=== PATIENT | female | born 1950 | race Caucasian/White ===

== ENCOUNTER 2023-05-06 11:20 | Emergency (ER) | payer MEDICARE, BC, SELFPAY ==
[2023-05-06 11:23] VITALS: BP 149/72
[2023-05-06 12:42] VITALS: BMI 31.9
--- NOTE | 2023-05-06 14:11 | ED.GENMED ---
History of Present Illness
General
Chief Complaint: Back Pain
Source: patient and spouse
Exam Limitations: none
Time Seen by Provider: 05/06/23 13:56
Nursing documentation reviewed up to this point in time: agreed with
Travel History
Have you had any contact with someone who has COVID-19?: No
Do you have any symptoms of coronavirus? Fever > 100 degrees, chills, cough, shortness of breath, sore throat, loss of taste or smell, muscle aches, or headache?: No
History of Present Illness
History of Present Illness:
72-year-old female with history of HTN, HLD, gastric bypass surgery 1990s, chronic back pain followed by Dr. Grajeda and has had approximately 6 epidural shots over the past 2 years for this pain. Her last epidural was in February. She had a
follow-up visit Dr. Grajeda's PA Lizzy and was recommended an MRI, patient has appointment for MRI in 1 week.
04/18/2023: Patient fell backwards landing on the left side of her lower back, she had mild pain in the same day, worse pain the next day and gradually increasing pain since and pain spread across her lower back
04/22/2023: She went to urgent care and had a negative x-ray and was put on a Medrol Dosepak which she finished on 04/28. She had some relief with her pain was able to do activities of daily living until 2 days ago when pain started to gradually get
worse.
2 days ago she went into a float tank and said that helped the pain but later that day the pain started to increase again.
She was able to drive her dog to the vet yesterday but after that the pain got so worse she could no longer do ADLs.
She presents now in tears with 10 out of 10 pain with any movement, laying completely still the pain is 7/10.
She took oxycodone 5 mg and Tylenol 325 2 tablets at 7 AM this morning with no relief of the pain.
She has had to use a cane or a walker to get around
She denies saddle anesthesia, denies loss of bowel or bladder control, denies weakness in her legs. She denies radiation of the pain.
Denies fever or abdominal pain
Past History
Past History
ED Past Medical History: GERD, HTN, Hypercholesterolemia and Psychiatric
ED Past Surgical History: Orthopedic and Other (Gastric bypass surgery )
Social History
Tobacco: Former smoker
Alcohol: Occasional
Drug: None
Personal:
Living: with family
Review of Systems
Review of Systems
Allergies reviewed?: Yes
All Other Systems: ROS reviewed and negative except as documented in HPI and ROS
Constitutional: Denies fever
Respiratory: Denies trouble breathing
Cardiac: Denies palpitations
ABD/GI: Denies abdominal pain
: Denies incontinence
Musculoskeletal: Reports back pain
Skin: Reports no symptoms
Neurological: Reports no symptoms
Phy Exam
Physical Exam
Physical Exam:
GENERAL: No acute distress. A&Ox3.
CONSTITUTIONAL: Afebrile.
EYES: Clear, conjunctivae normal
Neck: Supple
ENMT: moist mucus membranes, Pharynx nl
RESPIRATORY: Regular respirations, nonlabored, lungs clear.
CARDIOVASCULAR: Regular rate and rhythm, no murmurs, no rubs.
GI: Soft, nontender, normal BS
MUSCULOSKELETAL: Crying in pain, will defer exam until medications given none patient more comfortable well perfused.
SKIN: Warm, dry, pink
PSYCH: Tearful, anxious mood and affect. Well kept, interactive and appropriate
NEUROLOGIC: Awake, alert and oriented. No focal neurological deficits
Course
Orders/Labs/Results
Orders:
Orders
05/06/23 14:09
Dexamethasone Sod Phosphate [Decadron] 10 mg IV NOW STA
HYDROmorphone [Dilaudid] 1 mg IV NOW STA
Ketorolac [Toradol] 15 mg IV NOW STA
diazePAM [Valium Injection] 2 mg IV NOW STA
Vital Signs
Initial and Last Documented VS:
Initial Vital Signs
Temp Pulse Resp BP Pulse Ox
98.2 F 88 16 149/72 98
05/06/23 11:23 05/06/23 11:23 05/06/23 11:23 05/06/23 11:23 05/06/23 11:23
Last Documented Vital Signs
Temp Pulse Resp BP Pulse Ox
98.2 F 73 18 119/72 94
05/06/23 11:23 05/06/23 16:30 05/06/23 16:30 05/06/23 16:00 05/06/23 16:30
MDM/Problems Addressed
Differential Diagnosis Includes:
Lumbar strain/sprain,
MDM/Problems Addressed:
72-year-old female with history of HTN, HLD, gastric bypass surgery 1990s, chronic back pain followed by Dr. Grajeda and has had approximately 6 epidural shots over the past 2 years for this pain. Her last epidural was in February. She had a
follow-up visit Dr. Grajeda's PA Lizzy and was recommended an MRI, patient has appointment for MRI in 1 week.
04/18/2023: Patient fell backwards landing on the left side of her lower back, she had mild pain in the same day, worse pain the next day and gradually increasing pain since and pain spread across her lower back
04/22/2023: She went to urgent care and had a negative x-ray and was put on a Medrol Dosepak which she finished on 04/28. She had some relief with her pain was able to do activities of daily living until 2 days ago when pain started to gradually get
worse.
2 days ago she went into a float tank and said that helped the pain but later that day the pain started to increase again.
She was able to drive her dog to the vet yesterday but after that the pain got so worse she could no longer do ADLs.
She presents now in tears with 10 out of 10 pain with any movement, laying completely still the pain is 7/10.
She took oxycodone 5 mg and Tylenol 325 2 tablets at 7 AM this morning with no relief of the pain.
She has had to use a cane or a walker to get around
She denies saddle anesthesia, denies loss of bowel or bladder control, denies weakness in her legs. She denies radiation of the pain.
Denies fever or abdominal pain
Afebrile
Moderate distress, tearful
4:37 PM
feeling so much better. Pain is minimal at this time
No neurological deficits, strength 5/5 bilaterally
Out of bed independently and ambulating well comforatably
No systemic symptoms, much improved, do not suspect discitis
Prescription for prednisone, Vicodin, low-dose Valium sent to her pharmacy
She has an MRI scheduled for 7 days from tomorrow
At discharge pt ambulated out with normal gait
*Critical Care Note
Total Time (30-74mins, 75-104mins- exclusive of procedures): Not Applicable
ED Attending Note
-
Portions of this chart may have been created with voice recognition software.� Occasional wrong word or��sound alike� substitutions may have occurred due to the inherent limitations of voice recognition software.
Discharge Plan
Departure
Patient Disposition: Home (Routine Discharge)
Date of Disposition: 05/06/23
Time of Disposition: 16:38
Patient with high blood pressure during this ER visit?: No
Condition: Good
Discharge Problem:
Acute bilateral low back pain
Instructions: Low Back Pain (DC)
Prescriptions:
New
prednisone 20 mg tablet
40 mg PO DAILY Qty: 10 0RF
diazepam [Valium] 2 mg tablet
2 mg PO BID PRN (Reason: muscle spasm) Qty: 10 0RF
hydrocodone-acetaminophen 5-325 mg tablet
1 tab PO Q6H PRN (Reason: severe pain) Qty: 10 0RF
No Action
multivitamin Tablet
1 tab PO DAILY Qty: 0 0RF
atorvastatin 80 mg Tablet
80 mg PO HS Qty: 0 0RF
fluoxetine 20 mg Capsule
60 mg PO DAILY Qty: 0 0RF
coQ10 (ubiquinol) 200 mg Capsule
200 mg PO DAILY Qty: 0 0RF
Hold Instructions: Resume on 12/26/22.
[place] 3-Turmeric
2 tab PO DAILY Qty: 0 0RF
Hold Instructions: Resume on 12/26/22.
metoprolol succinate 50 mg tablet extended release 24 hr
50 mg PO DAILY Qty: 60 0RF
chromium picolinate 200 mcg Tablet
200 mcg PO DAILY
magnesium 200 mg Tablet
400 mg PO DAILY
qljnfysnpfr-uwnndejxf-rmi C-Mn 500-400 mg Capsule
1 cap PO DAILY
Hold Instructions: Resume on 12/26/22.
ashwagandha root extract 300 mg Capsule
300 mg PO DAILY
Hold Instructions: Resume on 12/26/22.
Collagen 1500 Plus C 500 mg-800 mcg- 50 mg Capsule
1 cap PO DAILY
pantoprazole 40 mg tablet,delayed release (DR/EC)
40 mg PO DAILY
oxycodone 5 mg tablet
5 - 10 mg PO Q6H PRN (Reason: moderate-severe pain) Qty: 30 0RF
Rx Instructions:
1 tab for moderate pain, 2 if severe.
Dx total joint.
dexamethasone 4 mg tablet
4 mg PO BID Qty: 7 0RF
Rx Instructions:
Start night of discharge and take twice a day until finished.
Take with food.
ondansetron 4 mg tablet,disintegrating
4 mg PO Q6H PRN (Reason: nausea and vomiting) Qty: 30 0RF
Rx Instructions:
Can take 1/2 hour prior to Oxycodone if experiencing recurrent nausea.
mupirocin 2 % ointment
1 applic intranasal BID Qty: 1 0RF
Patient Comments:
last dose was 12/18/22
sucralfate 1 gram tablet
1 g PO BID
thiamine HCl (vitamin B1) 100 mg Tablet
100 mg PO DAILY
cholecalciferol (vitamin D3) 25 mcg (1,000 unit) Tablet
25 mcg PO DAILY
garlic Capsule
1 cap PO DAILY
Hold Instructions: Resume on 12/26/22.
dha-epa-vit A-vit Q-nbtvsjr-DC Capsule
1 cap PO DAILY
Hold Instructions: Resume on 12/26/22.
green tea leaf extract Capsule
1 cap PO DAILY
Hold Instructions: Resume on 12/26/22.
pcnacxyg-qhev-ureyx-oreg-capry 100 mg-150 mg- 50 mg-150 mg Capsule
1 cap PO DAILY
Hold Instructions: Resume on 12/26/22.
Cordyceps
1 tab PO DAILY
Hold Instructions: Resume on 12/26/22.
tizanidine 2 mg Tablet
2 mg PO DAILYPRN PRN (Reason: muscle spasms)
Rx Instructions:
rarely takes
acetaminophen [Acetaminophen Extra Strength] 500 mg tablet
1,000 mg PO Q6H Qty: 30 0RF
Rx Instructions:
DO NOT exceed >4000 mg daily.
aspirin 325 mg tablet
325 mg PO DAILY Qty: 30 0RF
Rx Instructions:
Take daily x4 weeks for blood clot prevention; then resume Aspirin 81 mg daily.
docusate sodium [Colace] 100 mg capsule
100 mg PO BID Qty: 30 0RF
sennosides [senna] 8.6 mg tablet
17.2 mg PO BID Qty: 30 0RF
amlodipine 10 mg Tablet
10 mg PO DAILY Qty: 0 0RF
Rx Instructions:
HOLD IF systolic blood pressure <130 while on Oxycodone.
hydrochlorothiazide 25 mg Tablet
25 mg PO DAILY Qty: 0 0RF
Rx Instructions:
HOLD IF systolic blood pressure <140 while on Oxycodone.
losartan 100 mg Tablet
100 mg PO DAILY Qty: 0 0RF
Rx Instructions:
HOLD IF systolic blood pressure <130 while on Oxycodone.
oxycodone 5 mg tablet
5 mg PO Q6H PRN (Reason: moderate-severe pain) Qty: 30 0RF
Rx Instructions:
1 tab for moderate pain, 2 if severe.
Dx total joint.
dexamethasone 4 mg tablet
4 mg PO BID Qty: 7 0RF
Rx Instructions:
Start night of discharge and continue twice a day for 3 days post-surgery.
Take with food.
ondansetron HCl 4 mg tablet
4 mg PO Q6H PRN (Reason: nausea and vomiting) Qty: 30 0RF
Rx Instructions:
Can take 1/2 hour prior to Oxycodone if experiencing recurrent nausea.
Referrals:
Violet Bell CRNP [Family Provider] -
Activity Restrictions/Additional Instructions:
As we discussed, rest over the next few days
I sent a prescription to your pharmacy for prednisone 40 mg daily for 5 days, started tomorrow as you were given a dose of steroid here today.
I sent a prescription to your pharmacy for Vicodin or [place], this is a narcotic to take only for significant pain
I sent a prescription to your pharmacy for Valium 2 mg take one half of a tablet every 6 hours as needed for muscle spasm or low back pain that is not relieved with the Vicodin
Do not drive or operate any machinery within 8 hours of taking the Vicodin or the Valium.
See your doctor in 3-4 days if not improving
Interventions
Interventions:
*Risk Screen - Suicide Last Done: 05/06/23 11:23
*General Assessment Last Done: 05/06/23 11:23
*Neglect/Abuse Screening Last Done: 05/06/23 11:23
*ED COVID-19 Vaccine History Last Done: 05/06/23 12:42
*Nursing Disposition Last Done: 05/06/23 16:57
ED-Musculoskeletal Assessment Last Done: 05/06/23 12:42
Discharge Date and Time
Discharge Date/Time: 05/06/23 16:57
Print Language: SWEDISH
[2023-05-06] MEDS: VALIUM INJECTION 2 MG IV (14:20)
[2023-05-06] MEDS: TORADOL 15 MG IV (14:20)
[2023-05-06] MEDS: DECADRON 10 MG IV (14:20)
[2023-05-06] MEDS: DILAUDID 1 MG IV (14:21)
[2023-05-06 14:23] VITALS: BP 121/87
[2023-05-06 15:00] VITALS: BP 118/67
[2023-05-06 16:00] VITALS: BP 119/72
== END 2023-05-06 16:57 | disposition home or self-care (01) ==
LOC: EMR 11:20
PROVIDERS: EMERGENCY PHYSICIAN Emergency Medicine; FAMILY PHYSICIAN Nurse Practitioner Adult Health
DX: M54.50 Low back pain, unspecified (principal); I10 Essential (primary) hypertension; E78.00 Pure hypercholesterolemia, unspecified; G89.29 Other chronic pain; K21.9 Gastro-esophageal reflux disease without esophagitis; Z87.891 Personal history of nicotine dependence; Z98.84 Bariatric surgery status
CPT/HCPCS: 99282; 96374; 96375

== ENCOUNTER 2023-05-07 20:21 | Observation (INO) | payer MEDICARE, BC, SELFPAY ==
[2023-05-07 15:59] VITALS: BP 137/79
[2023-05-07 16:17] VITALS: BMI 33.4
[2023-05-07] MEDS: ZOFRAN 4 MG IV (17:08)
[2023-05-07 17:10] VITALS: BP 139/84
[2023-05-07] MEDS: DILAUDID 0.5 MG IV ×2 (17:14→18:29)
[2023-05-07] MEDS: TORADOL 15 MG IV (17:46)
--- NOTE | 2023-05-07 18:13 | ED.GENMED ---
History of Present Illness
General
Chief Complaint: Back Pain
Source: patient and spouse
Exam Limitations: none
Time Seen by Provider: 05/07/23 16:57
Nursing documentation reviewed up to this point in time: agreed with
Travel History
Have you had any contact with someone who has COVID-19?: No
Do you have any symptoms of coronavirus? Fever > 100 degrees, chills, cough, shortness of breath, sore throat, loss of taste or smell, muscle aches, or headache?: No
History of Present Illness
History of Present Illness:
Patient to ED with worsening low back pain. Fell 2 weeks ago and hurt her back. States she was starting to feel better but then Monday her back pain became severe. She was seen in ED yesterday for same. Given pain meds here and discharged home
with pain med rx. States pain continues to build. Crying and shaking in dept. Unable to get comfortable. Denies fever/chills, n/v/d. No abdominal pain. No urinary symptoms. Pain is worse with any typpe of movement. Brought to ED by spouse
for eval.
Past History
Past History
ED Past Medical History: GERD, HTN, Hypercholesterolemia and Psychiatric
ED Past Surgical History: Orthopedic and Other (Gastric bypass surgery )
Social History
Tobacco: Former smoker
Alcohol: Occasional
Drug: None
Personal:
Living: with family
Review of Systems
Review of Systems
Allergies reviewed?: Yes
All Other Systems: ROS reviewed and negative except as documented in HPI and ROS
Constitutional: Reports no symptoms
EENT: Reports no symptoms
Respiratory: Reports no symptoms
Cardiac: Reports no symptoms
ABD/GI: Reports no symptoms
: Reports no symptoms
Musculoskeletal: Reports back pain (Bilateral low back pain)
Skin: Reports no symptoms
Neurological: Reports no symptoms
Psychiatric: Reports no symptoms
Phy Exam
General Physical Exam
General Presentation: moderate distress
General age: appears stated age
General Skin: warm and dry
General Habitus: normal
General Mental: alert
Cardiovascular Exam
Cardiovascular Exam: regular rate/rhythm and no edema
Pulmonary Exam
Pulmonary Exam: lungs clear and no respiratory distress
Gastrointestinal Exam
Gastrointestinal Exam: normal bowel sounds, non tender, soft and no organomegaly
Musculoskeletal Exam
Musculoskeletal Exam: neuro vasc intact
Skin Exam
Skin Exam: normal color and warm/dry
Psychiatric Exam
Psychiatric Exam: normal mood/affect
Course
Orders/Labs/Results
Orders:
Orders
05/07/23 Breakfast
Cholesterol Lowering
At Your Request: Full Participation
Cholesterol Lowering: Sodium, 2 Gram
05/07/23 17:02
HYDROmorphone [Dilaudid] 0.5 mg IV NOW STA
Ondansetron Injectable [Zofran] 4 mg IV NOW STA
05/07/23 17:38
Ketorolac [Toradol] 15 mg IV NOW STA
05/07/23 18:12
HYDROmorphone [Dilaudid] 0.5 mg IV NOW STA
05/07/23 18:20
Urinalysis Reflex To Culture Urgent
Date Specimen was Collected: 05/08/23
Time Specimen was Collected: 16:29
05/07/23 18:27
Complete Blood Count/With Diff Urgent
Comprehensive Metabolic Panel Urgent
05/07/23 19:37
Admit/Transfer Patient As Directed
Co-Sign Provider:
Level of Care: Observation services
Assign to:: Medical/Surgical
Physician / Group: [email or web address]
Diagnosis: Intractable acute on chronic b/l LBP,acute ambulatory dysfunction
Reason for Hospitalization: Intractable acute on chronic b/l LBP following fall
Asscoaied with acute ambulatory dysfunction
05/07/23 19:41
Code Status As Directed
Resuscitation Status: Full Code
05/07/23 23:16
0.9% Sodium Chloride 1000 ml [Nss] 1,000 ml Mvi, Adult [Multivitamin] 10 ml Thiamine Injection 100 mg IV 40 mls/hr
Aspirin Chewable [Low Strength Aspirin] 81 mg PO HS
Atorvastatin [Lipitor] 80 mg PO HS
Diazepam [Valium] 2 mg PO TID
Docusate Sodium [Colace] 100 mg PO BID
Docusate Sodium [Colace] 100 mg PO BID
HYDROmorphone [Dilaudid] 0.5 mg IV Q1HPRN PRN
Hydrocodone 5/APAP 325 [[place] 5/325] 1 tablet PO Q6H PRN
Magnesium Hydroxide [Milk of Magnesia] 30 ml PO DAILYPRN PRN
Oxycodone [Roxicodone] 10 mg PO Q6H PRN
Oxycodone [Roxicodone] 5 mg PO Q4HPRN PRN
Sennosides [Senokot] 17.2 mg PO BID
Tamsulosin [Flomax] 0.4 mg PO DAILYPRN PRN
05/07/23 23:16
Activity As Directed
Activity Level: With Assistance
Bladder Scan As Directed
Follow Bladder Retention/Intermittent Cath Algorithm?: Yes
PRN if no void in __ hours: 6
Comment: if not voiding 6 hrs upon arrival to floor, bladder scan & follow algorithm
Intake/ Output As Directed
Frequency: Per unit guidelines
Straight Cath As Directed
Frequency: Per Retention Algorithm
Additional Instructions: straight cath as needed per acute urinary retention algorithm for 24 hrs
Additional Instructions: for bladder scan greater than 400 mL
Vital Signs As Directed
Frequency: Per unit guidelines
Ot Eval And Treat Routine
Pt Eval And Treat Routine
Activity Level: With Assistance
DX Deep Vein Thrombosis Video Routine
05/08/23 00:00
Acetaminophen [Tylenol] 1,000 mg PO Q6H
05/08/23 06:00
Lumbar Without Contrast MR [MR Lumbar Without Contrast] IN AM
Comment:
Reason For Exam: acute ambulatory dysfunction
Recent pill cam endoscopy?: No
05/08/23 08:00
Amlodipine [Norvasc] 10 mg PO DAILY
Fluoxetine HCl [Prozac] 60 mg PO DAILY
Hydrochlorothiazide [Oretic] 25 mg PO DAILY
Losartan [Cozaar] 100 mg PO DAILY
Pantoprazole [Protonix] 40 mg PO DAILY
05/08/23 18:00
Enoxaparin Sodium [Lovenox] 40 mg SC QPM
Abnormal Lab Results
05/07/23
18:27
RBC 3.87 L 10^6/uL
(4.20-5.40)
Hct 35.0 L %
(37.0-47.0)
MCH 32.8 H pg
(27.0-31.0)
Abs Immat Gran (auto) 0.1 H 10^3/uL
(0-0.05)
Absolute Neuts (auto) 9.4 H 10^3/uL
(1.4-6.5)
Absolute Lymphs (auto) 0.7 L 10^3/uL
(1.2-3.4)
Immature Gran % 0.6 H %
(0-0.5)
Neutrophils % 89.7 H %
(42.2-75.2)
Lymphocytes % 6.2 L %
(20.5-51.1)
Sodium 133 L mmol/L
(135-145)
BUN 21 H mg/dl
(7-17)
Glucose 139 H mg/dl
(70-99)
Alkaline Phosphatase 182 H U/L
(38-126)
05/07/23 18:27
05/07/23 18:27
Vital Signs
Initial and Last Documented VS:
Initial Vital Signs
Temp Pulse Resp BP Pulse Ox
98.6 F 87 20 137/79 99
05/07/23 15:59 05/07/23 15:59 05/07/23 15:59 05/07/23 15:59 05/07/23 15:59
Last Documented Vital Signs
Temp Pulse Resp BP Pulse Ox
98.1 F 71 17 120/60 99
05/09/23 07:18 05/09/23 07:30 05/09/23 07:18 05/09/23 07:30 05/09/23 07:18
*Critical Care Note
Total Time (30-74mins, 75-104mins- exclusive of procedures): Not Applicable
ED Attending Note
-
Portions of this chart may have been created with voice recognition software.� Occasional wrong word or��sound alike� substitutions may have occurred due to the inherent limitations of voice recognition software.
Discharge Plan
Departure
Patient Disposition: Admit
Date of Disposition: 05/07/23
Time of Disposition: 18:13
Presentation/result/management discussed w/ accepting MD/DO: Hospitalist
Patient with high blood pressure during this ER visit?: Yes
Discharge Problem:
Intractable low back pain
Interventions
Interventions:
*Risk Screen - Suicide Last Done: 05/07/23 16:18
*General Assessment Last Done: 05/07/23 16:18
*Neglect/Abuse Screening Last Done: 05/07/23 16:18
ED- Fall Risk Assessment Last Done: 05/08/23 05:30
*ED COVID-19 Vaccine History Last Done: 05/07/23 16:18
*Nursing Disposition Last Done: 05/08/23 18:32
ED-Musculoskeletal Assessment Last Done: 05/07/23 16:19
Discharge Date and Time
Discharge Date/Time: 05/08/23 18:33
Musculoskeletal Injury Exam
Musculoskeletal Injury Exam
Bilateral Lower Back:
Pain with Movement?: Moderate
Tender to palpation?: Moderate
Soft tissue swelling?: None
External deformity and angulation?: None
Joint effusion?: None
Contusion?: Moderate
Hematoma-local bleeding into tissue?: None
Strain- Sprain- Tear (Connective tissue injury)?: Moderate
Crepitus with movement?: No
Joint instability?: No
Range of motion: Limited
Distal skin color and temperature: normal-warm & good color
Capillary Refill: normal
Normal distal neurovascular exam?: Yes
[2023-05-07 18:28] VITALS: BP 132/84
[2023-05-07 18:31] LABS: % Basophils 0.1 % (0-2); % Immature Granulocytes 0.6 % (0-0.5); % Lymphocytes 6.2 % (20.5-51.1); % Monocytes 3.4 % (1.7-9.3); % Neutrophils 89.7 % (42.2-75.2); Absolute Immature Granulocytes 0.1 10^3/uL (0-0.05); Absolute Lymphocytes 0.7 10^3/uL (1.2-3.4); Absolute Monocytes 0.4 10^3/uL (0.1-0.6); Absolute Neutrophils 9.4 10^3/uL (1.4-6.5); Hemoglobin 12.7 g/dL (12.0-16.0); Mean Corp Hgb Conc. 36.3 g/dL (33.0-37.0); Mean Corpuscular Hgb 32.8 pg (27.0-31.0); Mean Corpuscular Volume 90.4 fL (81.0-99.0); Mean Platelet Volume 9.8 fL (7.4-10.4); Nucleated Red Blood Cells % 0 %; Platelet Count 352 10^3/uL (130-400); Red Blood Cell Count 3.87 10^6/uL (4.20-5.40); Red Cell Dist. Width 13.2 % (11.5-14.5); White Blood Cell Count 10.4 10^3/uL (4.8-10.8)
[2023-05-07 18:49] LABS: ALT (SGPT) 32 U/L (0-35); AST (SGOT) 36 U/L (14-36); Albumin 4.1 g/dl (3.5-5.0); Alkaline Phosphatase 182 U/L (38-126); Blood Urea Nitrogen 21 mg/dl (7-17); Carbon Dioxide 22 mmol/L (22-30); Chloride 101 mmol/L (98-107); Estimated Creatinine Clearance 77 ml/min; Glucose 139 mg/dl (70-99); Sodium 133 mmol/L (135-145); Total Bilirubin 1.2 mg/dl (0.2-1.3); Total Protein 6.7 g/dl (6.3-8.2); eGFR > 60.00
--- NOTE | 2023-05-07 19:31 | HPS.HSE ---
Family Physician
-
Family Physician: Violet Bell
Chief Complaint
-
Intractable acute on chronic b/l LBP
History of Present Illness
72F seconf visit to ER in 2 days for intractable LBP in tears.
HX chr LBP followed by Dr. Grajeda and has had approximately 6 epidural shots over the past 2 years for this pain.
04/18/2023: s/p fell backwards landing on the left side lower back since suffering progressive worsening pain that spread across her lower back
04/22/2023: Eval at [facility], NEG XR. Rx wiht Medrol Dosepak till 04/28. She had some relief with her pain was able to do activities of daily living until 2 days ago when pain started to gradually get worse.
2 days ago she went into a float tank and said that helped the pain but later that day the pain started to increase again.
She was able to drive her dog to the vet on 05/05/23 but after that the pain got so worse she could no longer do ADLs
She took oxycodone 5 mg and Tylenol 325 2 tablets at 7 AM with no relief of the pain.
She has had to use a cane or a walker to get around.
Today @ ER
IV Toradol 15mg
IV Dilaudid 0.5mg x 2
Still in pain with tears
Medical History
Past Medical History
Past Medical History: Reports Other
Additional Past Medical History:
GERD, HTN, Hypercholesterolemia and Psychiatric
Past Surgical History: Reports Other
Additional Past Surgical History:
GERD, HTN, Hypercholesterolemia and Psychiatric
Social History
Tobacco: Former Smoker
Alcohol: Occasional
Personal:
Living: With Family
Family History
Family History: Not pertinent
Allergies / Home Medications
Allergies reflects when Allergies were last updated in [facility].
Home Medications with original date entered in [facility]
Allergy/Medication List:
Allergies
Allergy/AdvReac Type Severity Reaction Status Date / Time
No Known Allergies Allergy Verified 05/07/23 15:59
Home Medications
[place] 3-Turmeric 2 tab PO DAILY Supplement ##0 10/22/22
atorvastatin 80 mg tablet 80 mg PO HS High cholesterol #0 tabs 10/22/22
coQ10 (ubiquinol) 200 mg capsule 200 mg PO DAILY Supplement #0 caps 10/22/22
fluoxetine 20 mg capsule 60 mg (3 x 20 mg) PO DAILY Mental Health/Anxiety #0 caps 10/22/22
multivitamin 1 tab PO DAILY Supplement #0 tabs 10/22/22
ashwagandha root extract 300 mg capsule 300 mg PO DAILY 11/23/22
chromium picolinate 200 mcg tablet 200 mcg PO DAILY 11/23/22
collagen,hydrolysate 500 mg-biotin 800 mcg-ascorbic acid 50 mg capsule (Collagen 1500 Plus C) 1 cap PO DAILY 11/23/22
evppfcyhzss-ubnflwhlo-txz C-Mn 500 mg-400 mg capsule 1 cap PO DAILY 11/23/22
magnesium 200 mg tablet 400 mg PO DAILY 11/23/22
pantoprazole 40 mg tablet,delayed release 40 mg PO DAILY Gastrointestinal issue 11/23/22
Cordyceps 1 tab PO DAILY 11/28/22
cholecalciferol (vitamin D3) 25 mcg (1,000 unit) tablet 25 mcg PO DAILY 11/28/22
dha-epa-vit A-vit X-sqopwza-KJ capsule 1 cap PO DAILY 11/28/22
garlic 1 cap PO DAILY 11/28/22
green tea leaf extract 1 cap PO DAILY 11/28/22
oxycodone 5 mg tablet 5 - 10 mg (1 - 2 x 5 mg) PO Q6H PRN moderate-severe pain #30 tabs 11/28/22
thiamine HCl (vitamin B1) 100 mg tablet 100 mg PO DAILY 11/28/22
turmeric 100 mg-janie 150 mg-olive 50 mg-oreg 150 mg-capryl capsule 1 cap PO DAILY 10/23/23
acetaminophen 500 mg tablet (Acetaminophen Extra Strength) 1,000 mg (2 x 500 mg) PO Q6H #30 tabs 12/19/22
amlodipine 10 mg tablet 10 mg PO DAILY Blood pressure #0 tabs 12/19/22
docusate sodium 100 mg capsule (Colace) 100 mg PO BID #30 caps 12/19/22
hydrochlorothiazide 25 mg tablet 25 mg PO DAILY Blood pressure #0 tabs 12/19/22
losartan 100 mg tablet 100 mg PO DAILY Blood pressure #0 tabs 12/19/22
sennosides 8.6 mg tablet (senna) 17.2 mg (2 x 8.6 mg) PO BID #30 tabs 12/19/22
diazepam 2 mg tablet (Valium) 2 mg PO BID PRN muscle spasm #10 tabs 05/06/23
hydrocodone 5 mg-acetaminophen 325 mg tablet 1 tab PO Q6H PRN severe pain #10 tabs 05/06/23
prednisone 20 mg tablet 40 mg (2 x 20 mg) PO DAILY #10 tabs 05/06/23
aspirin 81 mg chewable tablet 81 mg PO HS 05/07/23
Review of Systems
-
Constitutional: Reports No Symptoms
EENT: Reports No Symptoms
Respiratory: Reports No Symptoms
Cardiac: Reports No Symptoms
Abdomen/GI: Reports No Symptoms
: Reports No Symptoms
Musculoskeletal: Reports See HPI
Skin: Reports No Symptoms
Neurological: Reports No Symptoms
Endocrine: Reports No Symptoms
Hematologic/Lymphatic: Reports No Symptoms
Psych: Reports No Symptoms
Physical Exam
Vital Signs
Vital Signs
Temp Pulse Resp BP Pulse Ox
98.6 F 72 19 132/84 97
05/07/23 15:59 05/07/23 18:28 05/07/23 18:28 05/07/23 18:28 05/07/23 18:28
Physical Exam
General: Appears in Distress and Pain (b/l LBP )
HEENT: NormoCephalic, Moist mucous membranes and Atraumatic
Respiratory: Clear; No Wheezes, Rales or Rhonchi
Cardiac: S1/S2 and Regular Rhythm; No Tachycardia or Murmur
Breast: Deferred by me
GI: Soft, Non Tender, Non Distended and Normal Bowel Sounds
Genito-urinary: Deferred by me
Skin: Warm and Dry
Neuro: AO x 3, No Motor Deficits, No Sensory Deficits and Other (Able to do SLR up to 20-30 without shooting pain )
Psych: Anxious
Laboratory Results
-
05/07/23 18:27
05/07/23 18:27
Laboratory Results
Total Bilirubin 1.2 mg/dl (0.2-1.3) 05/07/23 18:27
AST 36 U/L (14-36) 05/07/23 18:27
ALT 32 U/L (0-35) 05/07/23 18:27
Alkaline Phosphatase 182 U/L (38-126) H 05/07/23 18:27
Data Reviewed
-
Lab Data: Labs Reviewed by me
Old Records: Reviewed
Impression/Plan
-
Reviewed VS: stable - unremarkable
Data
nl CBC
Na 133
BUN 21
BG 139
AKP 182
Pending UA
ASSESSMENT & PLAN
Intractable acute on chronic b/l LBP following fall
Associated with acute ambulatory dysfunction
HX chronic back pain followed by Dr. Grajeda- HX approximately 6 epidural shots over the past 2 years for this pain.
No neurological deficits, strength 5/5 bilaterally
No red flag signs (NO B/L progressive Glenna weakness. No sensory deficit. No B & B dysfunction)�
Able to do SLR up to 20-30 without shooting pain
- Repeat Medrol dose pack
- MS relaxant - Valium 2mf tid - hold for excessive sedation
- IV Dilaudid PRN and break thru pain
- MRI Lx spine tomorrow rather than 1 week later
- PT/OT
Primary HTN
- stable
- cont. Amlodipine
-
HLD
- cont Atorvastatin 80mg HS
Mild hyponatremia on HCTZ
- observe na in AM
- cont. HCTZ for now
HX gastric bypass surgery
- empiric banana bag
DVT Px: LMWH
Code: Full code
Obs MS
[2023-05-07 21:51] VITALS: BP 128/82
[2023-05-08] VITALS (8 sets, daily range): BP systolic 98–131; BP diastolic 61–80; BMI 32.5
[2023-05-08] MEDS: COLACE 100 MG PO ×3 (00:10→20:55)
[2023-05-08] MEDS: LIPITOR 80 MG PO ×2 (00:10→21:07)
[2023-05-08] MEDS: SENOKOT 17.1999999999999993 MG PO ×3 (00:11→20:55)
[2023-05-08] MEDS: VALIUM 2 MG PO ×4 (00:11→21:07)
[2023-05-08] MEDS: LOW STRENGTH ASPIRIN 81 MG PO ×2 (00:11→21:06)
[2023-05-08] MEDS: TYLENOL 1000 MG PO ×3 (00:12→18:35)
[2023-05-08] MEDS: MULTIVITAMIN 1011 ML IV (00:47)
[2023-05-08] MEDS: MULTIVITAMIN 1011 MG IV (00:47)
[2023-05-08] MEDS: TYLENOL PO (06:00)
[2023-05-08] MEDS: COZAAR PO (07:25)
[2023-05-08] MEDS: NORVASC PO (07:26)
[2023-05-08] MEDS: ORETIC PO (07:26)
[2023-05-08] MEDS: PROTONIX 40 MG PO (07:26)
[2023-05-08] MEDS: PROZAC 60 MG PO (07:27)
[2023-05-08] MEDS: DILAUDID 0.5 MG IV (09:36)
[2023-05-08] MEDS: ROXICODONE 10 MG PO ×2 (09:38→18:35)
--- NOTE | 2023-05-08 09:42 | EDRN ---
getting pt a boxed lunch at this time.
--- NOTE | 2023-05-08 12:27 | CM ---
Cm reviewed medical records. CM met with patient in room. Patient confirmed demographics. Patient lives independently in two floor home. Patient denies history of VN, SNF. Patient has a walker and cane. Patient is active with her PCP. Patient uses
[facility] in [place].
[facility] letter given. Pending PT evaluation for further discharge planning efforts.
--- NOTE | 2023-05-08 12:52 | EDRN ---
Pt moved from rom #24 to [facility] 1 at this time and care passed to Alanna Buchanan RN at that time.
--- NOTE | 2023-05-08 15:24 | W.PN.HOSP.TC ---
Today's Communication/Plan
-
see plan
Assessment / Plan
Assessment / Plan
ASSESSMENT & PLAN
Intractable acute on chronic b/l LBP following fall 2/2 Sacral fracture of L side
Associated with acute ambulatory dysfunction
HX chronic back pain followed by Dr. Grajeda- HX approximately 6 epidural shots over the past 2 years for this pain.
No neurological deficits, strength 5/5 bilaterally
No red flag signs (NO B/L progressive Glenna weakness. No sensory deficit. No B & B dysfunction)�
Able to do SLR up to 20-30 without shooting pain
- Repeat Medrol dose pack
- MS relaxant - Valium 2mf tid - hold for excessive sedation
- IV Dilaudid PRN and break thru pain
- MRI L spine - inferior L sacral fracture, suspected R possible sacral inferior frx
L2-L3, L3-L5 stenosis which is known to pt, and she gets steroid injections
- PT/OT
Primary HTN
- stable
- cont. Amlodipine
-
HLD
- cont Atorvastatin 80mg HS
Mild hyponatremia on HCTZ
- observe na in AM
- cont. HCTZ for now
HX gastric bypass surgery
- empiric banana bag
Anticipated Discharge: 24 - 48 hours
Subjective/Interval History
-
Date of Service: May 08, 2023
pt doing ok with narcotic analgesia
pain still an issue
no bowel/bladder incontinenence
no saddle anesthesia.
Objective Data
-
Vital Signs:
Vital Signs
Temp Pulse Resp BP Pulse Ox
98.0 F 66 16 115/80 93
05/08/23 09:25 05/08/23 13:00 05/08/23 13:00 05/08/23 13:00 05/08/23 13:00
Review of Systems
-
History Source: Patient
All other systems: Reviewed and negative
Musculoskeletal: Reports Other (back pain)
Physical Exam
-
General: Well Developed and Pain
HEENT: Normocephalic, Atraumatic and Moist Mucous Membranes
Respiratory: Clear to Auscultation
Cardiac: Regular Rhythm and S1/S2; Negative Murmur, Rub or Gallop
GI: Soft, Nontender, Nondistended and Normal Bowel Sounds; Negative Organomegaly
Rectal: Deferred by Provider
Musculoskeletal: No Clubbing, No Cyanosis and No Edema
Skin: Negative Rash
Neuro: Nonfocal/Grossly Intact
Data Reviewed
-
Diagnostic Radiology: Report Reviewed by me and Discussed with Patient
[2023-05-08 16:56] LABS: Urine Albumin Negative (Neg - Trace); Urine Bilirubin Negative (Negative); Urine Character Clear (Clear); Urine Color Yellow; Urine Glucose Negative (Negative); Urine Ketone Negative (Negative); Urine Leukocyte Trace (Negative); Urine Nitrite Negative (Negative); Urine Occult Blood Negative (Negative); Urine Urobilinogen Negative (Neg - 1+)
[2023-05-08 17:07] LABS: Urine Squamous Cell 16-20 /LPF (Few)
[2023-05-08 17:08] LABS: Urine Bacteria Many (Negative); Urine Red Blood Cell 0-2 /HPF (0-2)
[2023-05-08] MEDS: LOVENOX 40 MG SC (18:35)
[2023-05-09 00:01] VITALS: BP 107/66
[2023-05-09] MEDS: TYLENOL 1000 MG PO ×3 (00:19→12:13)
[2023-05-09] MEDS: ROXICODONE 10 MG PO (05:30)
[2023-05-09 06:00] VITALS: BMI 32.4
[2023-05-09 06:34] LABS: % Basophils 0.6 % (0-2); % Eosinophils 1.3 % (0-6); % Immature Granulocytes 0.2 % (0-0.5); % Monocytes 9.6 % (1.7-9.3); % Neutrophils 56.3 % (42.2-75.2); Absolute Eosinophils 0.1 10^3/uL (0-0.7); Absolute Lymphocytes 1.7 10^3/uL (1.2-3.4); Absolute Monocytes 0.5 10^3/uL (0.1-0.6); Absolute Neutrophils 2.9 10^3/uL (1.4-6.5); Hematocrit 32.5 % (37.0-47.0); Hemoglobin 11.2 g/dL (12.0-16.0); Mean Corp Hgb Conc. 34.5 g/dL (33.0-37.0); Mean Corpuscular Hgb 32.5 pg (27.0-31.0); Mean Corpuscular Volume 94.2 fL (81.0-99.0); Mean Platelet Volume 9.2 fL (7.4-10.4); Nucleated Red Blood Cells % 0 %; Platelet Count 271 10^3/uL (130-400); Red Blood Cell Count 3.45 10^6/uL (4.20-5.40); Red Cell Dist. Width 13.6 % (11.5-14.5); White Blood Cell Count 5.2 10^3/uL (4.8-10.8)
[2023-05-09 06:58] LABS: ALT (SGPT) 24 U/L (0-35); AST (SGOT) 27 U/L (14-36); Albumin 3.2 g/dl (3.5-5.0); Alkaline Phosphatase 134 U/L (38-126); Blood Urea Nitrogen 14 mg/dl (7-17); Calcium 8.9 mg/dl (8.4-10.2); Carbon Dioxide 26 mmol/L (22-30); Chloride 105 mmol/L (98-107); Estimated Creatinine Clearance 87 ml/min; Glucose 87 mg/dl (70-99); Potassium 3.4 mmol/L (3.5-5.1); Sodium 136 mmol/L (135-145); Total Bilirubin 0.7 mg/dl (0.2-1.3); Total Protein 5.5 g/dl (6.3-8.2); eGFR > 60.00
[2023-05-09 07:18] VITALS: BP 120/60
[2023-05-09] MEDS: SENOKOT 17.1999999999999993 MG PO (07:29)
[2023-05-09] MEDS: COLACE 100 MG PO (07:30)
[2023-05-09] MEDS: COZAAR 100 MG PO (07:30)
[2023-05-09] MEDS: PROTONIX 40 MG PO (07:30)
[2023-05-09] MEDS: VALIUM 2 MG PO (07:30)
[2023-05-09] MEDS: PROZAC 60 MG PO (07:30)
[2023-05-09] MEDS: NORVASC 10 MG PO (07:30)
[2023-05-09] MEDS: ORETIC 25 MG PO (07:30)
[2023-05-09] MEDS: DILAUDID 0.5 MG IV (09:07)
--- NOTE | 2023-05-09 11:10 | CM ---
Addendum entered by Jose Roberto Edwards 05/09/23 13:31:
Discharge order is noted. Both pt and her are aware, No IMM needed, pt is OBS status.
Please fax discharge instructions to [id number] at [phone]
D/C plan: home with [facility] and family support. to transport.
Original Note:
CM following re: discharge planning.
Reviewed pt's chart, met with pt and pt's at bedside.
PT and OT evaluations noted - home PT/OT recommended. Both pt and her are aware, expressed their agreement. A list of VN vendors provided. [facility] is chosen. A referral to [facility] made.
Please fax discharge instructions to [id number] at [phone]
D/C plan: home with [facility] and family support. to transport at discharge.
CM will follow with discharge plan updates as hospitalization progresses
[2023-05-09] MEDS: KCL 40 MEQ PO (12:12)
--- NOTE | 2023-05-09 12:12 | W.DCSUMMARY ---
Discharge Summary
Discharge Data
Date of Admission: 05/07/23
Date of Discharge: 05/09/23
Total time spent discharging patient (in min): 37 min dc
-
Pending Results: No
Hospital Course
72 F presents after fall found to have L sacral ala fracture and possible R inferior sacral ala fracture. She has chronic degenerative changes of L spine and known L2-L5 areas of stenosis which she follows with a physician for epidural injections.
Pt does not require inpatient rehab. Her pain is managed appropriately and she is ambulating. No red flag symptoms of back pain such as bowel/bladder incontinence, saddle anesthesia or numbness or focal weakness.
gen: nad
heent: no jvd
lungs : cta b
abd: soft non tender
neuro: no focal deficits, no weakness
psych: calm
extrem: no edema
skin : no rash
cv: RRR no mrg
Discharge Plan
-
Patient Disposition: Home (Routine Discharge)
Discharge Diagnosis/Procedures: sacral frx.
Diet: Regular
Activity: As tolerated
Driving Restrictions: no driving while on pain med
Referrals:
Violet Bell CRNP [Family Provider] -
Prescriptions:
Continued
multivitamin Tablet
1 tab PO DAILY Qty: 0 0RF
atorvastatin 80 mg Tablet
80 mg PO HS Qty: 0 0RF
fluoxetine 20 mg Capsule
60 mg PO DAILY Qty: 0 0RF
chromium picolinate 200 mcg Tablet
200 mcg PO DAILY
magnesium 200 mg Tablet
400 mg PO DAILY
Collagen 1500 Plus C 500 mg-800 mcg- 50 mg Capsule
1 cap PO DAILY
pantoprazole 40 mg tablet,delayed release (DR/EC)
40 mg PO DAILY
thiamine HCl (vitamin B1) 100 mg Tablet
100 mg PO DAILY
cholecalciferol (vitamin D3) 25 mcg (1,000 unit) Tablet
25 mcg PO DAILY
amlodipine 10 mg Tablet
10 mg PO DAILY Qty: 0 0RF
hydrochlorothiazide 25 mg Tablet
25 mg PO DAILY Qty: 0 0RF
losartan 100 mg Tablet
100 mg PO DAILY Qty: 0 0RF
prednisone 20 mg tablet
40 mg PO DAILY Qty: 10 0RF
Patient Comments:
05/08/2023, x 5 days.
diazepam [Valium] 2 mg tablet
2 mg PO BID PRN (Reason: muscle spasm) Qty: 10 0RF
Patient Comments:
05/08/2023, pt. filled this med. on 05/06/2023 for 10 tablets per PDMP.
hydrocodone-acetaminophen 5-325 mg tablet
1 tab PO Q6H PRN (Reason: severe pain) Qty: 10 0RF
Patient Comments:
05/08/2023, pt. filled this med. on 05/06/2023 for 10 tablets per PDMP.
sennosides [senna] 8.6 mg Tablet
17.2 mg PO HS
aspirin 81 mg Tablet,Delayed Release (Dr/Ec)
81 mg PO HS
acetaminophen [Tylenol Extra Strength] 500 mg Tablet
1,000 mg PO Q6H PRN (Reason: mild pain)
oxycodone-acetaminophen 5-325 mg Tablet
1 tab PO Q4H PRN (Reason: severe pain)
Patient Comments:
05/08/2023, pt. filled this med. on 05/02/2023 for 30 tablets per PDMP.
docusate sodium [Colace] 100 mg Capsule
100 mg PO HS
green tea leaf extract Capsule
1 cap PO DAILY
coQ10 (ubiquinol) 200 mg Capsule
200 mg PO DAILY
ashwagandha root extract 300 mg Capsule
300 mg PO DAILY
turmeric 400 mg Capsule
400 mg PO DAILY
Glucosamine Chondroitin 550-30-1 mg Capsule
1 cap PO DAILY
Cordyceps Supplement
1 tab PO DAILY
Medical Marijuana
1 gummy PO DAILYPRN PRN (Reason: severe pain)
Patient Comments:
05/08/2023, per pt., they use a chewable tablet form of medical marijuana dailyprn for pain.
[place] 3-Turmeric
2 tab PO DAILY
garlic
1 cap PO DAILY
Discontinued
oxycodone 5 mg Tablet
5 mg PO Q6H PRN (Reason: severe pain)
Patient Comments:
05/08/2023, pt. filled this med. on 12/19/2022 for 30 tablets per PDMP.
Discharge Orders:
Discharge Patient (As Directed); Ordered 05/09/23
Ordered By: Dylan Trinh
Discharge Date and Time
Print Language: AMHARIC
--- NOTE | 2023-05-09 12:12 | W.DS.TRANS ---
DC Summary - Genetic Counselor
-
Discharge Instructions:
Discharge Diagnosis/Procedures sacral frx.
Diet Regular
Activity As tolerated
Driving Restrictions no driving while on pain med
Instructions:
Stand-Alone Forms:
Changes to Home Medications: No
Discharge Medications:
DC Medications w/original date entered in [facility]
atorvastatin 80 mg tablet 80 mg PO HS High cholesterol #0 tabs 10/22/22
fluoxetine 20 mg capsule 60 mg (3 x 20 mg) PO DAILY Mental Health/Anxiety #0 caps 10/22/22
multivitamin 1 tab PO DAILY Supplement #0 tabs 10/22/22
chromium picolinate 200 mcg tablet 200 mcg PO DAILY 11/23/22
collagen,hydrolysate 500 mg-biotin 800 mcg-ascorbic acid 50 mg capsule (Collagen 1500 Plus C) 1 cap PO DAILY 11/23/22
magnesium 200 mg tablet 400 mg PO DAILY 11/23/22
pantoprazole 40 mg tablet,delayed release 40 mg PO DAILY Gastrointestinal issue 11/23/22
cholecalciferol (vitamin D3) 25 mcg (1,000 unit) tablet 25 mcg PO DAILY 11/28/22
thiamine HCl (vitamin B1) 100 mg tablet 100 mg PO DAILY 11/28/22
amlodipine 10 mg tablet 10 mg PO DAILY Blood pressure #0 tabs 12/19/22
hydrochlorothiazide 25 mg tablet 25 mg PO DAILY Blood pressure #0 tabs 12/19/22
losartan 100 mg tablet 100 mg PO DAILY Blood pressure #0 tabs 12/19/22
diazepam 2 mg tablet (Valium) 2 mg PO BID PRN muscle spasm #10 tabs 05/06/23
hydrocodone 5 mg-acetaminophen 325 mg tablet 1 tab PO Q6H PRN severe pain #10 tabs 05/06/23
prednisone 20 mg tablet 40 mg (2 x 20 mg) PO DAILY #10 tabs 05/06/23
Cordyceps Supplement 1 tab PO DAILY 05/08/23
Medical Marijuana 1 gummy PO DAILYPRN PRN severe pain 05/08/23
[place] 3-Turmeric 2 tab PO DAILY 05/08/23
acetaminophen 500 mg tablet (Tylenol Extra Strength) 1,000 mg PO Q6H PRN mild pain 05/08/23
ashwagandha root extract 300 mg capsule 300 mg PO DAILY 05/08/23
aspirin 81 mg tablet,delayed release 81 mg PO HS 05/08/23
coQ10 (ubiquinol) 200 mg capsule 200 mg PO DAILY 05/08/23
docusate sodium 100 mg capsule (Colace) 100 mg PO HS 05/08/23
garlic 1 cap PO DAILY 05/08/23
glucosamine sulf dipot chlr,msm,chond 550 mg-C 30 mg-tosin 1 mg capsule (Glucosamine Chondroitin) 1 cap PO DAILY 05/08/23
green tea leaf extract 1 cap PO DAILY 05/08/23
oxycodone-acetaminophen 5 mg-325 mg tablet 1 tab PO Q4H PRN severe pain 05/08/23
sennosides 8.6 mg tablet (senna) 17.2 mg PO HS 05/08/23
turmeric 400 mg capsule 400 mg PO DAILY 05/08/23
Home Medication Changes
Pending Results: No
Total time spent discharging patient (in min): 37
--- NOTE | 2023-05-09 12:39 | VNURNOTE ---
Home Health Liaison met with patient at 1200 to discuss [facility] therapy, visits, schedule and homebound status. Patient is agreeable and understands that visits at home will be 2-3 x per week to assess and teach strengthening and balance exercises.
[facility] brochure provided with contact information. Patient is aware that [facility] will contact her for start of care in 1-2 days after discharge from .
[facility] referral completed in [facility].
== END 2023-05-09 13:24 | disposition home health service (06) ==
LOC: 3 WEST ACU 20:21
PROVIDERS: Nurse Practitioner; ADMITTING PHYSICIAN Internal Medicine; ATTENDING PHYSICIAN Internal Medicine; EMERGENCY PHYSICIAN Emergency Medicine; FAMILY PHYSICIAN Nurse Practitioner Adult Health
DX: S32.19XA Other fracture of sacrum, initial encounter for closed fracture (principal); M54.9 Dorsalgia, unspecified; I10 Essential (primary) hypertension; K21.9 Gastro-esophageal reflux disease without esophagitis; G89.29 Other chronic pain; M47.816 Spondylosis without myelopathy or radiculopathy, lumbar region; E87.1 Hypo-osmolality and hyponatremia; M48.061 Spinal stenosis, lumbar region without neurogenic claudication; E78.5 Hyperlipidemia, unspecified; R26.2 Difficulty in walking, not elsewhere classified; M54.50 Low back pain, unspecified; E78.00 Pure hypercholesterolemia, unspecified; W19.XXXA Unspecified fall, initial encounter; Y93.9 Activity, unspecified; Y92.9 Unspecified place or not applicable; Z87.891 Personal history of nicotine dependence; Z98.84 Bariatric surgery status; Z79.82 Long term (current) use of aspirin
CPT/HCPCS: 72148; 80053; 81003; 81015; 85025; 87077; 87086; 87186; 96374; 96375; 96376; 97162; 99285; G0378

== ENCOUNTER 2023-05-15 02:28 | Emergency (ER) | payer MEDICARE, BC, SELFPAY ==
[2023-05-15 02:30] VITALS: BP 124/86
[2023-05-15 02:57] VITALS: BMI 32.6
--- NOTE | 2023-05-15 03:06 | ED.MUSCINJ ---
HPI-Injury
General
Chief Complaint: Fall
Source: patient and spouse
Exam Limitations: none
Time Seen by Provider: 05/15/23 02:57
Nursing documentation reviewed up to this point in time: agreed with
Travel History
Have you had any contact with someone who has COVID-19?: No
Do you have any symptoms of coronavirus? Fever > 100 degrees, chills, cough, shortness of breath, sore throat, loss of taste or smell, muscle aches, or headache?: No
History of Present Illness-Injury
Initial Injury comments:
72-year-old female who presents with right shoulder pain. She states that she was walking this evening and tripped over a laundry basket. She landed on her right shoulder. She did bruise her nose. She has no nasal pain complaints at this time.
She denies loss of consciousness. She is not on any blood thinners. She denies numbness and tingling in the right arm.
Past History
Past History
ED Past Medical History: GERD, HTN, Hypercholesterolemia and Psychiatric
ED Past Surgical History: Orthopedic and Other (Gastric bypass surgery )
Social History
Tobacco: Former smoker
Alcohol: Occasional
Drug: None
Personal:
Living: with family
Review of Systems
Review of Systems
Allergies reviewed?: Yes
All Other Systems: ROS reviewed and negative except as documented in HPI and ROS
Musculoskeletal: Reports joint pain, joint swelling and muscle pain
Musculoskeletal Injury Exam
Musculoskeletal Injury Exam
Right Shoulder:
Pain with Movement?: Moderate
Tender to palpation?: Moderate
Soft tissue swelling?: Mild
External deformity and angulation?: None
Joint effusion?: Mild
Contusion?: Mild
Hematoma-local bleeding into tissue?: None
Joint instability?: Yes
Range of motion: Limited
Distal skin color and temperature: normal-warm & good color
Capillary Refill: normal
Normal distal neurovascular exam?: Yes
Phy Exam
General Physical Exam
General Presentation: well appearing and mild distress
General age: appears stated age
General Skin: warm and dry
General Habitus: normal
General Mental: alert
ENT Exam
ENT Exam: EOMI and other (No septal hematoma noted)
Eye Exam
Eye Exam: PERRL and EOMI
Cardiovascular Exam
Cardiovascular Exam: regular rate/rhythm
Pulmonary Exam
Pulmonary Exam: lungs clear and no respiratory distress
Gastrointestinal Exam
Gastrointestinal Exam: non tender and soft
Neurological Exam
Neurological Exam: alert and oriented x3
Musculoskeletal Exam
Musculoskeletal Exam: no edema
Skin Exam
Skin Exam: normal color and warm/dry
Psychiatric Exam
Psychiatric Exam: normal mood/affect
Injury Course
Orders/Labs/Results
Orders:
Orders
05/15/23 02:33
Humerus, Right 2 Views [CR Humerus - Right Min 2 View*] Urgent
Comment:
Reason For Exam: FALL
05/15/23 02:57
Splints/Slings/Crut- Treatment ONCE
Crutches: No
Sling to: Right Arm
Location: Right
Type of Splint: Long Arm
Comment: sugar tong
05/15/23 03:06
Oxycodone/Acetaminophen [Percocet 5/325] 1 tablet PO NOW STA
*Radiology
Radiology exam reviewed: preliminary read by ED provider (Proximal humeral head fracture, comminuted but minimally displaced)
*Critical Care Note
Total Time (30-74mins, 75-104mins- exclusive of procedures): Not Applicable
Update Note
Update Note:
Patient has seen Dr. Lou in the past.
ED Attending Note
-
Portions of this chart may have been created with voice recognition software.� Occasional wrong word or��sound alike� substitutions may have occurred due to the inherent limitations of voice recognition software.
Discharge Plan
Departure
Patient Disposition: Home (Routine Discharge)
Date of Disposition: 05/15/23
Time of Disposition: 05:01
Patient with high blood pressure during this ER visit?: Yes
Discharge Problem:
Fracture of head of humerus, Contusion of nose, Fall
Instructions: Head Injury in Adults (DC), Preventing falls in adults, Shoulder Fracture (DC), How to Use a Shoulder Sling, BLOOD PRESSURE
Prescriptions:
New
oxycodone-acetaminophen [Percocet] 5-325 mg tablet
1 tab PO Q4HPRN PRN (Reason: pain) Qty: 7 0RF
No Action
multivitamin Tablet
1 tab PO DAILY Qty: 0 0RF
atorvastatin 80 mg Tablet
80 mg PO HS Qty: 0 0RF
fluoxetine 20 mg Capsule
60 mg PO DAILY Qty: 0 0RF
chromium picolinate 200 mcg Tablet
200 mcg PO DAILY
magnesium 200 mg Tablet
400 mg PO DAILY
Collagen 1500 Plus C 500 mg-800 mcg- 50 mg Capsule
1 cap PO DAILY
pantoprazole 40 mg tablet,delayed release (DR/EC)
40 mg PO DAILY
thiamine HCl (vitamin B1) 100 mg Tablet
100 mg PO DAILY
cholecalciferol (vitamin D3) 25 mcg (1,000 unit) Tablet
25 mcg PO DAILY
amlodipine 10 mg Tablet
10 mg PO DAILY Qty: 0 0RF
hydrochlorothiazide 25 mg Tablet
25 mg PO DAILY Qty: 0 0RF
losartan 100 mg Tablet
100 mg PO DAILY Qty: 0 0RF
prednisone 20 mg tablet
40 mg PO DAILY Qty: 10 0RF
Patient Comments:
05/08/2023, x 5 days.
diazepam [Valium] 2 mg tablet
2 mg PO BID PRN (Reason: muscle spasm) Qty: 10 0RF
Patient Comments:
05/08/2023, pt. filled this med. on 05/06/2023 for 10 tablets per PDMP.
hydrocodone-acetaminophen 5-325 mg tablet
1 tab PO Q6H PRN (Reason: severe pain) Qty: 10 0RF
Patient Comments:
05/08/2023, pt. filled this med. on 05/06/2023 for 10 tablets per PDMP.
sennosides [senna] 8.6 mg Tablet
17.2 mg PO HS
aspirin 81 mg Tablet,Delayed Release (Dr/Ec)
81 mg PO HS
acetaminophen [Tylenol Extra Strength] 500 mg Tablet
1,000 mg PO Q6H PRN (Reason: mild pain)
oxycodone-acetaminophen 5-325 mg Tablet
1 tab PO Q4H PRN (Reason: severe pain)
Patient Comments:
05/08/2023, pt. filled this med. on 05/02/2023 for 30 tablets per PDMP.
docusate sodium [Colace] 100 mg Capsule
100 mg PO HS
green tea leaf extract Capsule
1 cap PO DAILY
coQ10 (ubiquinol) 200 mg Capsule
200 mg PO DAILY
ashwagandha root extract 300 mg Capsule
300 mg PO DAILY
turmeric 400 mg Capsule
400 mg PO DAILY
Glucosamine Chondroitin 550-30-1 mg Capsule
1 cap PO DAILY
Cordyceps Supplement
1 tab PO DAILY
Medical Marijuana
1 gummy PO DAILYPRN PRN (Reason: severe pain)
Patient Comments:
05/08/2023, per pt., they use a chewable tablet form of medical marijuana dailyprn for pain.
[place] 3-Turmeric
2 tab PO DAILY
garlic
1 cap PO DAILY
Referrals:
Violet Bell CRNP [Family Provider] -
Teo Jenkins MD [Active] -
Activity Restrictions/Additional Instructions:
It was a pleasure meeting you and taking part in your care. We hope for your continued healing and wellness.
Please read discharge instructions in their entirety. However, they are for general education and may not describe your exact diagnosis at discharge. Information on your ER visit and medical conditions were discussed with you along with appropriate
follow up information...
If indicated, please take your medications as instructed and indicated on discharge paperwork.
Please schedule a follow up appointment as directed. Call to schedule an appointment
Please return to the emergency department with ANY change in, persisting, or worsening of symptoms. If any of your symptoms do not improve, or persist, or become more severe within 6-12 hours, please return to the emergency department for further
care.
Please return to the emergency department if you develop a headache, neck pain/stiffness, fever greater than 100.4F, chest pain, shortness of breath, persistent nausea, vomiting, slurred speech, difficulty walking, numbness/tingling, weakness, signs
of infection or any other symptoms that are worrisome to you.
If you have any questions or concerns please do not hesitate to call the Hospital at or E-mail me directly at [email or web address]
Interventions
Interventions:
*Risk Screen - Suicide Last Done: 05/15/23 02:30
*General Assessment Last Done: 05/15/23 02:57
*Neglect/Abuse Screening Last Done: 05/15/23 02:30
ED- Fall Risk Assessment Last Done: 05/15/23 02:57
*ED COVID-19 Vaccine History Last Done: 05/15/23 02:57
ED-Musculoskeletal Assessment Last Done: 05/15/23 02:57
ED- Neurological Assessment Last Done: 05/15/23 02:57
ED-Skin Assessment Last Done: 05/15/23 02:57
Discharge Date and Time
Print Language: YI
[2023-05-15] MEDS: PERCOCET 5/325 1 TABLET PO (03:29)
[2023-05-15 05:44] VITALS: BP 126/82
== END 2023-05-15 05:46 | disposition home or self-care (01) ==
LOC: EMR 02:28
PROVIDERS: EMERGENCY PHYSICIAN Student in an Organized Health Care Education/Training Program; FAMILY PHYSICIAN Nurse Practitioner Adult Health
DX: S42.201A Unspecified fracture of upper end of right humerus, initial encounter for closed fracture (principal); S00.33XA Contusion of nose, initial encounter; W01.0XXA Fall on same level from slipping, tripping and stumbling without subsequent striking against object, initial encounter; Y93.01 Activity, walking, marching and hiking; K21.9 Gastro-esophageal reflux disease without esophagitis; I10 Essential (primary) hypertension; E78.00 Pure hypercholesterolemia, unspecified; Z87.891 Personal history of nicotine dependence; Z98.84 Bariatric surgery status
CPT/HCPCS: 99283; 73060

== ENCOUNTER → 2023-05-16 14:42 | Outpatient (REF) | payer MEDICARE, BC, SELFPAY | LOC: RAD 14:42 | PROVIDERS: ATTENDING PHYSICIAN Orthopaedic Surgery Hand Surgery; FAMILY PHYSICIAN Nurse Practitioner Adult Health | DX: S42.201A Unspecified fracture of upper end of right humerus, initial encounter for closed fracture (principal) | CPT/HCPCS: 73200 ==

== ENCOUNTER → 2023-05-24 06:30 | Day surgery (SDC) | payer MEDICARE, BC, SELFPAY ==
--- NOTE | 2023-05-22 13:14 | PTCARENOTE ---
K+ 3.4Elly at Dr Mcdowell office notified.
--- NOTE | 2023-05-22 13:39 | PTCARENOTE ---
K+ 3.[address] Back.
[2023-05-24] VITALS (14 sets, daily range): BP systolic 107–154; BP diastolic 42–110; BMI 31.9
[2023-05-24] MEDS: TYLENOL 1000 MG PO (13:29)
[2023-05-24] MEDS: CELEBREX 200 MG PO (13:29)
[2023-05-24] MEDS: DILAUDID 1 MG IV (14:24)
[2023-05-24] MEDS: NORMOSOL-R 1000 IV (14:35)
--- NOTE | 2023-05-24 14:36 | PTCARENOTE ---
Upon entry to pt's room pt noted to be crying and tense. Pt is in a lot of pain and discomfort. Anesthesia made aware. Repositioned pt, multiple times. Moved pt to bay 1. See MAR. Pt's now at bedside with pt. Pt positioned with more pillows.
Wearing sling at this time also for comfort.
== END ==
LOC: SDS 06:30
PROVIDERS: ATTENDING PHYSICIAN Orthopaedic Surgery Hand Surgery
DX: S42.201A Unspecified fracture of upper end of right humerus, initial encounter for closed fracture (principal); X58.XXXA Exposure to other specified factors, initial encounter
CPT/HCPCS: 23472; C1776; 73020; C1713

== ENCOUNTER 2023-06-05 19:29 | Emergency (ER) | payer MEDICARE, BC, SELFPAY ==
[2023-06-05 19:31] VITALS: BP 176/96
[2023-06-05 19:48] LABS: % Basophils 0.4 % (0-2); % Eosinophils 0.2 % (0-6); % Immature Granulocytes 0.5 % (0-0.5); % Lymphocytes 10.5 % (20.5-51.1); % Monocytes 4.4 % (1.7-9.3); Absolute Basophils 0.1 10^3/uL (0-0.2); Absolute Immature Granulocytes 0.1 10^3/uL (0-0.05); Absolute Lymphocytes 1.3 10^3/uL (1.2-3.4); Absolute Monocytes 0.6 10^3/uL (0.1-0.6); Absolute Neutrophils 10.6 10^3/uL (1.4-6.5); Hematocrit 35.1 % (37.0-47.0); Hemoglobin 12.6 g/dL (12.0-16.0); Mean Corp Hgb Conc. 35.9 g/dL (33.0-37.0); Mean Corpuscular Hgb 32.2 pg (27.0-31.0); Mean Corpuscular Volume 89.8 fL (81.0-99.0); Nucleated Red Blood Cells % 0 %; Red Blood Cell Count 3.91 10^6/uL (4.20-5.40); Red Cell Dist. Width 12.5 % (11.5-14.5); White Blood Cell Count 12.6 10^3/uL (4.8-10.8)
[2023-06-05 19:59] LABS: Lactic Acid 1.3 mmol/L (0.7-2.0)
[2023-06-05 20:01] LABS: Mean Platelet Volume 8.7 fL (7.4-10.4); Platelet Count 623 10^3/uL (130-400)
[2023-06-05 20:12] LABS: ALT (SGPT) 24 U/L (0-35); AST (SGOT) 31 U/L (14-36); Albumin 4.4 g/dl (3.5-5.0); Alkaline Phosphatase 226 U/L (38-126); Blood Urea Nitrogen 10 mg/dl (7-17); Calcium 10.1 mg/dl (8.4-10.2); Carbon Dioxide 22 mmol/L (22-30); Chloride 104 mmol/L (98-107); Glucose 169 mg/dl (70-99); Lipase 188 U/L (23-300); Potassium 3.4 mmol/L (3.5-5.1); Sodium 135 mmol/L (135-145); Total Bilirubin 0.6 mg/dl (0.2-1.3); Total Protein 7.2 g/dl (6.3-8.2); eGFR > 60.00
[2023-06-05 20:33] VITALS: BP 179/90
--- NOTE | 2023-06-05 20:56 | ED.GENMED ---
History of Present Illness
General
Chief Complaint: Abdominal Pain
Source: patient
Exam Limitations: none
Time Seen by Provider: 06/05/23 20:49
Travel History
Have you had any contact with someone who has COVID-19?: No
Do you have any symptoms of coronavirus? Fever > 100 degrees, chills, cough, shortness of breath, sore throat, loss of taste or smell, muscle aches, or headache?: No
History of Present Illness
History of Present Illness:
See MDM
Past History
Past History
ED Past Medical History: GERD, HTN, Hypercholesterolemia and Psychiatric
ED Past Surgical History: Orthopedic and Other (Gastric bypass surgery )
Social History
Tobacco: Former smoker
Alcohol: Occasional
Drug: None
Personal:
Living: with family
Phy Exam
Physical Exam
Physical Exam:
See MDM
Course
Orders/Labs/Results
Orders:
Orders
06/05/23 19:42
Complete Blood Count/With Diff Urgent
Comprehensive Metabolic Panel Urgent
Lactic Acid Urgent
Lipase Urgent
Blood Culture Urgent
FRANCK Source: Blood/Venous
Specimen Description:
06/05/23 20:54
0.9% Sodium Chloride 1000 ml [Nss] 1,000 ml IV BOLUS
HYDROmorphone [Dilaudid] 1 mg IV NOW STA
Iohexol [Omnipaque] See Protocol PO NOW STA
Ondansetron Injectable [Zofran] 4 mg IV NOW STA
Pantoprazole [Protonix IV] 40 mg IV NOW STA
06/05/23 21:43
HYDROmorphone [Dilaudid] 1 mg IV NOW STA
06/05/23 23:43
HYDROmorphone [Dilaudid] 1 mg IV NOW STA
06/06/23 00:15
CT Abd/pel W Iv And Oral Contr Urgent
Comment: Hx Gastric Bypass
Reason For Exam: Mid abd pain
Abnormal Lab Results
06/05/23
19:42
WBC 12.6 H 10^3/uL
(4.8-10.8)
RBC 3.91 L 10^6/uL
(4.20-5.40)
Hct 35.1 L %
(37.0-47.0)
MCH 32.2 H pg
(27.0-31.0)
Plt Count 623 H 10^3/uL
(130-400)
Abs Immat Gran (auto) 0.1 H 10^3/uL
(0-0.05)
Absolute Neuts (auto) 10.6 H 10^3/uL
(1.4-6.5)
Neutrophils % 84.0 H %
(42.2-75.2)
Lymphocytes % 10.5 L %
(20.5-51.1)
Potassium 3.4 L mmol/L
(3.5-5.1)
Glucose 169 H mg/dl
(70-99)
Alkaline Phosphatase 226 H U/L
(38-126)
06/05/23 19:42
06/05/23 19:42
Vital Signs
Initial and Last Documented VS:
Initial Vital Signs
Temp Pulse Resp BP Pulse Ox
98.3 F 94 20 176/96 99
06/05/23 19:31 06/05/23 19:31 06/05/23 19:31 06/05/23 19:31 06/05/23 19:31
Last Documented Vital Signs
Temp Pulse Resp BP Pulse Ox
98.3 F 86 23 121/75 100
06/05/23 19:31 06/06/23 01:00 06/06/23 01:00 06/06/23 01:00 06/05/23 21:36
MDM/Problems Addressed
Differential Diagnosis Includes:
HPI and MDM Narrative:
72-year-old female presenting with worsening abdominal pain and nausea. Patient initially stated that this feels similar to her prior episode where she had a gastric ulcer. Patient does have a history of gastric bypass. She is uncomfortable on my
exam and has significant tenderness throughout. She does admit to decreased flatulence. She denies prior history of small bowel obstruction
Given her significant tenderness, will obtain CT to rule out small bowel obstruction.
Physical exam
General: Uncomfortable
HEENT: protecting airway
Neck: appears supple
CV: No evidence of cyanosis
Resp: No accessory muscle use
Abd: Non-distended. Generalized abdominal tenderness.
Extremities: No deformities
Neuro: alert
Psych: Tearful
Skin: Intact
Problems Addressed including Acute and Chronic Conditions affecting care:
1. Abdominal pain
Acuity: acute
Prognosis: unstable
Details: Given history of gastric ulcer, will start IV Protonix. Given history of gastric bypass, will obtain CT rule out small bowel obstruction
Updates
CT negative for acute abdominal pathology. There was incidental concern for sacral aicha fracture. Patient states had a recent fall and was diagnosed with sacral fracture. I discussed increased stool burden on CT. Patient states she was recently
taking narcotics for pain after surgery.
I discussed whether or not patient feels comfortable going home. Patient states she is feeling much better and is going to continue her pantoprazole. She has GI follow-up next few weeks.
Differential Diagnosis (but not limited to): Small bowel obstruction, internal hernia, gastric ulcer
Testing considered: EKG but symptoms appear to be GI related
Drug therapy (if applicable): OTC meds, please see d/c instruction regarding Rx drugs
Amount and/or Complexity of Data Reviewed
Clinical info obtained from: Patient
External data reviewed: Endoscopy performed 5 months ago showing prior evidence of gastric ulcer
Labs I independently reviewed (but not limited to): Mild leukocytosis
Radiology: The CT scan was personally and independently reviewed. In addition, official CT report reviewed.
Pulse Ox: not hypoxic
EKG independently reviewed: N/A
Wire Threader: N/A
Critical Care: N/A
Risk of Complication:
Social Determinants of health: Good social support
Discussed with other providers: N/A
Escalation of Care includes Admit/Obs: After being observed in the Emergency Department, pt stable for discharge.
Occasional wrong word or 'sound a like' substitutions may have occurred due to the inherent limitations of voice recognition software. Read the chart carefully and recognize, using context, where substitutions have occurred.
*Critical Care Note
Total Time (30-74mins, 75-104mins- exclusive of procedures): Not Applicable
ED Attending Note
-
Portions of this chart may have been created with voice recognition software.� Occasional wrong word or��sound alike� substitutions may have occurred due to the inherent limitations of voice recognition software.
Discharge Plan
Departure
Patient Disposition: Home (Routine Discharge)
Date of Disposition: 06/06/23
Time of Disposition: 01:42
Patient with high blood pressure during this ER visit?: No
Discharge Problem:
Abdominal pain
Instructions: Abdominal Pain
Prescriptions:
No Action
multivitamin Tablet
1 tab PO DAILY Qty: 0 0RF
atorvastatin 80 mg Tablet
80 mg PO HS Qty: 0 0RF
chromium picolinate 200 mcg Tablet
200 mcg PO DAILY
magnesium 200 mg Tablet
400 mg PO DAILY
Collagen 1500 Plus C 500 mg-800 mcg- 50 mg Capsule
1 cap PO DAILY
pantoprazole 40 mg tablet,delayed release (DR/EC)
40 mg PO DAILY
thiamine HCl (vitamin B1) 100 mg Tablet
100 mg PO DAILY
cholecalciferol (vitamin D3) 25 mcg (1,000 unit) Tablet
25 mcg PO DAILY
amlodipine 10 mg Tablet
10 mg PO DAILY Qty: 0 0RF
hydrochlorothiazide 25 mg Tablet
25 mg PO DAILY Qty: 0 0RF
losartan 100 mg Tablet
100 mg PO DAILY Qty: 0 0RF
sennosides [senna] 8.6 mg Tablet
17.2 mg PO HS
aspirin 81 mg Tablet,Delayed Release (Dr/Ec)
81 mg PO HS
acetaminophen [Tylenol Extra Strength] 500 mg Tablet
1,000 mg PO Q6H PRN (Reason: mild pain)
docusate sodium [Colace] 100 mg Capsule
100 mg PO HS
green tea leaf extract Capsule
1 cap PO DAILY
coQ10 (ubiquinol) 200 mg Capsule
200 mg PO DAILY
ashwagandha root extract 300 mg Capsule
300 mg PO DAILY
turmeric 400 mg Capsule
400 mg PO DAILY
Glucosamine Chondroitin 550-30-1 mg Capsule
1 cap PO DAILY
Cordyceps Supplement
1 tab PO DAILY
Medical Marijuana
1 gummy PO DAILYPRN PRN (Reason: severe pain)
Patient Comments:
05/08/2023, per pt., they use a chewable tablet form of medical marijuana dailyprn for pain.
[place] 3-Turmeric
2 tab PO DAILY
garlic
1 cap PO DAILY
oxycodone-acetaminophen [Percocet] 5-325 mg tablet
1 tab PO Q4HPRN PRN (Reason: pain) Qty: 7 0RF
tizanidine 4 mg Capsule
4 mg PO BID PRN (Reason: spasms)
fluoxetine 60 mg Tablet
60 mg PO DAILY
Referrals:
Violet Bell CRNP [Family Provider] -
Activity Restrictions/Additional Instructions:
Please return for any worsening symptoms.
You may return at any time if you have further concerns.
Please keep your endoscopy follow-up. Continue taking the pantoprazole. Restart your bowel regimen.
Thank you for choosing [facility].
Interventions
Interventions:
*Risk Screen - Suicide Last Done: 06/05/23 19:31
*General Assessment Last Done: 06/05/23 19:31
*Neglect/Abuse Screening Last Done: 06/05/23 19:31
ED- Fall Risk Assessment Last Done: 06/05/23 21:36
*ED COVID-19 Vaccine History Last Done: 06/05/23 21:36
WK-Rzvpry-Kukulmvwom Assessment Last Done: 06/05/23 21:36
Discharge Date and Time
Print Language: GUAMANIAN
[2023-06-05 21:00] VITALS: BP 169/89
[2023-06-05] MEDS: DILAUDID 1 MG IV ×3 (21:20→23:47)
[2023-06-05] MEDS: NSS 1000 IV (21:23)
[2023-06-05] MEDS: OMNIPAQUE 50 ML PO (21:24)
[2023-06-05] MEDS: ZOFRAN 4 MG IV (21:25)
[2023-06-05] MEDS: PROTONIX IV 40 MG IV (21:27)
[2023-06-05 21:34] VITALS: BMI 31.5
[2023-06-05 22:00] VITALS: BP 164/86
[2023-06-05 23:00] VITALS: BP 166/88
[2023-06-06] VITALS: BP 155/79
[2023-06-06 01:00] VITALS: BP 121/75
== END 2023-06-06 01:57 | disposition home or self-care (01) ==
LOC: EMR 19:29
PROVIDERS: Emergency Medicine; EMERGENCY PHYSICIAN Student in an Organized Health Care Education/Training Program; FAMILY PHYSICIAN Nurse Practitioner Adult Health
DX: R10.9 Unspecified abdominal pain (principal); S32.10XA Unspecified fracture of sacrum, initial encounter for closed fracture; R14.3 Flatulence; W19.XXXA Unspecified fall, initial encounter; I10 Essential (primary) hypertension; K21.9 Gastro-esophageal reflux disease without esophagitis; E78.00 Pure hypercholesterolemia, unspecified; Z87.11 Personal history of peptic ulcer disease; Z87.891 Personal history of nicotine dependence; Z79.82 Long term (current) use of aspirin; Z98.84 Bariatric surgery status
CPT/HCPCS: 99285; 96374; 96375 ×2; 96376; 96361; 74177; 80053; 83605; 83690; 85025; 87040; Q9967

== ENCOUNTER 2023-06-06 22:42 | Inpatient (IN) | payer MEDICARE, BC, SELFPAY ==
[2023-06-06 20:29] VITALS: BP 165/88
[2023-06-06 20:52] VITALS: BMI 30.1
[2023-06-06 20:54] VITALS: BP 161/81
--- NOTE | 2023-06-06 20:54 | ED.GENMED ---
History of Present Illness
General
Chief Complaint: Abdominal Pain
Source: patient
Exam Limitations: none
Time Seen by Provider: 06/06/23 20:42
Travel History
Have you had any contact with someone who has COVID-19?: No
Do you have any symptoms of coronavirus? Fever > 100 degrees, chills, cough, shortness of breath, sore throat, loss of taste or smell, muscle aches, or headache?: No
History of Present Illness
History of Present Illness:
See MDM
Past History
Past History
ED Past Medical History: GERD, HTN, Hypercholesterolemia and Psychiatric
ED Past Surgical History: Orthopedic and Other (Gastric bypass surgery )
Social History
Tobacco: Former smoker
Alcohol: Occasional
Drug: None
Personal:
Living: with family
Phy Exam
Physical Exam
Physical Exam:
See MDM
Course
Orders/Labs/Results
Orders:
Orders
06/06/23 20:52
0.9% Sodium Chloride 1000 ml [Nss] 1,000 ml IV BOLUS
HYDROmorphone [Dilaudid] 1 mg IV NOW STA
Pantoprazole [Protonix IV] 40 mg IV NOW STA
06/06/23 20:53
US Abdomen Limited Urgent
Reason For Exam: RUQ pain, F/U CT CHOLELITHIASIS
06/06/23 21:05
CBC/With Diff [Complete Blood Count/With Diff] Urgent
CMP [Comprehensive Metabolic Panel] Urgent
06/06/23 21:35
HYDROmorphone [Dilaudid] 1 mg IV NOW STA
Abnormal Lab Results
06/06/23
21:05
WBC 10.9 H 10^3/uL
(4.8-10.8)
RBC 3.94 L 10^6/uL
(4.20-5.40)
Hct 36.4 L %
(37.0-47.0)
MCH 32.2 H pg
(27.0-31.0)
Plt Count 652 H 10^3/uL
(130-400)
Absolute Neuts (auto) 7.0 H 10^3/uL
(1.4-6.5)
Absolute Monos (auto) 1.0 H 10^3/uL
(0.1-0.6)
Glucose 129 H mg/dl
(70-99)
Calcium 10.4 H mg/dl
(8.4-10.2)
Alkaline Phosphatase 211 H U/L
(38-126)
06/06/23 21:05
06/06/23 21:05
Vital Signs
Initial and Last Documented VS:
Initial Vital Signs
Temp Pulse BP Pulse Ox
98.1 F 98 165/88 98
06/06/23 20:29 06/06/23 20:29 06/06/23 20:29 06/06/23 20:29
Last Documented Vital Signs
Temp Pulse BP Pulse Ox
98.1 F 98 156/76 98
06/06/23 20:29 06/06/23 20:29 06/06/23 21:00 06/06/23 21:08
MDM/Problems Addressed
Differential Diagnosis Includes:
HPI and MDM Narrative:
72-year-old female presenting back to the emergency department with abdominal pain. She was seen in the emergency department yesterday with the same complaint. At that time, she had a CT showing no acute pathology. Because much of her symptoms
were similar to her prior history of gastric ulcers, she felt comfortable going home with continuing Protonix. She has GI appointment in a few weeks. However, symptoms recurred earlier today.
Will provide IV pain medicine and PPI. Patient had CT abdomen/pelvis yesterday. Will obtain right upper quadrant ultrasound given cholelithiasis
Patient did have recent shoulder surgery. She was prescribed narcotics. CT performed yesterday was concerning for moderate stool burden. At that time, patient did forget to take her bowel regimen. She did take her bowel regimen earlier today and
did have a bowel movement.
Physical exam
General: Uncomfortable
HEENT: protecting airway
Neck: appears supple
CV: No evidence of cyanosis
Resp: No accessory muscle use
Abd: Non-distended. Mild generalized abdominal pain without rebound
Extremities: No deformities
Neuro: alert
Psych: Anxious
Skin: Intact
Problems Addressed including Acute and Chronic Conditions affecting care:
1. Abdominal pain
Acuity: acute
Prognosis: stable
Details: Will obtain right upper quadrant ultrasound. Will continue IV pain medicine and likely admit given that this is her second visit in 2 days
Updates
Ultrasound negative for acute pathology. Patient still uncomfortable. Given the multiple doses of pain medicine and the recurrence of symptoms, will admit
Differential Diagnosis (but not limited to): Gastric ulcer, symptomatic cholelithiasis, constipation
Testing considered: Repeat CT but was performed yesterday
Drug therapy (if applicable): OTC meds, please see d/c instruction regarding Rx drugs
Amount and/or Complexity of Data Reviewed
Clinical info obtained from: Patient
External data reviewed: History of Emily-en-Y
Labs I independently reviewed (but not limited to): LFTs within normal limits
Radiology: Ultrasound report reviewed
Pulse Ox: not hypoxic
EKG independently reviewed: N/A
Donation Worker: N/A
Critical Care: N/A
Risk of Complication:
Social Determinants of health: Good social support
Discussed with other providers: Hospitalist
Escalation of Care includes Admit/Obs: Given the recurrent symptoms, will continue IV Protonix and admit
Occasional wrong word or 'sound a like' substitutions may have occurred due to the inherent limitations of voice recognition software. Read the chart carefully and recognize, using context, where substitutions have occurred.
*Critical Care Note
Total Time (30-74mins, 75-104mins- exclusive of procedures): Not Applicable
ED Attending Note
-
Portions of this chart may have been created with voice recognition software.� Occasional wrong word or��sound alike� substitutions may have occurred due to the inherent limitations of voice recognition software.
Discharge Plan
Departure
Patient Disposition: Admit
Date of Disposition: 06/06/23
Time of Disposition: 22:03
Admit to: Med/Surg
Presentation/result/management discussed w/ accepting MD/DO: Hospitalist
Discharge Problem:
Abdominal pain
Prescriptions:
No Action
multivitamin Tablet
1 tab PO DAILY Qty: 0 0RF
atorvastatin 80 mg Tablet
80 mg PO HS Qty: 0 0RF
chromium picolinate 200 mcg Tablet
200 mcg PO DAILY
magnesium 200 mg Tablet
400 mg PO DAILY
Collagen 1500 Plus C 500 mg-800 mcg- 50 mg Capsule
1 cap PO DAILY
pantoprazole 40 mg tablet,delayed release (DR/EC)
40 mg PO DAILY
cholecalciferol (vitamin D3) 25 mcg (1,000 unit) Tablet
25 mcg PO DAILY
amlodipine 10 mg Tablet
10 mg PO DAILY Qty: 0 0RF
hydrochlorothiazide 25 mg Tablet
25 mg PO DAILY Qty: 0 0RF
losartan 100 mg Tablet
100 mg PO DAILY Qty: 0 0RF
sennosides [senna] 8.6 mg Tablet
17.2 mg PO HS
aspirin 81 mg Tablet,Delayed Release (Dr/Ec)
81 mg PO HS
acetaminophen [Tylenol Extra Strength] 500 mg Tablet
1,000 mg PO Q6H PRN (Reason: mild pain)
docusate sodium [Colace] 100 mg Capsule
100 mg PO HS
green tea leaf extract Capsule
1 cap PO DAILY
coQ10 (ubiquinol) 200 mg Capsule
200 mg PO DAILY
ashwagandha root extract 300 mg Capsule
300 mg PO DAILY
turmeric 400 mg Capsule
400 mg PO DAILY
Glucosamine Chondroitin 550-30-1 mg Capsule
1 cap PO DAILY
[place] 3-Turmeric
2 tab PO DAILY
garlic
1 cap PO DAILY
fluoxetine 20 mg capsule
60 mg PO DAILY
Dha W/ Vitamin D
1 tab PO DAILY
oxycodone-acetaminophen [Percocet] 5-325 mg tablet
1 tab PO Q6HPRN PRN (Reason: moderate pain)
Patient Comments:
06/06/2023: last filled 05/24/23, 40 tabs for 10 days from [facility]
Referrals:
Violet Bell CRNP [Family Provider] -
Interventions
Interventions:
*Risk Screen - Suicide Last Done: 06/06/23 20:30
*General Assessment Last Done: 06/06/23 20:30
*Neglect/Abuse Screening Last Done: 06/06/23 20:30
ED- Fall Risk Assessment Last Done: 06/06/23 21:08
*ED COVID-19 Vaccine History Last Done: 06/06/23 21:08
UL-Cgweno-Zyyfryeqoi Assessment Last Done: 06/06/23 21:08
Discharge Date and Time
Print Language: DJIBOUTIAN
[2023-06-06] MEDS: DILAUDID 1 MG IV ×2 (20:56→21:38)
[2023-06-06] MEDS: NSS 1000 IV (20:59)
[2023-06-06] MEDS: PROTONIX IV 40 MG IV (20:59)
[2023-06-06 21:00] VITALS: BP 156/76
[2023-06-06 21:12] LABS: % Basophils 0.5 % (0-2); % Eosinophils 1.1 % (0-6); % Immature Granulocytes 0.3 % (0-0.5); % Lymphocytes 24.6 % (20.5-51.1); % Monocytes 9.1 % (1.7-9.3); % Neutrophils 64.4 % (42.2-75.2); Absolute Basophils 0.1 10^3/uL (0-0.2); Absolute Eosinophils 0.1 10^3/uL (0-0.7); Absolute Lymphocytes 2.7 10^3/uL (1.2-3.4); Hematocrit 36.4 % (37.0-47.0); Hemoglobin 12.7 g/dL (12.0-16.0); Mean Corp Hgb Conc. 34.9 g/dL (33.0-37.0); Mean Corpuscular Hgb 32.2 pg (27.0-31.0); Mean Corpuscular Volume 92.4 fL (81.0-99.0); Mean Platelet Volume 8.8 fL (7.4-10.4); Nucleated Red Blood Cells % 0 %; Platelet Count 652 10^3/uL (130-400); Red Blood Cell Count 3.94 10^6/uL (4.20-5.40); Red Cell Dist. Width 12.7 % (11.5-14.5); White Blood Cell Count 10.9 10^3/uL (4.8-10.8)
[2023-06-06 21:28] LABS: ALT (SGPT) 21 U/L (0-35); AST (SGOT) 30 U/L (14-36); Albumin 4.3 g/dl (3.5-5.0); Alkaline Phosphatase 211 U/L (38-126); Blood Urea Nitrogen 9 mg/dl (7-17); Calcium 10.4 mg/dl (8.4-10.2); Carbon Dioxide 23 mmol/L (22-30); Chloride 102 mmol/L (98-107); Estimated Creatinine Clearance 97 ml/min; Glucose 129 mg/dl (70-99); Potassium 3.6 mmol/L (3.5-5.1); Sodium 136 mmol/L (135-145); Total Bilirubin 0.6 mg/dl (0.2-1.3); eGFR > 60.00
--- NOTE | 2023-06-06 21:56 | HPS.HSE ---
Family Physician
-
Family Physician: Violet Bell
Chief Complaint
-
abdominal pain
History of Present Illness
Ms. Kaya Clifton is a 72 yo woman with hx gasric bypass surgery, PUD, chronic back pain, HLD, HTN, recent admission 05/06-05/08 for left sacral fracture, left proximal humerus fracture s/p surgery 05/23, ER visit 06/04 for abdominal pain with CT showing
no acute pathology represents today for continued pain.
Patient states over the past week she has felt unwell and has been unable to keep food down. She has been vomiting the food she has eaten. Over the past two days she has been able to eat small amounts of food but has burning in her abdomen. She
came to the ER yesterday with severe pain. She received several doses of Dilaudid. CT showed no acute pathology and she was discharged home. Patient thought she was doing better until she developed severe pain again this evening. She has
received 2 doses of IV Dilaudid in the ER and currently states she is feeling better. Per , she wouldn't be able to converse with me before.
Patient states she recently ran out of Protonix. She had a shoulder fracture s/p OR on 05/23 and was taking Motrin several times per day for a few days.
She had a bowel movement today that she reports was normal but darker in color. She took pepto bismol yesterday.
She smokes a cigarette 1-2 x/month and denies currently alcohol use.
No fevers. No chest pain. She reports feeling lightheaded and winded over past week. No LE swelling. No rash.
Patient was admitted October 2022 with abdominal pain s/p EGD showing peptic ulcers.
Medical History
Past Medical History
Past Medical History: Reports Other
Additional Past Medical History:
GERD, HTN, Hypercholesterolemia and Psychiatric
Past Surgical History: Reports Other
Social History
Tobacco: Other (reports 1-2 cigarettes/ month )
Alcohol: Occasional
Personal:
Living: With Family
Family History
Family History: Not pertinent
Allergies / Home Medications
Allergies reflects when Allergies were last updated in [facility].
Home Medications with original date entered in [facility]
Allergy/Medication List:
Allergies
Allergy/AdvReac Type Severity Reaction Status Date / Time
No Known Allergies Allergy Verified 06/05/23 19:31
Home Medications
atorvastatin 80 mg tablet 80 mg PO HS High cholesterol #0 tabs 10/22/22
multivitamin 1 tab PO DAILY Supplement #0 tabs 10/22/22
chromium picolinate 200 mcg tablet 200 mcg PO DAILY 11/23/22
collagen,hydrolysate 500 mg-biotin 800 mcg-ascorbic acid 50 mg capsule (Collagen 1500 Plus C) 1 cap PO DAILY 11/23/22
magnesium 200 mg tablet 400 mg PO DAILY 11/23/22
pantoprazole 40 mg tablet,delayed release 40 mg PO DAILY Gastrointestinal issue 11/23/22
cholecalciferol (vitamin D3) 25 mcg (1,000 unit) tablet 25 mcg PO DAILY 11/28/22
amlodipine 10 mg tablet 10 mg PO DAILY Blood pressure #0 tabs 12/19/22
hydrochlorothiazide 25 mg tablet 25 mg PO DAILY Blood pressure #0 tabs 12/19/22
losartan 100 mg tablet 100 mg PO DAILY Blood pressure #0 tabs 12/19/22
[place] 3-Turmeric 2 tab PO DAILY 05/08/23
acetaminophen 500 mg tablet (Tylenol Extra Strength) 1,000 mg PO Q6H PRN mild pain 05/08/23
ashwagandha root extract 300 mg capsule 300 mg PO DAILY 05/08/23
aspirin 81 mg tablet,delayed release 81 mg PO HS 05/08/23
coQ10 (ubiquinol) 200 mg capsule 200 mg PO DAILY 05/08/23
docusate sodium 100 mg capsule (Colace) 100 mg PO HS 05/08/23
garlic 1 cap PO DAILY 05/08/23
glucosamine sulf dipot chlr,msm,chond 550 mg-C 30 mg-tosin 1 mg capsule (Glucosamine Chondroitin) 1 cap PO DAILY 05/08/23
green tea leaf extract 1 cap PO DAILY 05/08/23
sennosides 8.6 mg tablet (senna) 17.2 mg PO HS 05/08/23
turmeric 400 mg capsule 400 mg PO DAILY 05/08/23
Dha W/ Vitamin D 1 tab PO DAILY 06/06/23
fluoxetine 20 mg capsule 60 mg PO DAILY 06/06/23
oxycodone-acetaminophen 5 mg-325 mg tablet (Percocet) 1 tab PO Q6HPRN PRN moderate pain 06/06/23
Review of Systems
-
History Source: Patient
A 12 point ROS was completed and negative except as noted: Yes
Physical Exam
Vital Signs
Vital Signs
Temp Pulse BP Pulse Ox
98.1 F 98 156/76 98
06/06/23 20:29 06/06/23 20:29 06/06/23 21:00 06/06/23 21:08
Physical Exam
General: Conversant and Other (appears in pain )
HEENT: PERRLA
Respiratory: Clear; No Wheezes
Cardiac: Regular Rhythm
GI: Other (mild discomfort epigastric region, no rebound or guarding )
Musculoskeletal: No Edema
Skin: Warm and Dry; No Rash
Neuro: AO x 3
Psych: Calm
Laboratory Results
-
06/06/23 21:05
06/06/23 21:05
Laboratory Results
Total Bilirubin 0.6 mg/dl (0.2-1.3) 06/06/23 21:05
AST 30 U/L (14-36) 06/06/23 21:05
ALT 21 U/L (0-35) 06/06/23 21:05
Alkaline Phosphatase 211 U/L (38-126) H 06/06/23 21:05
Data Reviewed
-
Diagnostic Radiology: Report Reviewed by me
Lab Data: Labs Reviewed by me
Impression/Plan
-
Ms. Kaya Clifton is a 72 yo woman with hx gasric bypass surgery, PUD, chronic back pain, HLD, HTN, recent admission 05/06-05/08 for left sacral fracture, ER visit 06/04 for abdominal pain with negative work-up for SBO represents today for continued
pain.
Triage VS: T 98.1, P 98, BP 165/88, SpO2 98%
LABS: WBC 10.9, Hg 12.7, PLT 652, Na 136, K+ 3.6, Cr 0.6, Glucose 129, Ca 10.4, T. Bili 0.6, AST 30, ALT 21, Alk Phos 211
RUQ US:
Examination is limited. The patient is reportedly not fasting. There is a large amount of bowel gas.
Limited visibility of the gallbladder There is a small gallstone identified within the gallbladder lumen. No gallbladder wall thickening. Reportedly, the pain was given pain medication.
No bile duct dilatation; the common bile duct measures 3.4 mm.
Increased hepatic parenchymal echogenicity, suggesting fatty infiltration.
CT A/P (from yesterday's ER visit)
IMPRESSION:
1). There is no evidence of acute pathology
2). Nonurgent findings include:
-Gastric bypass
-Cholelithiasis
-Decompressive laminectomies from L2 through L5
-Multilevel lumbar degenerative disc disease
Abdominal Pain
Hx Peptic Ulcer Disease
Hx gastric bypass surgery
-reassuring that CT A/P from earlier this AM (yesterday's ER visit) without acute pathology and normal lactate; will repeat lactate again now
-with recent cessation of protonix, NSAID use and pain similar to prior PUD concern for PUD as etiology of pain
-admit to tele
-NPO after MN
-GI consult
-continue IV protonix, BID
-pain control with dilaudid PRN
-IVF
Essential Hypertension
-hypertensive in ER, will continue [employer] Losartan, Amlodipine
-hold [employer] HCTZ
Hyperlipidemia
Chronic low back pain
Recent admission sacral insufficiency fracture
-PRN tylenol
-dilaudid PRN as above
DVT PPx SCD
FULL CODE
[2023-06-06 22:00] VITALS: BP 120/66
[2023-06-06] MEDS: PEPCID 20 MG IV (22:31)
[2023-06-06] MEDS: NSS (PRESERVATIVE FREE) 8 ML IV (22:31)
[2023-06-06 22:45] LABS: Lactic Acid 0.7 mmol/L (0.7-2.0)
[2023-06-06 23:00] VITALS: BP 125/73
[2023-06-06 23:10] VITALS: BP 137/75; BMI 30.4
--- NOTE | 2023-06-06 23:10 | PTCARENOTE ---
Pt arrived from ED via stretcher and ambulated to bed. Pt AAOx3, VSS, w/o complaints of pain. Pt is oriented to room resting comfortably w/ call galeas within reach.
[2023-06-06] MEDS: KCL 1010 MEQ IV (23:23)
[2023-06-07] VITALS (8 sets, daily range): BP systolic 118–169; BP diastolic 63–92; BMI 30.4
[2023-06-07] MEDS: DILAUDID 1 MG IV ×4 (03:08→20:50)
[2023-06-07 07:33] LABS: % Basophils 0.6 % (0-2); % Eosinophils 1.5 % (0-6); % Immature Granulocytes 0.3 % (0-0.5); % Lymphocytes 34.8 % (20.5-51.1); % Monocytes 8.7 % (1.7-9.3); % Neutrophils 54.1 % (42.2-75.2); Absolute Eosinophils 0.1 10^3/uL (0-0.7); Absolute Lymphocytes 2.5 10^3/uL (1.2-3.4); Absolute Monocytes 0.6 10^3/uL (0.1-0.6); Absolute Neutrophils 3.9 10^3/uL (1.4-6.5); Hematocrit 33.4 % (37.0-47.0); Hemoglobin 11.2 g/dL (12.0-16.0); Mean Corp Hgb Conc. 33.5 g/dL (33.0-37.0); Mean Corpuscular Hgb 32.1 pg (27.0-31.0); Mean Corpuscular Volume 95.7 fL (81.0-99.0); Mean Platelet Volume 9.1 fL (7.4-10.4); Nucleated Red Blood Cells % 0 %; Platelet Count 509 10^3/uL (130-400); Red Blood Cell Count 3.49 10^6/uL (4.20-5.40); Red Cell Dist. Width 12.7 % (11.5-14.5); White Blood Cell Count 7.3 10^3/uL (4.8-10.8)
[2023-06-07 07:46] LABS: Blood Urea Nitrogen 7 mg/dl (7-17); Calcium 9.4 mg/dl (8.4-10.2); Carbon Dioxide 26 mmol/L (22-30); Chloride 104 mmol/L (98-107); Estimated Creatinine Clearance 98 ml/min; Glucose 86 mg/dl (70-99); Magnesium 1.7 mg/dl (1.6-2.3); Potassium 3.6 mmol/L (3.5-5.1); Sodium 136 mmol/L (135-145); eGFR > 60.00
[2023-06-07] MEDS: PROTONIX IV 40 MG IV ×2 (08:16→19:44)
[2023-06-07] MEDS: NSS (PRESERVATIVE FREE) 10 ML IV ×2 (08:16→19:46)
[2023-06-07] MEDS: COZAAR 100 MG PO (08:20)
[2023-06-07] MEDS: PROZAC 60 MG PO (08:20)
--- NOTE | 2023-06-07 08:54 | CON.GI ---
Addendum entered and electronically signed by Ariane White DO 06/07/23 10:25:
I saw and examined the patient.
The ASSEMBL[employer] LINE WORKER or PA's note was reviewed and I agree with the note.
Comment: Briefly, Kaya Clifton is a 72-year-old female with significant history of gastric bypass surgery in the , peptic ulcer disease and recent endoscopy significant for gastrojejunal anastomosis ulceration and fistula between the gastric
pouch and excluded stomach which also had ulcer in the antrum admitted with worsening nausea, vomiting and abdominal pain. She admits to excessive NSAID use following right shoulder surgery about 2 weeks ago. Following her endoscopy in January
she was referred to Dr. Carrasquillo to discuss correction of gastric fistula, she has an appointment scheduled with him in a few weeks. Given excessive NSAID use over the last 2 weeks will plan to repeat endoscopy today to see if there are any new lesions
that are amenable to treatment or if current symptoms are due to known ulcerations and gastric fistula. Hemoglobin 11.2, from 12.7, BUN 7. Denies any melena. PPI BID. Further recommendations following endoscopy today.
Original Note:
Consultation
-
Date/Time Consultation Requested: 06/06/23 2313
Date/Time Consultation Performed: 06/07/23 0830
Requesting Provider: Dr. Bates
Performing Provider: Dr. White/GIANFRANCO Jimenez
Reason for Consultation: epigastric pain
Medical History
Chief Complaint / HPI
Chief Complaint: abdominal pain
History of Present Illness:
72-year-old female with a past medical history significant for GERD, hypertension, gastric bypass surgery in the , PUD, DDD s/p right shoulder surgery 2 weeks ago, hyperlipidemia, who presented to the emergency room x 2 with complaints of N,
V and epigastric pain. Asked to evaluate for the same. The patient was seen in October 2022 for abdominal pain and had EGD on 10/21/2022 showing small hiatal hernia. Emily-en-Y gastrojejunostomy with gastrojejunal anastomosis characterized by
ulceration. Fistula between the surgical gastric pouch and excluded stomach allowing to examine the excluded stomach which had a superficial ulcer in the antrum. Normal examined duodenum normal examined jejunum. The patient had a repeat EGD in
January 2027 that showed a 3 cm hiatal hernia. Emily-en-Y gastrojejunostomy with gastrojejunal anastomosis characterized by healthy-appearing mucosa and no signs stomal ulceration. 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 Normal
examined duodenum. She was to not use any NSAIDs given her ulceration history. The patient did run out of her pantoprazole approximately 2 to 3 weeks ago and has been without. However she states that she would continue aspirin 81 mg as well as
Motrin for orthopedic procedures. The patient recently had right shoulder surgery 2 weeks ago and was using Motrin 1 to 2 tablets 3 times a day. She states she never exceeded 6 tablets daily. She used this in addition to 1 oxycodone that she was
prescribed daily. She states that she was using this until she developed abdominal pain last Monday that she describes as epigastric in nature, dull, radiates through the back associated with vomiting that was food or bilious, nothing made this
better, nothing made this worse. She did try taking Pepto-Bismol without any relief on Monday, and Monday. She also has a history of constipation and uses senna and Colace and was having bowel movements every day. She states that she
stopped taking Motrin on Monday. She states that she had no further vomiting on Monday but that the pain came back with vomiting on Monday and she proceeded to the emergency room where she was evaluated given PPI, had labs and a CT performed. She
states that initially she felt a little better but then came back to the emergency room quickly with recurrent vomiting and abdominal discomfort. She did have a black soft bowel movement yesterday. She states that this was solid in nature without
any foul odor. Her hemoglobin has been stable. 06/05/2023 WBC was 12.6 it has gone down to 10.9 and now 7.3. Hemoglobin on was 12.6 followed by 12.7 and now 11.2. Platelet count is 509. Sodium is 136, potassium 3.6, chloride 104, CO2 26,
BUN of 7 (this was never elevated and max was 10) creatinine 0.5, lactic acid 0.7, magnesium 1.7, total bilirubin 0.6, AST 30, ALT 21, alk phos 211. Patient had CT of the abdomen and pelvis with IV contrast that showed no evidence of acute
pathology., Gastric bypass, cholelithiasis, decompressive laminectomies L2-L5 and multilevel degenerative disc disease. Ultrasound the abdomen was limited. There was a large amount of bowel gas. Limited visualization of the gallbladder. A small
gallstone identified. No gallbladder wall thickening. No bile duct dilatation. Increased hepatic parenchymal echogenicity suggesting fatty infiltration.
Past Medical History
Past Medical History: GERD, HTN, Hypercholesterolemia, Psychiatric (depression) and Other (Obesity, arthritis, chronic back pain due to DDD, left sacral fracture)
Past Surgical History: Orthopedic (lumbar laminectomy, spinal injection, left knee replacement, right knee replacement right shoulder surgery, breasat reduction) and Other (Gastric bypass surgery , sinus surgery)
Social History
Tobacco: Smoker (1 a month)
Alcohol: Occasional (stopped a cupleweek ago, wa drinking 2-3 glasses of wine a day.)
Drug: None
Personal:
Living: With Family
Family History
Family History: Other (No fam hx of GI malignancy or IBD)
Allergies / Home Medications
Allergy/AdvReac Type Severity Reaction Status Date / Time
No Known Allergies Allergy Verified 06/06/23 22:26
�Medication �Instructions �Recorded
atorvastatin 80 mg tablet 80 mg PO HS High cholesterol #0 10/22/22
tabs
multivitamin 1 tab PO DAILY Supplement #0 tabs 10/22/22
chromium picolinate 200 mcg tablet 200 mcg PO DAILY 11/23/22
collagen,hydrolysate 500 mg-biotin 1 cap PO DAILY 11/23/22
800 mcg-ascorbic acid 50 mg
capsule (Collagen 1500 Plus C)
magnesium 200 mg tablet 400 mg PO DAILY 11/23/22
pantoprazole 40 mg tablet,delayed 40 mg PO DAILY Gastrointestinal 11/23/22
release issue
cholecalciferol (vitamin D3) 25 25 mcg PO DAILY 11/28/22
mcg (1,000 unit) tablet
amlodipine 10 mg tablet 10 mg PO DAILY Blood pressure #0 12/19/22
tabs
hydrochlorothiazide 25 mg tablet 25 mg PO DAILY Blood pressure #0 12/19/22
tabs
losartan 100 mg tablet 100 mg PO DAILY Blood pressure #0 12/19/22
tabs
[place] 3-Turmeric 2 tab PO DAILY 05/08/23
acetaminophen 500 mg tablet 1,000 mg PO Q6H PRN mild pain 05/08/23
(Tylenol Extra Strength)
ashwagandha root extract 300 mg 300 mg PO DAILY 05/08/23
capsule
aspirin 81 mg tablet,delayed 81 mg PO HS 05/08/23
release
coQ10 (ubiquinol) 200 mg capsule 200 mg PO DAILY 05/08/23
docusate sodium 100 mg capsule 100 mg PO HS 05/08/23
(Colace)
garlic 1 cap PO DAILY 05/08/23
glucosamine sulf dipot 1 cap PO DAILY 05/08/23
chlr,msm,chond 550 mg-C 30 mg-tosin
1 mg capsule (Glucosamine
Chondroitin)
green tea leaf extract 1 cap PO DAILY 05/08/23
sennosides 8.6 mg tablet (senna) 17.2 mg PO HS 05/08/23
turmeric 400 mg capsule 400 mg PO DAILY 05/08/23
Dha W/ Vitamin D 1 tab PO DAILY 06/06/23
fluoxetine 20 mg capsule 60 mg PO DAILY 06/06/23
oxycodone-acetaminophen 5 mg-325 1 tab PO Q6HPRN PRN moderate pain 06/06/23
mg tablet (Percocet)
Review of Systems
-
All other systems: A 12 pt ROS was Negative except as stated above in HPI
Vital Signs
Temp Pulse Resp BP Pulse Ox
98.0 F 78 16 118/63 94
06/07/23 07:30 06/07/23 07:30 06/07/23 07:30 06/07/23 07:30 06/07/23 07:30
Physical Exam
Exam
General: No Apparent Distress
HEENT: Normocephalic and Anicteric
Respiratory: Clear
Cardiac: Regular Rhythm
GI: Soft, Non Distended, Normal Bowel Sounds and Tender (epigastric)
Musculoskeletal: No Edema
Skin: Warm and Dry
Neuro: AO x 3
Psych: Calm
Results
WBC 7.3 10^3/uL (4.8-10.8) 06/07/23 06:48
Hgb 11.2 g/dL (12.0-16.0) L 06/07/23 06:48
Hct 33.4 % (37.0-47.0) L 06/07/23 06:48
MCV 95.7 fL (81.0-99.0) 06/07/23 06:48
Plt Count 509 10^3/uL (130-400) H D 06/07/23 06:48
Absolute Neuts (auto) 3.9 10^3/uL (1.4-6.5) 06/07/23 06:48
Sodium 136 mmol/L (135-145) 06/07/23 06:48
Potassium 3.6 mmol/L (3.5-5.1) 06/07/23 06:48
Chloride 104 mmol/L (98-107) 06/07/23 06:48
Carbon Dioxide 26 mmol/L (22-30) 06/07/23 06:48
BUN 7 mg/dl (7-17) 06/07/23 06:48
Creatinine 0.5 mg/dL (0.6-1.0) L 06/07/23 06:48
Calcium 9.4 mg/dl (8.4-10.2) 06/07/23 06:48
Total Bilirubin 0.6 mg/dl (0.2-1.3) 06/06/23 21:05
AST 30 U/L (14-36) 06/06/23 21:05
ALT 21 U/L (0-35) 06/06/23 21:05
Alkaline Phosphatase 211 U/L (38-126) H 06/06/23 21:05
Diagnostic Image Results:
US Abd 06/06/23:
Examination is limited. The patient is reportedly not fasting. There is a large amount of bowel gas.
Limited visibility of the gallbladder There is a small gallstone identified within the gallbladder lumen. No gallbladder wall thickening. Reportedly, the pain was given pain medication.
No bile duct dilatation; the common bile duct measures 3.4 mm.
Increased hepatic parenchymal echogenicity, suggesting fatty infiltration.
CT Abd/Pelvis with IV contrast 06/06/23:
1). There is no evidence of acute pathology
2). Nonurgent findings include:
-Gastric bypass
-Cholelithiasis
-Decompressive laminectomies from L2 through L5
-Multilevel lumbar degenerative disc disease
Prior GI Procedures:
EGD: 02/01/2023 ([facility]) - 3 cm hiatal hernia.
- Emily-en-Y gastrojejunostomy with gastrojejunal
anastomosis characterized by healthy appearing mucosa
and no stomal ulceration.
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
remnant.
- Normal examined duodenum.
- No specimens collected.
EGD 10/21/2022 ([facility]) - Small hiatal hernia.
- Emily-en-Y gastrojejunostomy with gastrojejunal
anastomosis characterized by ulceration. Biopsied the
gastric pouch for h.pylori.
- Fistula between the surgical gastric pouch and
excluded stomach allowing me to examine the excluded
stomach which had a superficial ulcer in the antrum.
- Normal examined duodenum.
- Normal examined jejunum.
Colonoscopy: Per pt done about 5 years ago with hx polyps (report not available to me)
Assessment / Plan
-
72-year-old female with a past medical history significant for GERD, hypertension, gastric bypass surgery in the , PUD, DDD s/p right shoulder surgery 2 weeks ago, hyperlipidemia, who presented to the emergency room x 2 with complaints of N,
V and epigastric pain. Asked to evaluate for the same. The patient was seen in October 2022 for abdominal pain and had EGD on 10/21/2022 showing small hiatal hernia. Emily-en-Y gastrojejunostomy with gastrojejunal anastomosis characterized by
ulceration. Fistula between the surgical gastric pouch and excluded stomach allowing to examine the excluded stomach which had a superficial ulcer in the antrum. Normal examined duodenum normal examined jejunum. The patient had a repeat EGD in
January 2027 that showed a 3 cm hiatal hernia. Emily-en-Y gastrojejunostomy with gastrojejunal anastomosis characterized by healthy-appearing mucosa and no signs stomal ulceration. 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 Normal
examined duodenum. She was to not use any NSAIDs given her ulceration history. The patient did run out of her pantoprazole approximately 2 to 3 weeks ago and has been without. However she states that she would continue aspirin 81 mg as well as
Motrin for orthopedic procedures. The patient recently had right shoulder surgery 2 weeks ago and was using Motrin 1 to 2 tablets 3 times a day. Her hemoglobin has been stable. 06/05/2023 WBC was 12.6 it has gone down to 10.9 and now 7.3.
Hemoglobin on was 12.6 followed by 12.7 and now 11.2. Platelet count is 509. Sodium is 136, potassium 3.6, chloride 104, CO2 26, BUN of 7 (this was never elevated and max was 10) creatinine 0.5, lactic acid 0.7, magnesium 1.7, total
bilirubin 0.6, AST 30, ALT 21, alk phos 211. Patient had CT of the abdomen and pelvis with IV contrast that showed no evidence of acute pathology., Gastric bypass, cholelithiasis, decompressive laminectomies L2-L5 and multilevel degenerative disc
disease. Ultrasound the abdomen was limited. There was a large amount of bowel gas. Limited visualization of the gallbladder. A small gallstone identified. No gallbladder wall thickening. No bile duct dilatation. Increased hepatic parenchymal
echogenicity suggesting fatty infiltration. The patient saw Dr. Carrasquillo in April 2023 for evaluation for possible endoscopic repair of gastric fistula. For weight loss. This was essentially planned and a two-step procedure. Endoscopic repair and
closure of gastric fistula and reduction of pouch. Patient had an EGD planned with Dr. Carrasquillo on with a follow-up office with Dr. Carrasquillo on 07/31/23.
Impression:
Epigastric pain
N/V
History of Emily-en-Y gastrojejunostomy with history of gastric fistula into the gastric remnant with ulceration and antrum 10/21/2022. Also with gastrojejunal anastomosis ulceration 10/2022. The patient had repeat EGD in 01/2023 that showed healing
of ulcers.
right shoulder surgery with NSAID use
Plan:
-NPO except essential po meds
-Continue Pantoprazole 40 mg IV BID
-Plan on EGD to evaluate for anastomotic ulcer and ulcer in excluded remnant
-After will start bowel regimen, patient currently using senna and colace.
Data Reviewed
-
CT Scan: Report Reviewed by me
Ultrasound: Report Reviewed by me
Old Records: Reviewed
-
-
Thank you for consultation and allowing me to participate in the patient's care. Please call the conciliation court judge GI physician during the after hours with any questions or concerns.
[2023-06-07] MEDS: NORVASC 10 MG PO (09:35)
--- NOTE | 2023-06-07 10:55 | W.PN.HOSP.TC ---
Today's Communication/Plan
-
see bold
Assessment / Plan
Assessment / Plan
Gen: NAD, AAOx3.
Eyes: EOMI, PERRLA, no scleral icterus.
Neck: supple.
CV: RRR, +S1/S2, no m/r/g.
Resp: CTAB, no rales, wheezes, or rhonchi.
Abd: +BS, soft, NT, ND
Skin: No rashes.
Neuro: CN 2-12 intact, non-focal.
Psych: Normal mood and affect.
CT A/P 06/06/23: No evidence of acute pathology.
EGD: White nummular lesions were noted in the middle third of the esophagus.
Biopsies were taken with a cold forceps for histology.
A 3 cm hiatal hernia was present.
The exam of the esophagus was otherwise normal.
Evidence of a gastric bypass was found. A gastric pouch was found. There
was evidence of a clean based ulcer, measuring approximately 8 mm at the
gastrojejunal anastomosis. The jejunojejunal anastomosis was
characterized by healthy appearing mucosa. The excluded stomach was
examined and was healthy in appearance. There was evidence of a gastric
fistula present in the superior gastric body, measuring approximately 1
cm, which led to the excluded remnant stomach.
The examined duodenum was normal.
The exam was otherwise without abnormality.
Abdominal Pain
-h/o PUD, gastric bypass surgery
-recent cessation of protonix, NSAID use and pain similar to prior PUD, concern for PUD as etiology of pain
-EGD notable for white nummular lesions were noted in the middle third of the esophagus,clean based ulcer, measuring approximately 8 mm at the gastrojejunal anastomosis.
-GI following
-continue PPI BID
-pain control with dilaudid PRN
-diet advanced to regular
Other problems:
Essential Hypertension: cont Losartan/Amlodipine
Hyperlipidemia: cont statin
Chronic low back pain with recent admission sacral insufficiency fracture
Obesity due to excess calories: Encourage weight loss, affects all aspects of care
FULL/SCD
Anticipated Discharge: Within 24 hours
Subjective/Interval History
-
Date of Service: June 07, 2023
Patient complains of epigastric pain.
Objective Data
-
Labs:
Laboratory Results
06/07/23
06:48
WBC 7.3
Hgb 11.2 L
Hct 33.4 L
Plt Count 509 H D
Sodium 136
Potassium 3.6
Chloride 104
Carbon Dioxide 26
BUN 7
Creatinine 0.5 L
Glucose 86
Calcium 9.4
Vital Signs:
Vital Signs
Temp Pulse Resp BP Pulse Ox
98.0 F 78 16 118/63 95
06/07/23 07:30 06/07/23 07:30 06/07/23 07:30 06/07/23 07:30 06/07/23 08:10
I&O
06/06/23 06/07/23 06/08/23
06:59 06:59 06:59
Intake Total 100 / 100
Balance 100 / 100
--- NOTE | 2023-06-07 12:30 | CM ---
CM met with pt bedside
Pt resides with her spouse in a 2[address] with 1STE
Pt is independent with her ADLs
Has a [facility] and SPC for use as needed
[facility] was arranged on last dc but pt declined opening to service as she felt she didn't need it
PCP- Violet Bell
Rx- [facility]
CM will be available for coordinate dc planning
Discharge Disposition- home, watch for VN needs
[2023-06-07] MEDS: CARAFATE SUSPENSION 1 GM PO ×3 (13:04→23:02)
[2023-06-07] MEDS: KCL 1010 MEQ IV ×2 (13:35→23:03)
--- NOTE | 2023-06-07 17:55 | PTCARENOTE ---
Received patient this am AAox3. Pt NPO with IVF infusing without difficulty. Pt off unit for Endoscopy. Pt returned from GI and complained of 8/10 abdominal pain. Pt medicated with IV Dilaudid with moderate relief. Cindy Petty and Dr. Saxena made
aware. Pt started on Carafate. Regular diet started , pt tolerated liquids an soup. Made patient comfortable. Cont to assess patient status.
[2023-06-07] MEDS: COLACE 100 MG PO (22:03)
[2023-06-07] MEDS: LIPITOR 80 MG PO (22:03)
[2023-06-07] MEDS: ASPIR LOW (ENTERIC COATED) 81 MG PO (22:03)
[2023-06-08 03:14] VITALS: BP 126/74
[2023-06-08] MEDS: CARAFATE SUSPENSION 1 GM PO ×2 (05:48→10:27)
[2023-06-08 08:14] VITALS: BP 141/77
--- NOTE | 2023-06-08 08:30 | W.PN.GI.CBS2 ---
Today's Communication / Plan
-
Tolerating diet. Okay for discharge today, PPI BID x 2 months. Carafate 1g QID, prn. Outpatient follow-up with GI scheduled.
Assessment / Plan
-
72-year-old female with a past medical history significant for GERD, hypertension, gastric bypass surgery in the , PUD, DDD s/p right shoulder surgery 2 weeks ago, hyperlipidemia, who presented to the emergency room x 2 with complaints of N,
V and epigastric pain. Asked to evaluate for the same. The patient was seen in October 2022 for abdominal pain and had EGD on 10/21/2022 showing small hiatal hernia. Emily-en-Y gastrojejunostomy with gastrojejunal anastomosis characterized by
ulceration. Fistula between the surgical gastric pouch and excluded stomach allowing to examine the excluded stomach which had a superficial ulcer in the antrum. Normal examined duodenum normal examined jejunum. The patient had a repeat EGD in
January 2027 that showed a 3 cm hiatal hernia. Emily-en-Y gastrojejunostomy with gastrojejunal anastomosis characterized by healthy-appearing mucosa and no signs stomal ulceration. 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 Normal
examined duodenum. She was to not use any NSAIDs given her ulceration history. The patient did run out of her pantoprazole approximately 2 to 3 weeks ago and has been without. However she states that she would continue aspirin 81 mg as well as
Motrin for orthopedic procedures. The patient recently had right shoulder surgery 2 weeks ago and was using Motrin 1 to 2 tablets 3 times a day. Her hemoglobin has been stable. 06/05/2023 WBC was 12.6 it has gone down to 10.9 and now 7.3.
Hemoglobin on was 12.6 followed by 12.7 and now 11.2. Platelet count is 509. Sodium is 136, potassium 3.6, chloride 104, CO2 26, BUN of 7 (this was never elevated and max was 10) creatinine 0.5, lactic acid 0.7, magnesium 1.7, total
bilirubin 0.6, AST 30, ALT 21, alk phos 211. Patient had CT of the abdomen and pelvis with IV contrast that showed no evidence of acute pathology., Gastric bypass, cholelithiasis, decompressive laminectomies L2-L5 and multilevel degenerative disc
disease. Ultrasound the abdomen was limited. There was a large amount of bowel gas. Limited visualization of the gallbladder. A small gallstone identified. No gallbladder wall thickening. No bile duct dilatation. Increased hepatic parenchymal
echogenicity suggesting fatty infiltration. The patient saw Dr. Carrasquillo in April 2023 for evaluation for possible endoscopic repair of gastric fistula. For weight loss. This was essentially planned and a two-step procedure. Endoscopic repair and
closure of gastric fistula and reduction of pouch.
She is now s/p EGD with findings of clean-based gastrojejunal marginal ulcer in setting of excessive NSAID use. She has known gastric fistula, with scheduled follow-up wt Dr. Carrasquillo for both EGD and office follow-up. Advise increase pantoprazole to
40mg BID x2 months and Carafate 1g QID prn x1 week. I did caution her that this can cause constipation. She is aware to stop all NSAID use, using Tylenol, prn for pain.
EGD scheduled with Dr. Carrasquillo 06/28/23
Office follow-up scheduled with Dr. Carrasquillo on 07/30 @ 11:45 AM
Okay for discharge today from a GI perspective. GI will sign off, please call with questions.
Subjective
Subjective
Date of Service: June 08, 2023
Patient seen in follow-up today, reports feeling much better. Tolerating her breakfast without issue. She feels carafate helped her pain significantly. Vitals and labs are stable. She would like to go home today.
Objective
Data Reviewed
Laboratory Data:
Laboratory Results
06/07/23 06:48
06/07/23 06:48
Laboratory Results
Magnesium 1.7 mg/dl (1.6-2.3) 06/07/23 06:48
Total Bilirubin 0.6 mg/dl (0.2-1.3) 06/06/23 21:05
AST 30 U/L (14-36) 06/06/23 21:05
ALT 21 U/L (0-35) 06/06/23 21:05
Alkaline Phosphatase 211 U/L (38-126) H 06/06/23 21:05
Vital Signs and I&O:
Vital Signs
Temp Pulse Resp BP Pulse Ox
98.4 F 75 18 141/77 95
06/08/23 08:14 06/08/23 08:14 06/08/23 08:14 06/08/23 08:14 06/08/23 08:14
I&O
06/07/23 06/08/23 06/09/23
06:59 06:59 06:59
Intake Total 100 / 100 1859
Balance 100 / 100 1859
Physical Exam
Physical Exam
GENERAL: In no acute distress, appears comfortable
HEENT: no scleral icterus, mucous membranes moist, OP clear
RESP: Nonlabored respirations, clear to ausculation, b/l
CV: RRR, S1/S2
ABDOMEN: +BS; soft, non-tender and non-distended; no rebound or guarding
EXT: No LE edema, b/l
SKIN: Dry, warm
NEURO: AAOx3
[2023-06-08] MEDS: COZAAR 100 MG PO (09:26)
[2023-06-08] MEDS: NORVASC 10 MG PO (09:27)
[2023-06-08] MEDS: PROZAC 60 MG PO (09:27)
[2023-06-08] MEDS: NSS (PRESERVATIVE FREE) 10 ML IV (09:28)
[2023-06-08] MEDS: PROTONIX IV 40 MG IV (09:28)
--- NOTE | 2023-06-08 09:54 | W.PN.HOSP.TC ---
Today's Communication/Plan
-
d/c
Assessment / Plan
Assessment / Plan
Gen: NAD, AAOx3.
Eyes: EOMI, PERRLA, no scleral icterus.
Neck: supple.
CV: remains RRR, +S1/S2, no m/r/g.
Resp: remains CTAB, no rales, wheezes, or rhonchi.
Abd: remains +BS, soft, NT, ND
Skin: No rashes.
Neuro: CN 2-12 intact, non-focal.
Psych: Normal mood and affect.
CT A/P 06/06/23: No evidence of acute pathology.
EGD: White nummular lesions were noted in the middle third of the esophagus.
Biopsies were taken with a cold forceps for histology.
A 3 cm hiatal hernia was present.
The exam of the esophagus was otherwise normal.
Evidence of a gastric bypass was found. A gastric pouch was found. There
was evidence of a clean based ulcer, measuring approximately 8 mm at the
gastrojejunal anastomosis. The jejunojejunal anastomosis was
characterized by healthy appearing mucosa. The excluded stomach was
examined and was healthy in appearance. There was evidence of a gastric
fistula present in the superior gastric body, measuring approximately 1
cm, which led to the excluded remnant stomach.
The examined duodenum was normal.
The exam was otherwise without abnormality.
Abdominal Pain
-h/o PUD, gastric bypass surgery
-recent cessation of protonix, NSAID use and pain similar to prior PUD, concern for PUD as etiology of pain
-EGD notable for white nummular lesions were noted in the middle third of the esophagus,clean based ulcer, measuring approximately 8 mm at the gastrojejunal anastomosis.
-GI following
-continue PPI BID, carafate PRN
-pain control with dilaudid PRN
-diet advanced to regular
Other problems:
Moderate protein calorie malnutrition
Essential Hypertension: cont Losartan/Amlodipine
Hyperlipidemia: cont statin
Chronic low back pain with recent admission sacral insufficiency fracture
Obesity due to excess calories: Encourage weight loss, affects all aspects of care
FULL/SCD
Medically cleared for discharge.
Total time spent on d/c = 31 min. This included today's physical exam, progress note, review of laboratory and diagnostic data, preparation of discharge documents and prescriptions, and discussions about the pt's hospital course and discharge plan
with the patient and other medical assistant float involved in the patient's care.
Anticipated Discharge: Today
Subjective/Interval History
-
Date of Service: June 08, 2023
Denies CP/SOB/abd pain.
Objective Data
-
Vital Signs:
Vital Signs
Temp Pulse Resp BP Pulse Ox
98.4 F 75 18 141/77 95
06/08/23 08:14 06/08/23 08:14 06/08/23 08:14 06/08/23 08:14 06/08/23 08:14
I&O
06/07/23 06/08/23 06/09/23
06:59 06:59 06:59
Intake Total 100 / 100 1859
Balance 100 / 100 1859
--- NOTE | 2023-06-08 09:54 | PN.CDI ---
CDI
- -
CDI:
Physician Documentation Request
Admit Date: 06/06/23 22:42
Dear Doctor Hemanth,
Patient admitted for abdominal pain.
06/06 Senior Architect/Design Manager Assessment: 'With weight loss of > 5% in 1 month and < 75% estimated needs in 1 month, pt meets AND/ASPEN criteria for moderate protein calorie malnutrition of chronic illness.'
Based on the information, which of the following most accurately represents the patient's nutritional status?
Moderate protein calorie malnutrition
Other
Logan Criteria ([facility] Hospitalist 2017)
2 or more criteria must be present for either
non severe or severe malnutrition
Note that the criteria differs related to the
presence of an acute or chronic illness
Acute Illness Chronic Illness
Energy Intake Non Severe: <75% for >7 days Non Severe: <75% for >1 month
Severe: <50% for >5 days Severe: <75% for >1 month
Weight Loss Non Severe: 1-2% over 1 week Non Severe: 5% over 1 month
5% over 1 month 7.5% over 3 months
7.5% over 3 months 10% over 6 months
1 year N/A 20% over 1 year
Severe: >2% over 1 week Severe: >5% over 1 month
>5% over 1 month >7.5% over 3 months
>7.5% over 3 months >10% over 6 months
1 year N/A >20% over 1 year
Body Fat Non Severe: Mild Decrease Non Severe: Mild Loss
Severe: Moderate Decrease Severe: Severe Loss
Muscle Mass Non Severe: Mild Decrease Non Severe: Mild Loss
Severe: Moderate Decrease Severe: Severe Loss
Fluid Accumulation Non Severe: Mild Accumulation Non Severe: Mild Accumulation
Severe: Moderate to severe Severe: Moderate to severe
accumulation accumulation
Reduced Clam Shucker Strength Non Severe: N/A Non Severe: N/A
Severe: Measurably reduced Severe: Measurably reduced
Use of terms such as suspected, likely, concern for, or probable (associated with a specific diagnosis that is being evaluated, monitored, or treated as if it exists) are acceptable and can be coded in the inpatient setting, when documented at the
time of discharge.
Thank you,
Ivy Tony RN, BSN
CDI Specialist
Available via [place] text
Please use your independent medical judgment in providing your response.
[2023-06-08] MEDS: DILAUDID 1 MG IV (10:25)
--- NOTE | 2023-06-08 10:29 | PTCARENOTE ---
Patient with shaking of arms, hands and head - tremulous. States she has pain that she rates a 10/10 in the left lower quadrant. Patient also states that she feels nausea. Patient ate some oatmeal about one hour ago but states that pain 'comes on
all of a sudden' without warning. Given 1mg of dilaudid as ordered for pain. Will monitor.
[2023-06-08 11:57] VITALS: BP 146/71
--- NOTE | 2023-06-08 14:11 | CM ---
met with patient at bedside.she is c/o abd pain and given iv dilaudid. patient will dc home with no needs.she signed imm letter.
--- NOTE | 2023-06-08 14:41 | PTCARENOTE ---
Peripheral IV removed. Tele removed. Discharge instructions reviewed with patient and . Both deny questions at this time. Patient left via wheelchair with staff escort.
--- NOTE | 2023-06-08 15:14 | W.DCSUMMARY ---
Discharge Summary
Discharge Data
Date of Admission: 06/06/23
Date of Discharge: 06/08/23
-
Pending Results: No
Hospital Course
Primary diagnoses:
Abdominal pain likely due to gastrojejunal anastomosis ulcer
Secondary diagnoses:
Moderate protein calorie malnutrition
Essential Hypertension: cont Losartan/Amlodipine
Hyperlipidemia: cont statin
Chronic low back pain with recent admission sacral insufficiency fracture
Obesity due to excess calories
Consultants:
Gastroenterology
Imaging/procedures:
CT A/P 06/06/23: No evidence of acute pathology.
EGD: White nummular lesions were noted in the middle third of the esophagus.
Biopsies were taken with a cold forceps for histology.
A 3 cm hiatal hernia was present.
The exam of the esophagus was otherwise normal.
Evidence of a gastric bypass was found. A gastric pouch was found. There
was evidence of a clean based ulcer, measuring approximately 8 mm at the
gastrojejunal anastomosis. The jejunojejunal anastomosis was
characterized by healthy appearing mucosa. The excluded stomach was
examined and was healthy in appearance. There was evidence of a gastric
fistula present in the superior gastric body, measuring approximately 1
cm, which led to the excluded remnant stomach.
The examined duodenum was normal.
The exam was otherwise without abnormality.
Hospital course: 72-year-old female who presented with a chief complaint of abdominal pain as outlined in the H&P done on admission. The patient had a history of peptic ulcer disease as well as gastric bypass surgery. She had recently stopped her
Protonix. She also had NSAID use and developed pain similar to prior exacerbations of her peptic ulcer disease. The patient was placed on Protonix 40 mg IV twice daily. She was seen by gastroenterology. She underwent EGD as above which was
notable for white nummular lesions were noted in the middle third of the esophagus,clean based ulcer, measuring approximately 8 mm at the gastrojejunal anastomosis. It was recommended the patient continue on Protonix twice daily and Carafate. Her
diet was advanced to a regular diet and she was discharged in medically stable condition. Of note, pathology from esophagus biopsy showed minute fragment of squamous epithelium with mild reactive change. No significant acute or chronic
inflammation. No fungal organisms identified.
Discharge Plan
-
Patient Disposition: Home (Routine Discharge)
Discharge Diagnosis/Procedures: Abdominal pain likely due to gastrojejunal anastomosis ulcer
Condition: Good
Diet: Low Cholesterol
Activity: As tolerated
Driving Restrictions: As prior to admission
Referrals:
Violet Bell CRNP [Family Provider] - in less than 1 week
Prescriptions:
New
sucralfate 100 mg/mL Suspension
1 gm PO Q6 Qty: 120 0RF
Continued
multivitamin Tablet
1 tab PO DAILY Qty: 0 0RF
atorvastatin 80 mg Tablet
80 mg PO HS Qty: 0 0RF
chromium picolinate 200 mcg Tablet
200 mcg PO DAILY
magnesium 200 mg Tablet
400 mg PO DAILY
Collagen 1500 Plus C 500 mg-800 mcg- 50 mg Capsule
1 cap PO DAILY
cholecalciferol (vitamin D3) 25 mcg (1,000 unit) Tablet
25 mcg PO DAILY
amlodipine 10 mg Tablet
10 mg PO DAILY Qty: 0 0RF
hydrochlorothiazide 25 mg Tablet
25 mg PO DAILY Qty: 0 0RF
losartan 100 mg Tablet
100 mg PO DAILY Qty: 0 0RF
sennosides [senna] 8.6 mg Tablet
17.2 mg PO HS
aspirin 81 mg Tablet,Delayed Release (Dr/Ec)
81 mg PO HS
acetaminophen [Tylenol Extra Strength] 500 mg Tablet
1,000 mg PO Q6H PRN (Reason: mild pain)
docusate sodium [Colace] 100 mg Capsule
100 mg PO HS
green tea leaf extract Capsule
1 cap PO DAILY
coQ10 (ubiquinol) 200 mg Capsule
200 mg PO DAILY
ashwagandha root extract 300 mg Capsule
300 mg PO DAILY
turmeric 400 mg Capsule
400 mg PO DAILY
Glucosamine Chondroitin 550-30-1 mg Capsule
1 cap PO DAILY
[place] 3-Turmeric
2 tab PO DAILY
garlic
1 cap PO DAILY
fluoxetine 20 mg capsule
60 mg PO DAILY
Dha W/ Vitamin D
1 tab PO DAILY
oxycodone-acetaminophen [Percocet] 5-325 mg tablet
1 tab PO Q6HPRN PRN (Reason: moderate pain)
Patient Comments:
06/06/2023: last filled 05/24/23, 40 tabs for 10 days from [facility]
Changed
pantoprazole 40 mg tablet,delayed release (DR/EC)
40 mg PO BID Qty: 60 0RF
Discharge Orders:
Discharge Patient (As Directed); Ordered 06/08/23
Ordered By: Teo Saxena
Discharge Date and Time
Discharge Date/Time: 06/08/23 14:45
Print Language: ALB[place]
== END 2023-06-08 14:45 | disposition home or self-care (01) | DRG 384 ==
LOC: 4 EAST ACU 22:42
PROVIDERS: ADMITTING PHYSICIAN Student in an Organized Health Care Education/Training Program; ATTENDING PHYSICIAN Internal Medicine; EMERGENCY PHYSICIAN Student in an Organized Health Care Education/Training Program; FAMILY PHYSICIAN Nurse Practitioner Adult Health; OTHER PHYSICIAN Internal Medicine
PROC: 0DB48ZX Excision of Esophagogastric Junction, Via Natural or Artificial Opening Endoscopic, Diagnostic (ICD-10-PCS; 2023-06-07)
DX: K25.9 Gastric ulcer, unspecified as acute or chronic, without hemorrhage or perforation (principal); E44.0 Moderate protein-calorie malnutrition; K44.9 Diaphragmatic hernia without obstruction or gangrene; F17.210 Nicotine dependence, cigarettes, uncomplicated; I10 Essential (primary) hypertension; E78.00 Pure hypercholesterolemia, unspecified; E66.09 Other obesity due to excess calories; Z68.30 Body mass index [BMI] 30.0-30.9, adult
CPT/HCPCS: 88305; 74177; 76705; 80048; 80053; 83605; 83690; 83735; 85025; 87040; 96361; 96374; 96375; 96376; 99285; Q9967

== ENCOUNTER 2023-06-14 09:10 | Inpatient (IN) | payer MEDICARE, BC, SELFPAY ==
[2023-06-09] VITALS (8 sets, daily range): BP systolic 147–164; BP diastolic 78–93; BMI 31.3; BMI 30.6
--- NOTE | 2023-06-09 14:31 | ED.GENMED ---
History of Present Illness
General
Chief Complaint: Abdominal Pain
Source: patient
Exam Limitations: none
Time Seen by Provider: 06/09/23 14:21
Nursing documentation reviewed up to this point in time: agreed with
Travel History
Have you had any contact with someone who has COVID-19?: No
Do you have any symptoms of coronavirus? Fever > 100 degrees, chills, cough, shortness of breath, sore throat, loss of taste or smell, muscle aches, or headache?: No
History of Present Illness
History of Present Illness:
72-year-old female with a past medical history of hypertension, hyperlipidemia, GERD/PUD who presents to the emergency room with her for evaluation of abdominal pain. Patient was notably admitted to this hospital 06/06/2023 until
06/08/2023ischarged yesterday. She was admitted for abdominal pain and was found to have significant peptic ulcer disease on upper endoscopy. She was treated with PPI and Carafate and she says symptoms improved by discharge. She had been doing
well until earlier this afternoon around 1 PM when she had an acute return of her symptoms that she says her pain has been quite severe since. She reports pain in the upper abdomen but radiates diffusely. No clear triggering or relieving factors
noted. Associated with nausea but no vomiting. No change in her bowels over the past 24 hours. No fevers or chills. She denies any trauma. Denies any chest pain or shortness of breath. No other complaints today. Compliant with all medications.
Past History
Past History
ED Past Medical History: GERD, HTN, Hypercholesterolemia and Psychiatric
ED Past Surgical History: Orthopedic and Other (Gastric bypass surgery )
Social History
Tobacco: Former smoker
Alcohol: Occasional
Drug: None
Personal:
Living: with family
Review of Systems
Review of Systems
All Other Systems: ROS reviewed and negative except as documented in HPI and ROS
Constitutional: Denies fever or chills
EENT: Denies sore throat or runny nose
Respiratory: Denies cough or trouble breathing
Cardiac: Denies chest pain
ABD/GI: Reports abdominal pain and nausea; Denies vomiting, diarrhea or constipated
: Denies dysuria, frequency or flank pain
Musculoskeletal: Denies neck pain or back pain
Neurological: Denies dizzy, headache, weakness or numbness
Phy Exam
Physical Exam
Physical Exam:
General: Awake, alert, oriented x3; appears quite uncomfortable
Head: Normocephalic, atraumatic
Eyes: Conjunctiva normal, sclera anicteric
Throat: Airway intact, handling secretions
Neck: Trachea midline, supple without meningismus
Lungs: Clear to auscultation bilaterally, no wheezing, rales, rhonchi
Heart: Regular rate and rhythm, no murmurs, gallops, or rubs
Abd: Soft, non distended, diffusely tender maximal in the epigastric region
Neuro: Cranial nerves grossly intact, speech fluid
Skin: no rash
Extremities: Warm well-perfused
Scores
Heart Failure Risk
Heart Failure Risk Score: Not Applicable
Heart Score for Chest Pain Patients
STEMI patient?: Not applicable
Withdrawal Assessment of Alcohol
Withdrawal Assessment Completed?: Not applicable
Course
Orders/Labs/Results
Orders:
Orders
06/09/23 14:31
CT Abd/pel W Iv And Oral Contr Urgent
Comment:
Reason For Exam: abdominal pain, N/V
Iohexol [Omnipaque] See Protocol PO NOW STA
CR Chest Portable - 1 View Urgent
Comment:
Reason For Exam: abd pain, h/o ulcer--r/o free air
Reason Study Needs to be Portable: Unable to Transport
06/09/23 14:32
Electrocardiogram (*1) Urgent
Reason for Study: Abdominal Pain
0.9% Sodium Chloride 500 ml [Nss] 500 ml IV BOLUS
Morphine Sulfate 4 mg IV NOW STA
Ondansetron Injectable [Zofran] 4 mg IV NOW STA
06/09/23 14:43
HYDROmorphone [Dilaudid] 1 mg IV NOW STA
Pantoprazole [Protonix IV] 40 mg IV NOW STA
06/09/23 14:55
Complete Blood Count/With Diff Urgent
Comprehensive Metabolic Panel Urgent
Lactate Level [Lactic Acid] Urgent
Lipase Urgent
Magnesium Urgent
Comment: MAG ADDED ON BY FLOOR 4:40PM 06-09-23
06/09/23 Dinner
NPO
Allow oral meds: Yes
Allow clear liquids: Sips of Clears
06/09/23 15:57
HYDROmorphone [Dilaudid] 1 mg IV NOW STA
06/09/23 16:35
Potassium Chloride [KCl] 40 meq 0.9% Sodium Chloride 250 ml [Nss] 250 ml IV NOW
06/09/23 16:38
Add On- LAB Urgent
Comments:: magnesium
Tests Added?: Yes
06/09/23 18:10
Magnesium Oxide 500 mg PO NOW STA
06/09/23 19:00
Ondansetron Injectable [Zofran] 4 mg .ROUTE .STK-MED ONE
06/09/23 19:12
Ondansetron Injectable [Zofran] 4 mg IV NOW STA
06/09/23 19:39
HYDROmorphone [Dilaudid] 1 mg IV NOW STA
Mag Hydrox/Al Hydrox/Simeth [Maalox] 30 ml Phenobarb/Hyoscy/Atropine/Scop [] 10 ml PO NOW
06/09/23 20:02
Mag Hydrox/Al Hydrox/Simeth [Maalox] 30 ml .ROUTE .STK-MED ONE
Phenobarb/Hyoscy/Atropine/Scop [] 10 ml .ROUTE .STK-MED ONE
06/09/23 20:25
Admit/Transfer Patient As Directed
Co-Sign Provider:
Level of Care: Observation services
Assign to:: Medical/Surgical
Physician / Group: benjy
Diagnosis: abdominal pain
Code Status As Directed
Resuscitation Status: Full Code
06/09/23 20:28
Dicyclomine [Bentyl] 10 mg PO QIDPRN PRN
06/09/23 21:22
Acetaminophen [Tylenol] 1,000 mg PO Q6HPRN PRN
HYDROmorphone [Dilaudid] 0.5 mg IV Q4HPRN PRN
Ondansetron Injectable [Zofran] 4 mg IV Q6HPRN PRN
06/09/23 21:22
Activity As Directed
Activity Level: As Tolerated
Pneumatic Compression Sleeves As Directed
Type: Knee high
Vital Signs As Directed
Frequency: Per unit guidelines
DX Deep Vein Thrombosis Video Routine
06/09/23 22:00
Aspirin Low Dose EC [Aspir Low (Enteric Coated)] 81 mg PO HS
Atorvastatin [Lipitor] 80 mg PO HS
Docusate Sodium [Colace] 100 mg PO HS
Sennosides [Senokot] 17.2 mg PO HS
06/10/23 00:00
Sucralfate Suspension [Carafate Suspension] 1 gm PO Q6
06/10/23 06:00
Complete Blood Count/With Diff IN AM
Comprehensive Metabolic Panel IN AM
06/10/23 08:00
Amlodipine [Norvasc] 10 mg PO DAILY
Cholecalciferol (Vitamin D3) [VITAMIN D3 (cholecalciferol)] 25 mcg PO DAILY
Fluoxetine HCl [Prozac] 60 mg PO DAILY
Hydrochlorothiazide [Oretic] 25 mg PO DAILY
Losartan [Cozaar] 100 mg PO DAILY
Multivitamin [Theragran] 1 tablet PO DAILY
Pantoprazole [Protonix IV] 40 mg IV BID
ashwagandha root extract 300 mg PO DAILY
chromium picolinate 200 mcg PO DAILY
coQ10 (ubiquinol) 200 mg PO DAILY
hurxwxhh-lijmfk-whpgqumc acid [Collagen 1500 Plus C] 1 cap PO DAILY
garlic 300 mg PO DAILY
glucos sul [id number]-C-Mn [Glucosamine Chondroitin] 1 cap PO DAILY
green tea leaf extract 1 cap PO DAILY
magnesium 400 mg PO DAILY
turmeric 400 mg PO DAILY
Abnormal Lab Results
06/09/23
14:55
RBC 3.96 L 10^6/uL
(4.20-5.40)
Hct 35.9 L %
(37.0-47.0)
MCH 32.1 H pg
(27.0-31.0)
Plt Count 494 H 10^3/uL
(130-400)
Absolute Neuts (auto) 7.2 H 10^3/uL
(1.4-6.5)
Absolute Monos (auto) 0.8 H 10^3/uL
(0.1-0.6)
Neutrophils % 76.3 H %
(42.2-75.2)
Lymphocytes % 14.8 L %
(20.5-51.1)
Potassium 3.1 L mmol/L
(3.5-5.1)
Glucose 155 H mg/dl
(70-99)
Calcium 10.5 H mg/dl
(8.4-10.2)
Magnesium 1.4 L mg/dl
(1.6-2.3)
Alkaline Phosphatase 182 H U/L
(38-126)
06/09/23 14:55
06/09/23 14:55
Vital Signs
Initial and Last Documented VS:
Initial Vital Signs
Temp Pulse Resp BP Pulse Ox
36.8 C 98 18 162/88 99
06/09/23 14:14 06/09/23 14:14 06/09/23 14:14 06/09/23 14:14 06/09/23 14:14
Last Documented Vital Signs
Temp Pulse Resp BP Pulse Ox
36.8 C 98 18 154/81 94
06/09/23 14:14 06/09/23 14:14 06/09/23 14:14 06/09/23 20:00 06/09/23 20:45
MDM/Problems Addressed
Differential Diagnosis Includes:
PUD, perforated ulcer, pancreatitis, cholecystitis
MDM/Problems Addressed:
72-year-old female with history as above, recent discharge as described above returns to the emergency room with acute worsening of abdominal pain associated with nausea. Hypertensive but otherwise normal vitals. Physical exam as above. Given
degree of discomfort and tenderness called for a stat portable chest x-ray to rule out free air�this was negative. Will place an IV send labs including a CBC and a CMP, lipase. Check CT of the abdomen pelvis. Will treat pain. Treat with Protonix
given her recent history. Reassess after the above.
Labs reviewed: CBC unremarkable, CMP shows hypokalemia and hypomagnesemia which were repleted. Lipase is normal. CT of the abdomen pelvis shows no acute pathology to account for symptoms�at this point suspect pain from persistent gastric ulcer.
Added on GI cocktail. Reassess.
Patient still having severe pain refractory to ED treatment. Admit for continued management. Discussed with hospitalist.
Acute Exacerbation and/or Progression of Chronic Illness:
Acutely hypertensive
Acute Exacerbation and/or Progression of Chronic Illness: HTN
*Radiology
Radiology exam reviewed: preliminary read by ED provider and radiology read reviewed
*Pulse Oximetry
Patient hypoxic: no
*Critical Care Note
Total Time (30-74mins, 75-104mins- exclusive of procedures): Not Applicable
Data Reviewed
Review of Other/Old Records Reveals: Labs, Records, Testing and Discharge Summary
Source: patient and records
Patient Management
Discussion with other providers: Hospitalist (Discussed with hospitalist) and Radiologist (Discussed with radiologist)
Escalation/DeEscalation of care consider admission/obs:
Admission indicated
ED Attending Note
-
Portions of this chart may have been created with voice recognition software.� Occasional wrong word or��sound alike� substitutions may have occurred due to the inherent limitations of voice recognition software.
Discharge Plan
Departure
Patient Disposition: Admit
Date of Disposition: 06/09/23
Time of Disposition: 19:42
Admit to doctor: Sarwat
Presentation/result/management discussed w/ accepting MD/DO: Hospitalist
Discharge Problem:
Intractable abdominal pain, Electrolyte abnormality
Interventions
Interventions:
*Risk Screen - Suicide Last Done: 06/09/23 14:15
*General Assessment Last Done: 06/09/23 14:15
*Neglect/Abuse Screening Last Done: 06/09/23 14:15
ED- Fall Risk Assessment Last Done: 06/09/23 15:53
*Nursing Disposition Last Done: 06/09/23 21:13
[facility] Assessment Last Done: 06/09/23 15:53
Discharge Date and Time
Discharge Date/Time: 06/09/23 21:14
[2023-06-09] MEDS: OMNIPAQUE 50 ML PO (14:51)
[2023-06-09] MEDS: NSS 500 IV (14:51)
[2023-06-09] MEDS: PROTONIX IV 40 MG IV (14:51)
[2023-06-09] MEDS: ZOFRAN 4 MG IV ×2 (14:51→19:14)
[2023-06-09] MEDS: DILAUDID 1 MG IV ×3 (14:52→20:04)
[2023-06-09 15:02] LABS: % Basophils 0.2 % (0-2); % Eosinophils 0.4 % (0-6); % Immature Granulocytes 0.3 % (0-0.5); % Lymphocytes 14.8 % (20.5-51.1); % Neutrophils 76.3 % (42.2-75.2); Absolute Lymphocytes 1.4 10^3/uL (1.2-3.4); Absolute Monocytes 0.8 10^3/uL (0.1-0.6); Absolute Neutrophils 7.2 10^3/uL (1.4-6.5); Hematocrit 35.9 % (37.0-47.0); Hemoglobin 12.7 g/dL (12.0-16.0); Mean Corp Hgb Conc. 35.4 g/dL (33.0-37.0); Mean Corpuscular Hgb 32.1 pg (27.0-31.0); Mean Corpuscular Volume 90.7 fL (81.0-99.0); Mean Platelet Volume 8.9 fL (7.4-10.4); Nucleated Red Blood Cells % 0 %; Platelet Count 494 10^3/uL (130-400); Red Blood Cell Count 3.96 10^6/uL (4.20-5.40); Red Cell Dist. Width 12.6 % (11.5-14.5); White Blood Cell Count 9.5 10^3/uL (4.8-10.8)
[2023-06-09 15:16] LABS: Lactic Acid 1.5 mmol/L (0.7-2.0)
[2023-06-09 15:33] LABS: ALT (SGPT) 22 U/L (0-35); AST (SGOT) 30 U/L (14-36); Albumin 4.1 g/dl (3.5-5.0); Alkaline Phosphatase 182 U/L (38-126); Blood Urea Nitrogen 13 mg/dl (7-17); Calcium 10.5 mg/dl (8.4-10.2); Carbon Dioxide 26 mmol/L (22-30); Chloride 101 mmol/L (98-107); Estimated Creatinine Clearance 99 ml/min; Glucose 155 mg/dl (70-99); Potassium 3.1 mmol/L (3.5-5.1); Sodium 136 mmol/L (135-145); Total Bilirubin 0.8 mg/dl (0.2-1.3); Total Protein 6.6 g/dl (6.3-8.2); eGFR > 60.00
[2023-06-09 15:38] LABS: Lipase 171 U/L (23-300)
[2023-06-09 17:11] LABS: Magnesium 1.4 mg/dl (1.6-2.3)
[2023-06-09] MEDS: KCL 270 MEQ IV (17:12)
[2023-06-09] MEDS: MAGNESIUM OXIDE 500 MG PO (19:14)
[2023-06-09] MEDS: MAALOX 40 PO (20:05)
--- NOTE | 2023-06-09 20:29 | HPS.HSE ---
Family Physician
-
Family Physician: Violet Bell
Chief Complaint
-
abdominal pain
History of Present Illness
72-year-old female past medical history of GERD/peptic ulcer disease, gastric bypass, hiatal hernia, moderate protein calorie malnutrition, hypertension, hyperlipidemia, right shoulder surgery 2 weeks ago, chronic lower back pain presenting for
abdominal pain. Patient was admitted from 06/05 to 06/07 for abdominal pain and vomiting and was found to have significant peptic ulcer disease and upper endoscopy. She was treated with PPI and Carafate and symptoms improved by discharge.
This afternoon she had acute returning of her symptoms and pain has been severe. Pain is described as pressure in the upper abdomen and radiates downward. Pain is persistent and does not radiate to the chest or throat. No alleviating or worsening
factors. She has nausea and had vomiting. No blood in the vomit. No change in her bowel habits. She is having daily bowel movements. No fevers or chills. No shortness of breath. She has not been eating much.
She denies smoking. Denies current alcohol use.
Medical History
Past Medical History
Past Medical History: Reports Other (GERD/peptic ulcer disease, gastric bypass, hiatal hernia, moderate protein calorie malnutrition, hypertension, hyperlipidemia, right shoulder surgery 2 weeks ago, chronic lower back pain)
Past Surgical History: Reports Other (Decompressive laminectomies from L2-L5, gastric bypass)
Social History
Tobacco: Non-smoker
Alcohol: None
Drug: None
Family History
Family History: Not pertinent
Allergies / Home Medications
Allergies reflects when Allergies were last updated in [employer].
Home Medications with original date entered in [employer]
Allergy/Medication List:
Allergies
Allergy/AdvReac Type Severity Reaction Status Date / Time
No Known Allergies Allergy Verified 06/09/23 14:14
Home Medications
atorvastatin 80 mg tablet 80 mg PO HS High cholesterol #0 tabs 10/22/22
multivitamin 1 tab PO DAILY Supplement #0 tabs 10/22/22
chromium picolinate 200 mcg tablet 200 mcg PO DAILY Supplement 11/23/22
collagen,hydrolysate 500 mg-biotin 800 mcg-ascorbic acid 50 mg capsule (Collagen 1500 Plus C) 1 cap PO DAILY Supplement 11/23/22
magnesium 200 mg tablet 400 mg PO DAILY Supplement 11/23/22
cholecalciferol (vitamin D3) 25 mcg (1,000 unit) tablet 25 mcg PO DAILY Supplement 11/28/22
amlodipine 10 mg tablet 10 mg PO DAILY Blood pressure #0 tabs 12/19/22
hydrochlorothiazide 25 mg tablet 25 mg PO DAILY Blood pressure #0 tabs 12/19/22
losartan 100 mg tablet 100 mg PO DAILY Blood pressure #0 tabs 12/19/22
[place] 3-Turmeric 2 tab PO DAILY Supplement 05/08/23
acetaminophen 500 mg tablet (Tylenol Extra Strength) 1,000 mg PO Q6HPRN PRN mild pain 05/08/23
ashwagandha root extract 300 mg capsule 300 mg PO DAILY Supplement 05/08/23
aspirin 81 mg tablet,delayed release 81 mg PO HS Blood Clot Prevention/Tx 05/08/23
coQ10 (ubiquinol) 200 mg capsule 200 mg PO DAILY Supplement 05/08/23
docusate sodium 100 mg capsule (Colace) 100 mg PO HS Constipation 05/08/23
garlic 300 mg capsule 300 mg PO DAILY Supplement ##0 05/08/23
glucosamine sulf dipot chlr,msm,chond 550 mg-C 30 mg-tosin 1 mg capsule (Glucosamine Chondroitin) 1 cap PO DAILY Supplement 05/08/23
green tea leaf extract 1 cap PO DAILY Supplement 05/08/23
sennosides 8.6 mg tablet (senna) 17.2 mg PO HS Constipation 05/08/23
turmeric 400 mg capsule 400 mg PO DAILY Supplement 05/08/23
Dha W/ Vitamin D 1 tab PO DAILY Supplement 06/06/23
fluoxetine 20 mg capsule 60 mg PO DAILY Depression/Anxiety 06/06/23
oxycodone-acetaminophen 5 mg-325 mg tablet (Percocet) 1 tab PO Q6HPRN PRN moderate pain 06/06/23
pantoprazole 40 mg tablet,delayed release 40 mg PO BID Gastrointestinal issue #60 tabs 06/08/23
sucralfate 100 mg/mL oral suspension 1 gm PO Q6 #120 doses 06/08/23
Review of Systems
-
History Source: Patient
A 12 point ROS was completed and negative except as noted: Yes
Constitutional: Reports No Symptoms
EENT: Reports No Symptoms
Respiratory: Reports No Symptoms
Cardiac: Reports No Symptoms
Abdomen/GI: Reports See HPI
: Reports No Symptoms
Musculoskeletal: Reports No Symptoms
Skin: Reports No Symptoms
Neurological: Reports No Symptoms
Endocrine: Reports No Symptoms
Hematologic/Lymphatic: Reports No Symptoms
Psych: Reports No Symptoms
Physical Exam
Vital Signs
Vital Signs
Temp Pulse Resp BP Pulse Ox
98.2 F 98 18 147/78 96
06/09/23 14:14 06/09/23 14:14 06/09/23 14:14 06/09/23 18:25 06/09/23 18:45
Physical Exam
General: Well Developed, Well Nourished and No Apparent Distress
HEENT: NormoCephalic, Moist mucous membranes and Atraumatic
Respiratory: Clear
Cardiac: S1/S2 and Regular Rhythm; No Murmur or Rub
GI: Soft, Non Distended, Normal Bowel Sounds and Tender (epigastric ); No Organomegaly
Rectal: Deferred by Provider
Musculoskeletal: No Clubbing, No Cyanosis and No Edema
Skin: No Rash
Neuro: Nonfocal/grossly intact
Laboratory Results
-
06/09/23 14:55
06/09/23 14:55
Laboratory Results
Lactic Acid 1.5 mmol/L (0.7-2.0) 06/09/23 14:55
Total Bilirubin 0.8 mg/dl (0.2-1.3) 06/09/23 14:55
AST 30 U/L (14-36) 06/09/23 14:55
ALT 22 U/L (0-35) 06/09/23 14:55
Alkaline Phosphatase 182 U/L (38-126) H 06/09/23 14:55
Lipase 171 U/L (23-300) 06/09/23 14:55
Data Reviewed
-
Lab Data: Labs Reviewed by me
Old Records: Reviewed
Impression/Plan
-
IMPRESSION:
PLAN:
# Recurrent severe abdominal pain/vomiting secondary to gastrojejunal anastomotic ulcer/esophagitis
# History of gastric bypass
# History of GERD/hiatal hernia
-CT abdomen pelvis shows focal area of small bowel which is distended to 4 cm similar to prior examination. There is postoperative stenosis at this anastomosis
-Continue Protonix 40 IV twice daily
-Continue Carafate
-Try dicyclomine PRN for pain
-IV dilaudid PRN
-GI consulted
# Hypokalemia
-Potassium repleted
Essential hypertension
-Continue amlodipine, hydrochlorothiazide, losartan
Hyperlipidemia
-Continue statin
Recent right shoulder surgery
-Patient has been taking Percocet for this
Chronic lower back pain
-Continue Tylenol
Anxiety/depression
-Continue fluoxetine
Constipation
-Continue bowel rest
Moderate protein calorie malnutrition
Full code
DVT prophylaxis�SCDs
N.p.o.
--- NOTE | 2023-06-09 21:19 | PTCARENOTE ---
Pt received from ED to 436-1. Pt oriented to room and call galeas.
[2023-06-09] MEDS: COMPAZINE 10 MG IV (22:20)
[2023-06-09] MEDS: SENOKOT 17.1999999999999993 MG PO (23:21)
[2023-06-09] MEDS: CARAFATE SUSPENSION 1 GM PO (23:21)
[2023-06-09] MEDS: COLACE 100 MG PO (23:21)
[2023-06-09] MEDS: ASPIR LOW (ENTERIC COATED) 81 MG PO (23:21)
[2023-06-09] MEDS: LIPITOR 80 MG PO (23:21)
[2023-06-10] MEDS: ZOFRAN 4 MG IV (00:51)
[2023-06-10] MEDS: DILAUDID 0.5 MG IV ×3 (01:18→22:42)
[2023-06-10] MEDS: CARAFATE SUSPENSION 1 GM PO ×4 (05:05→22:43)
[2023-06-10 07:00] VITALS: BP 108/70
[2023-06-10 07:40] LABS: % Basophils 0.3 % (0-2); % Eosinophils 0.5 % (0-6); % Immature Granulocytes 0.4 % (0-0.5); % Lymphocytes 13.7 % (20.5-51.1); % Monocytes 8.5 % (1.7-9.3); % Neutrophils 76.6 % (42.2-75.2); Absolute Lymphocytes 1.1 10^3/uL (1.2-3.4); Absolute Monocytes 0.7 10^3/uL (0.1-0.6); Hematocrit 34.2 % (37.0-47.0); Hemoglobin 11.8 g/dL (12.0-16.0); Mean Corp Hgb Conc. 34.5 g/dL (33.0-37.0); Mean Corpuscular Hgb 31.9 pg (27.0-31.0); Mean Corpuscular Volume 92.4 fL (81.0-99.0); Mean Platelet Volume 9.3 fL (7.4-10.4); Nucleated Red Blood Cells % 0 %; Platelet Count 495 10^3/uL (130-400); Red Cell Dist. Width 12.4 % (11.5-14.5); White Blood Cell Count 7.8 10^3/uL (4.8-10.8)
[2023-06-10 08:15] LABS: ALT (SGPT) 19 U/L (0-35); AST (SGOT) 26 U/L (14-36); Albumin 3.7 g/dl (3.5-5.0); Alkaline Phosphatase 163 U/L (38-126); Blood Urea Nitrogen 6 mg/dl (7-17); Calcium 9.5 mg/dl (8.4-10.2); Carbon Dioxide 29 mmol/L (22-30); Chloride 95 mmol/L (98-107); Estimated Creatinine Clearance 98 ml/min; Glucose 108 mg/dl (70-99); Potassium 3.3 mmol/L (3.5-5.1); Sodium 133 mmol/L (135-145); Total Bilirubin 0.7 mg/dl (0.2-1.3); Total Protein 6.4 g/dl (6.3-8.2); eGFR > 60.00
[2023-06-10] MEDS: NORVASC 10 MG PO (09:07)
[2023-06-10] MEDS: PROTONIX IV 40 MG IV ×2 (09:07→20:17)
[2023-06-10] MEDS: ORETIC 25 MG PO (09:07)
[2023-06-10] MEDS: PROZAC 60 MG PO (09:07)
[2023-06-10] MEDS: NSS (PRESERVATIVE FREE) 10 ML IV ×2 (09:07→20:17)
[2023-06-10] MEDS: COZAAR 100 MG PO (09:07)
[2023-06-10] MEDS: VITAMIN D3 (cholecalciferol) 25 MCG PO (09:08)
[2023-06-10] MEDS: THERAGRAN 1 TABLET PO (09:08)
--- NOTE | 2023-06-10 09:19 | CON.GI ---
Addendum entered and electronically signed by Aliza Russo MD 06/10/23 15:41:
I saw and examined the patient.
The ENDLESS STEAMER TENDER or PA's note was reviewed and I agree with the note.
Comment: 72-year-old female past medical history of gastric bypass with very recent admission discharged June 07 and returned to the emergency room June 08. Last admission was seen by Dr. White and underwent endoscopy as outlined below but
ultimately showed an ulcer at the GJ anastomosis and a fistula. Prior to this admission, she been off her PPI and taking some Motrin. In the short interval between her discharge and readmission, she has remained on her PPI and Carafate. I
reviewed her CT scan overall seems to be unchanged from prior. Blood work shows normal white blood cell count, hemoglobin 11.8, normal BMP. We discussed she just may need some time to heal her ulcers. She has an upcoming endoscopy with Dr. Carrasquillo
which I will discuss with him on Monday regarding her recent admission. For now, continue supportive care with PPIs, Carafate, antiemetics, clear liquid diet.
Original Note:
Consultation
-
Date/Time Consultation Requested: 06/09/23 2300
Date/Time Consultation Performed: 06/10/23 0900
Requesting Provider: Dr. Syed
Performing Provider: Dr. Russo/GIANFRANCO Jimenez
Reason for Consultation: abd pain
Medical History
Chief Complaint / HPI
Chief Complaint: abdominal pain
History of Present Illness:
72-year-old female with a past medical history significant for GERD, hypertension, gastric bypass surgery in the , PUD, DDD s/p right shoulder surgery 2 weeks ago, hyperlipidemia, who was recently hospitalized 06/06/23 with N/V and abdominal
pain and had EGD performed on 06/07/23 that showed white nummular lesions noted in the middle third of the esophagus. 3 cm hiatal hernia. Evidence of gastric bypass. Gastric pouch. Evidence of clean-based ulcer, measuring 8 mm at the gastrojejunal
anastomosis. The jejunal jejunal anastomosis was characterized by healthy-appearing mucosa. Excluded stomach was not examined. Evidence of gastric fistula present within the superior gastric body measuring 1 cm which led to the excluded remnant
stomach. The patient was started on pantoprazole 40 mg twice daily and Carafate suspension 4 times a day and was able to be discharged on 06/08/2023. The patient does have prior history of ulceration in the area in the past. The patient was seen in
October 2022 for abdominal pain and had EGD on 10/21/2022 showing small hiatal hernia. Emily-en-Y gastrojejunostomy with gastrojejunal anastomosis characterized by ulceration. Fistula between the surgical gastric pouch and excluded stomach
allowing to examine the excluded stomach which had a superficial ulcer in the antrum. Normal examined duodenum normal examined jejunum. The patient had a repeat EGD in January 2027 that showed a 3 cm hiatal hernia. Emily-en-Y gastrojejunostomy
with gastrojejunal anastomosis characterized by healthy-appearing mucosa and no signs stomal ulceration. 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 Normal examined duodenum. She was to not use any NSAIDs given her ulceration history.
The patient did run out of her pantoprazole approximately 2 to 3 weeks ago and has been without prior to her hospitalization on 06/06/2023. The patient was utilizing up to 6 tablets of Motrin daily for her recent shoulder surgery. She has stopped
these few days prior to arrival at the end of May. Currently she comes back as she started having abdominal discomfort again on 06/09/2019 4 in the evening that was a dull aching sensation with radiation down into the periumbilical area. She also
had an episode of yellow bilious vomiting. She denies any fevers, chills, melena, hematochezia, dysphagia or dyne aphasia. No early satiety or unintentional weight loss. She states that she was trying to drink protein drinks. WBC 7.8, hemoglobin
11.8 (11.2 on discharge) hematocrit 34.2, platelets 495, sodium 133, potassium 3.3 (up from 3.1) chloride 95, CO2 29, BUN 6, creatinine 0.4, glucose 108, lactic acid 1.5, total bilirubin 0.7, AST 26, ALT 19, alk phos 163, lipase 171. CT of the
abdomen pelvis with oral and IV contrast shows mild distention of focal loop of small bowel in the left mid abdomen, filled with oral contrast, consistent with stenosis of the anastomosis related to the patient's previous gastric bypass. There is
no other evidence to suggest bowel obstruction. No free air. No free fluid or collection. The remainder the exam is unchanged compared to 4 days ago. chest x-ray shows no pneumoperitoneum. No acute pulmonary process identified. Probable mild
ectasia of the ascending aort
Past Medical History
Past Medical History: GERD, HTN, Hypercholesterolemia, Psychiatric (depression) and Other (Obesity, arthritis, chronic back pain due to DDD, left sacral fracture)
Past Surgical History: Orthopedic (lumbar laminectomy, spinal injection, left knee replacement, right knee replacement right shoulder surgery, breasat reduction) and Other (Gastric bypass surgery , sinus surgery)
Social History
Tobacco: Smoker (1 a month)
Alcohol: Occasional (stopped a cupleweek ago, wa drinking 2-3 glasses of wine a day.)
Drug: None
Personal:
Living: With Family
Family History
Family History: Other (No fam hx of GI malignancy or IBD)
Allergies / Home Medications
Allergy/AdvReac Type Severity Reaction Status Date / Time
No Known Allergies Allergy Verified 06/09/23 14:14
�Medication �Instructions �Recorded
atorvastatin 80 mg tablet 80 mg PO HS High cholesterol #0 10/22/22
tabs
multivitamin 1 tab PO DAILY Supplement #0 tabs 10/22/22
chromium picolinate 200 mcg tablet 200 mcg PO DAILY Supplement 11/23/22
collagen,hydrolysate 500 mg-biotin 1 cap PO DAILY Supplement 11/23/22
800 mcg-ascorbic acid 50 mg
capsule (Collagen 1500 Plus C)
magnesium 200 mg tablet 400 mg PO DAILY Supplement 11/23/22
cholecalciferol (vitamin D3) 25 25 mcg PO DAILY Supplement 11/28/22
mcg (1,000 unit) tablet
amlodipine 10 mg tablet 10 mg PO DAILY Blood pressure #0 12/19/22
tabs
hydrochlorothiazide 25 mg tablet 25 mg PO DAILY Blood pressure #0 12/19/22
tabs
losartan 100 mg tablet 100 mg PO DAILY Blood pressure #0 12/19/22
tabs
[place] 3-Turmeric 2 tab PO DAILY Supplement 05/08/23
acetaminophen 500 mg tablet 1,000 mg PO Q6HPRN PRN mild pain 05/08/23
(Tylenol Extra Strength)
ashwagandha root extract 300 mg 300 mg PO DAILY Supplement 05/08/23
capsule
aspirin 81 mg tablet,delayed 81 mg PO HS Blood Clot 05/08/23
release Prevention/Tx
coQ10 (ubiquinol) 200 mg capsule 200 mg PO DAILY Supplement 05/08/23
docusate sodium 100 mg capsule 100 mg PO HS Constipation 05/08/23
(Colace)
garlic 300 mg capsule 300 mg PO DAILY Supplement ##0 05/08/23
glucosamine sulf dipot 1 cap PO DAILY Supplement 05/08/23
chlr,msm,chond 550 mg-C 30 mg-tosin
1 mg capsule (Glucosamine
Chondroitin)
green tea leaf extract 1 cap PO DAILY Supplement 05/08/23
sennosides 8.6 mg tablet (senna) 17.2 mg PO HS Constipation 05/08/23
turmeric 400 mg capsule 400 mg PO DAILY Supplement 05/08/23
Dha W/ Vitamin D 1 tab PO DAILY Supplement 06/06/23
fluoxetine 20 mg capsule 60 mg PO DAILY Depression/Anxiety 06/06/23
oxycodone-acetaminophen 5 mg-325 1 tab PO Q6HPRN PRN moderate pain 06/06/23
mg tablet (Percocet)
pantoprazole 40 mg tablet,delayed 40 mg PO BID Gastrointestinal 06/08/23
release issue #60 tabs
sucralfate 100 mg/mL oral 1 gm PO Q6 #120 doses 06/08/23
suspension
Review of Systems
-
All other systems: A 12 pt ROS was Negative except as stated above in HPI
Vital Signs
Temp Pulse Resp BP Pulse Ox
98.2 F 65 18 108/70 96
06/10/23 07:00 06/10/23 07:00 06/10/23 07:00 06/10/23 07:00 06/10/23 07:00
Physical Exam
Exam
General: Well Nourished
HEENT: Normocephalic
Respiratory: Clear
Cardiac: Regular Rhythm
GI: Soft, Non Distended, Normal Bowel Sounds and Tender (Periumbilical)
Skin: Warm and Dry
Neuro: AO x 3
Psych: Calm
Results
WBC 7.8 10^3/uL (4.8-10.8) 06/10/23 05:33
Hgb 11.8 g/dL (12.0-16.0) L 06/10/23 05:33
Hct 34.2 % (37.0-47.0) L 06/10/23 05:33
MCV 92.4 fL (81.0-99.0) 06/10/23 05:33
Plt Count 495 10^3/uL (130-400) H 06/10/23 05:33
Absolute Neuts (auto) 6.0 10^3/uL (1.4-6.5) 06/10/23 05:33
Sodium 133 mmol/L (135-145) L 06/10/23 05:33
Potassium 3.3 mmol/L (3.5-5.1) L 06/10/23 05:33
Chloride 95 mmol/L (98-107) L 06/10/23 05:33
Carbon Dioxide 29 mmol/L (22-30) 06/10/23 05:33
BUN 6 mg/dl (7-17) L 06/10/23 05:33
Creatinine 0.4 mg/dL (0.6-1.0) L 06/10/23 05:33
Calcium 9.5 mg/dl (8.4-10.2) 06/10/23 05:33
Total Bilirubin 0.7 mg/dl (0.2-1.3) 06/10/23 05:33
AST 26 U/L (14-36) 06/10/23 05:33
ALT 19 U/L (0-35) 06/10/23 05:33
Alkaline Phosphatase 163 U/L (38-126) H 06/10/23 05:33
Lipase 171 U/L (23-300) 06/09/23 14:55
Diagnostic Image Results:
CT abdomen and pelvis with oral and IV contrast dated 06/09/2023:
IMPRESSION:
There is mild distention of a focal loop of small bowel in the left mid abdomen, filled with oral contrast, consistent with stenosis of the anastomosis related to the patient's previous gastric bypass. There is no other evidence to suggest bowel
obstruction.
No free air. No free fluid or fluid collection.
The remainder of the exam is unchanged compared to 4 days ago.
Results discussed with Dr. Lamb at 7:30 PM.
Electronically signed by Lucretia Rosenthal MD 06/09/2023 7:38 PM
Chest x-ray:
IMPRESSION:
1. No pneumoperitoneum.
2. No acute pulmonary process identified.
3. Probable mild ectasia of the ascending aorta.
Prior GI Procedures:
EGD: 02/01/2023 ([facility]) - 3 cm hiatal hernia.
- Emily-en-Y gastrojejunostomy with gastrojejunal
anastomosis characterized by healthy appearing mucosa
and no stomal ulceration.
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
remnant.
- Normal examined duodenum.
- No specimens collected.
EGD 10/21/2022 ([facility]) - Small hiatal hernia.
- Emily-en-Y gastrojejunostomy with gastrojejunal
anastomosis characterized by ulceration. Biopsied the
gastric pouch for h.pylori.
- Fistula between the surgical gastric pouch and
excluded stomach allowing me to examine the excluded
stomach which had a superficial ulcer in the antrum.
- Normal examined duodenum.
- Normal examined jejunum.
Colonoscopy: Per pt done about 5 years ago with hx polyps (report not available to me)
EGD: 06/07/2023 ([facility]):
White nummular lesions were noted in the middle third of the esophagus.
Biopsies were taken with a cold forceps for histology.
A 3 cm hiatal hernia was present.
The exam of the esophagus was otherwise normal.
Evidence of a gastric bypass was found. A gastric pouch was found. There
was evidence of a clean based ulcer, measuring approximately 8 mm at the
gastrojejunal anastomosis. The jejunojejunal anastomosis was
characterized by healthy appearing mucosa. The excluded stomach was not
examined. There was evidence of a gastric fistula present in the
superior gastric body, measuring approximately 1 cm, which led to the
excluded remnant stomach.
The exam was otherwise without abnormality.
Assessment / Plan
-
72-year-old female with a past medical history significant for GERD, hypertension, gastric bypass surgery in the , PUD, DDD s/p right shoulder surgery 2 weeks ago, hyperlipidemia, who was recently hospitalized 06/06/23 with N/V and abdominal
pain and had EGD performed on 06/07/23 that showed white nummular lesions noted in the middle third of the esophagus. 3 cm hiatal hernia. Evidence of gastric bypass. Gastric pouch. Evidence of clean-based ulcer, measuring 8 mm at the gastrojejunal
anastomosis. The jejunal jejunal anastomosis was characterized by healthy-appearing mucosa. Excluded stomach was not examined. Evidence of gastric fistula present within the superior gastric body measuring 1 cm which led to the excluded remnant
stomach. The patient was started on pantoprazole 40 mg twice daily and Carafate suspension 4 times a day and was able to be discharged on 06/08/2023. She comes in with WBC 7.8, hemoglobin 11.8 (11.2 on discharge) hematocrit 34.2, platelets 495,
sodium 133, potassium 3.3 (up from 3.1) chloride 95, CO2 29, BUN 6, creatinine 0.4, glucose 108, lactic acid 1.5, total bilirubin 0.7, AST 26, ALT 19, alk phos 163, lipase 171. CT of the abdomen pelvis with oral and IV contrast shows mild
distention of focal loop of small bowel in the left mid abdomen, filled with oral contrast, consistent with stenosis of the anastomosis related to the patient's previous gastric bypass. There is no other evidence to suggest bowel obstruction. No
free air. No free fluid or collection. The remainder the exam is unchanged compared to 4 days ago. chest x-ray shows no pneumoperitoneum. No acute pulmonary process identified. Probable mild ectasia of the ascending aorta.
Impression:
Epigastric/periumbilical pain
Gastrojejunal clean-based ulcer (8 mm) 06/07/23 on EGD
Gastric fistula into gastric remnant stomach
Bilious vomiting
Recent right shoulder surgery with prior NSAID (stopped end of May)
Cholelithiasis with normal LFTs, no bile duct dilatation and normal Lipase
Plan:
-Continue Pantoprazole 40 mg BID
-Carafate suspension QID
-Antiemetics prn
-clear liquids as tolerated, will add Ensure clear.
-Further recommendations to be forthcoming
Data Reviewed
-
Radiology: Report Reviewed by me
CT Scan: Report Reviewed by me
Ultrasound: Report Reviewed by me
Old Records: Reviewed
-
-
Thank you for consultation and allowing me to participate in the patient's care. Please call the packer insulation GI physician during the after hours with any questions or concerns.
--- NOTE | 2023-06-10 14:58 | W.PN.HOSP.TC ---
Today's Communication/Plan
-
continue IV PPI therapy.
-Diet per GI
Assessment / Plan
Assessment / Plan
# Recurrent severe abdominal pain/vomiting secondary to gastrojejunal anastomotic ulcer/esophagitis
# History of gastric bypass
# History of GERD/hiatal hernia
-CT abdomen pelvis shows focal area of small bowel which is distended to 4 cm similar to prior examination. There is postoperative stenosis at this anastomosis
-Continue Protonix 40 IV twice daily
-Continue Carafate
-CW dicyclomine PRN for pain
-CW IV dilaudid PRN
-GI input pending
Essential hypertension
-Continue amlodipine, hydrochlorothiazide, losartan
Hyperlipidemia
-Continue statin
Recent right shoulder surgery
-Patient has been taking Percocet for this
Chronic lower back pain
-Continue Tylenol
Anxiety/depression
-Continue fluoxetine
Constipation
-Continue bowel rest
Moderate protein calorie malnutrition
Full code
DVT prophylaxis�SCDs
Diet per GI
Anticipated Discharge: > 48 hours
Subjective/Interval History
-
Date of Service: June 10, 2023
persist to have intermittent abdominal pain. Right now the pain is decreased but still feels a deep discomfort. No nausea currently but she had nausea and vomiting at home.
Objective Data
-
Labs:
Laboratory Results
06/10/23
05:33
WBC 7.8
Hgb 11.8 L
Hct 34.2 L
Plt Count 495 H
Sodium 133 L
Potassium 3.3 L
Chloride 95 L
Carbon Dioxide 29
BUN 6 L
Creatinine 0.4 L
Glucose 108 H
Calcium 9.5
Total Bilirubin 0.7
AST 26
ALT 19
Alkaline Phosphatase 163 H
Vital Signs:
Vital Signs
Temp Pulse Resp BP Pulse Ox
98.2 F 65 18 108/70 96
06/10/23 07:00 06/10/23 07:00 06/10/23 07:00 06/10/23 07:00 06/10/23 09:05
I&O
06/09/23 06/10/23 06/11/23
06:59 06:59 06:59
Intake Total
Balance
Review of Systems
-
Constitutional: Denies Fever
Respiratory: Denies Trouble Breathing
Cardiac: Denies Chest Pain
Neuro: Denies Dizzy
Physical Exam
-
General: No Apparent Distress
HEENT: Moist Mucous Membranes
Respiratory: Clear to Auscultation
Cardiac: Regular Rhythm and S1/S2
GI: Soft, Nondistended, Normal Bowel Sounds and Tender (Epigastric area)
Neuro: AO x 3
Psych: Calm
Data Reviewed
-
Labs: Labs Reviewed by me
[2023-06-10 15:00] VITALS: BP 101/63
--- NOTE | 2023-06-10 15:26 | CM ---
Patient seen bedside with spouse, initial assessment completed. Patient resides with in a two story home, 2 steps to enter. Patient denies DME, history with [facility] after knee replacement, denies SNF. Patient confirms PCP Violet Bell,
pharmacy [facility], confirms prescription coverage. [facility] form reviewed signed, placed in chart. CM will continue to follow for discharge planning needs.
Plan; home no needs likely.
[2023-06-10] MEDS: COLACE PO (20:16)
[2023-06-10] MEDS: ASPIR LOW (ENTERIC COATED) 81 MG PO (20:17)
[2023-06-10] MEDS: LIPITOR 80 MG PO (20:17)
[2023-06-10] MEDS: SENOKOT PO (20:17)
[2023-06-10 22:25] LABS: Hepatitis C Antibody Negative (Negative)
[2023-06-10 22:55] VITALS: BP 140/69
[2023-06-11] MEDS: BENTYL 10 MG PO (01:04)
[2023-06-11] MEDS: DILAUDID 0.5 MG IV ×2 (02:34→06:25)
[2023-06-11 05:53] LABS: Hematocrit 37.1 % (37.0-47.0); Mean Corpuscular Hgb 31.7 pg (27.0-31.0); Mean Corpuscular Volume 90.5 fL (81.0-99.0); Platelet Count 521 10^3/uL (130-400); Red Cell Dist. Width 12.4 % (11.5-14.5); White Blood Cell Count 9.7 10^3/uL (4.8-10.8)
[2023-06-11] MEDS: CARAFATE SUSPENSION 1 GM PO ×4 (06:12→23:16)
[2023-06-11 06:19] LABS: ALT (SGPT) 20 U/L (0-35); AST (SGOT) 28 U/L (14-36); Alkaline Phosphatase 171 U/L (38-126); Blood Urea Nitrogen 8 mg/dl (7-17); Calcium 10.3 mg/dl (8.4-10.2); Carbon Dioxide 29 mmol/L (22-30); Chloride 96 mmol/L (98-107); Direct Bilirubin 0.4 mg/dl (0.0-0.4); Estimated Creatinine Clearance 98 ml/min; Glucose 113 mg/dl (70-99); Potassium 3.9 mmol/L (3.5-5.1); Sodium 134 mmol/L (135-145); Total Bilirubin 0.9 mg/dl (0.2-1.3); Total Protein 6.8 g/dl (6.3-8.2); eGFR > 60.00
[2023-06-11 07:10] VITALS: BP 142/81
[2023-06-11] MEDS: ORETIC 25 MG PO (08:19)
[2023-06-11] MEDS: PROTONIX IV 40 MG IV ×2 (08:19→21:17)
[2023-06-11] MEDS: NORVASC 10 MG PO (08:19)
[2023-06-11] MEDS: NSS (PRESERVATIVE FREE) 10 ML IV ×2 (08:19→21:17)
[2023-06-11] MEDS: COZAAR 100 MG PO (08:19)
[2023-06-11] MEDS: PROZAC 60 MG PO (08:19)
[2023-06-11] MEDS: THERAGRAN 1 TABLET PO (08:20)
[2023-06-11] MEDS: VITAMIN D3 (cholecalciferol) 25 MCG PO (08:20)
--- NOTE | 2023-06-11 11:32 | W.PN.HOSP.TC ---
Today's Communication/Plan
-
Continue with current treatments for her gastric ulcer at the GJ anastomosis
Advance diet per GI next
Assessment / Plan
Assessment / Plan
# Recurrent severe abdominal pain/vomiting secondary to gastrojejunal anastomotic ulcer/esophagitis
# History of gastric bypass
# History of GERD/hiatal hernia
-CT abdomen pelvis shows focal area of small bowel which is distended to 4 cm similar to prior examination. There is postoperative stenosis at this anastomosis
-Continue Protonix 40 IV twice daily
-Continue Carafate
-CW dicyclomine PRN for pain
-CW IV dilaudid PRN
-GI input noted
- Slow improvement
Essential hypertension
-Continue amlodipine, hydrochlorothiazide, losartan
Hyperlipidemia
-Continue statin
Recent right shoulder surgery
-Patient has been taking Percocet for this
Chronic lower back pain
-Continue Tylenol
Anxiety/depression
-Continue fluoxetine
Constipation
-Continue bowel rest
Moderate protein calorie malnutrition
Full code
DVT prophylaxis�SCDs
Diet per GI
Anticipated Discharge: 24 - 48 hours
Subjective/Interval History
-
Date of Service: June 11, 2023
Abdo Pain is better today. So far not requiring pain medication.
So far tolerating clear liquids.
Objective Data
-
Labs:
Laboratory Results
06/11/23
05:29
WBC 9.7
Hgb 13.0
Hct 37.1
Plt Count 521 H
Sodium 134 L
Potassium 3.9
Chloride 96 L
Carbon Dioxide 29
BUN 8
Creatinine 0.5 L
Glucose 113 H
Calcium 10.3 H
Total Bilirubin 0.9
AST 28
ALT 20
Alkaline Phosphatase 171 H
Vital Signs:
Vital Signs
Temp Pulse Resp BP Pulse Ox
98.4 F 84 18 142/81 99
06/11/23 07:10 06/11/23 07:10 06/11/23 07:10 06/11/23 07:10 06/11/23 08:45
I&O
06/10/23 06/11/23 06/12/23
06:59 06:59 06:59
Intake Total 1679
Balance 1679
Review of Systems
-
Respiratory: Denies Trouble Breathing
Cardiac: Denies Chest Pain
Neuro: Denies Dizzy
Physical Exam
-
General: No Apparent Distress
HEENT: Moist Mucous Membranes
Respiratory: Clear to Auscultation
Cardiac: Regular Rhythm and S1/S2
GI: Soft, Nondistended, Normal Bowel Sounds and Tender (epigastric area - improved)
Neuro: AO x 3
Psych: Calm
Data Reviewed
-
Labs: Labs Reviewed by me
--- NOTE | 2023-06-11 12:38 | CM ---
Chart reviewed, per Hospitalist note, advance diet per GI. Patient seen bedside, reports no concerns to CM. CM will continue to follow for discharge planning needs.
Plan; home with spouse, no needs likely.
[2023-06-11 15:16] VITALS: BP 126/63; BMI 30.6
--- NOTE | 2023-06-11 15:54 | W.PN.GI.CBS2 ---
Today's Communication / Plan
-
adv diet, dc planning possible dc in am
Assessment / Plan
-
72-year-old female with a past medical history significant for GERD, hypertension, gastric bypass surgery in the , PUD, DDD s/p right shoulder surgery 2 weeks ago, hyperlipidemia, who was recently hospitalized 06/06/23 with N/V and abdominal
pain and had EGD performed on 06/07/23 that showed white nummular lesions noted in the middle third of the esophagus. 3 cm hiatal hernia. Evidence of gastric bypass. Gastric pouch. Evidence of clean-based ulcer, measuring 8 mm at the gastrojejunal
anastomosis. The jejunal jejunal anastomosis was characterized by healthy-appearing mucosa. Excluded stomach was not examined. Evidence of gastric fistula present within the superior gastric body measuring 1 cm which led to the excluded remnant
stomach. The patient was started on pantoprazole 40 mg twice daily and Carafate suspension 4 times a day and was able to be discharged on 06/08/2023. She comes in with WBC 7.8, hemoglobin 11.8 (11.2 on discharge) hematocrit 34.2, platelets 495,
sodium 133, potassium 3.3 (up from 3.1) chloride 95, CO2 29, BUN 6, creatinine 0.4, glucose 108, lactic acid 1.5, total bilirubin 0.7, AST 26, ALT 19, alk phos 163, lipase 171. CT of the abdomen pelvis with oral and IV contrast shows mild
distention of focal loop of small bowel in the left mid abdomen, filled with oral contrast, consistent with stenosis of the anastomosis related to the patient's previous gastric bypass. There is no other evidence to suggest bowel obstruction. No
free air. No free fluid or collection. The remainder the exam is unchanged compared to 4 days ago. chest x-ray shows no pneumoperitoneum. No acute pulmonary process identified. Probable mild ectasia of the ascending aorta.
Impression:
Epigastric/periumbilical pain
Gastrojejunal clean-based ulcer (8 mm) 06/07/23 on EGD
Gastric fistula into gastric remnant stomach
Bilious vomiting
Recent right shoulder surgery with prior NSAID (stopped end of May)
Cholelithiasis with normal LFTs, no bile duct dilatation and normal Lipase
Plan:
-Continue Pantoprazole 40 mg BID
-Carafate suspension QID
-Antiemetics prn
-advance diet to low residue/low fat
-if tolerates diet ok gi pov for dc tmwr
-has outpatient follow up with Dr. Carrasquillo (EGD and OV)
Subjective
Subjective
Date of Service: June 11, 2023
pain improved still present
Objective
Data Reviewed
Laboratory Data:
Laboratory Results
06/11/23 05:29
06/11/23 05:29
Laboratory Results
Magnesium 1.4 mg/dl (1.6-2.3) L 06/09/23 14:55
Total Bilirubin 0.9 mg/dl (0.2-1.3) 06/11/23 05:29
AST 28 U/L (14-36) 06/11/23 05:29
ALT 20 U/L (0-35) 06/11/23 05:29
Alkaline Phosphatase 171 U/L (38-126) H 06/11/23 05:29
Lipase 171 U/L (23-300) 06/09/23 14:55
Vital Signs and I&O:
Vital Signs
Temp Pulse Resp BP Pulse Ox
97.9 F 90 16 126/63 94
06/11/23 15:16 06/11/23 15:16 06/11/23 15:16 06/11/23 15:16 06/11/23 15:16
I&O
06/10/23 06/11/23 06/12/23
06:59 06:59 06:59
Intake Total 0 / 0
Balance 1679 / 1679
Physical Exam
Physical Exam
GI: Non Distended and Non Tender
[2023-06-11] MEDS: SENOKOT 17.1999999999999993 MG PO (21:17)
[2023-06-11] MEDS: COLACE 100 MG PO (21:17)
[2023-06-11] MEDS: LIPITOR 80 MG PO (21:17)
[2023-06-11] MEDS: ASPIR LOW (ENTERIC COATED) 81 MG PO (21:17)
[2023-06-11 23:59] VITALS: BP 101/60
[2023-06-12] MEDS: TYLENOL 1000 MG PO ×2 (02:49→08:23)
[2023-06-12] MEDS: CARAFATE SUSPENSION 1 GM PO ×2 (05:34→22:21)
[2023-06-12 07:32] VITALS: BP 142/74
[2023-06-12] MEDS: PROZAC 60 MG PO (08:23)
[2023-06-12] MEDS: PROTONIX IV 40 MG IV ×2 (08:24→20:16)
[2023-06-12] MEDS: NORVASC 10 MG PO (08:24)
[2023-06-12] MEDS: COZAAR 100 MG PO (08:24)
[2023-06-12] MEDS: THERAGRAN 1 TABLET PO (08:24)
[2023-06-12] MEDS: NSS (PRESERVATIVE FREE) 10 ML IV ×2 (08:24→20:16)
[2023-06-12] MEDS: VITAMIN D3 (cholecalciferol) 25 MCG PO (08:24)
[2023-06-12] MEDS: ORETIC 25 MG PO (08:24)
--- NOTE | 2023-06-12 09:03 | W.PN.GI.CBS2 ---
Today's Communication / Plan
-
dc planning
Assessment / Plan
-
72-year-old female with a past medical history significant for GERD, hypertension, gastric bypass surgery in the , PUD, DDD s/p right shoulder surgery 2 weeks ago, hyperlipidemia, who was recently hospitalized 06/06/23 with N/V and abdominal
pain and had EGD performed on 06/07/23 that showed white nummular lesions noted in the middle third of the esophagus. 3 cm hiatal hernia. Evidence of gastric bypass. Gastric pouch. Evidence of clean-based ulcer, measuring 8 mm at the gastrojejunal
anastomosis. The jejunal jejunal anastomosis was characterized by healthy-appearing mucosa. Excluded stomach was not examined. Evidence of gastric fistula present within the superior gastric body measuring 1 cm which led to the excluded remnant
stomach. The patient was started on pantoprazole 40 mg twice daily and Carafate suspension 4 times a day and was able to be discharged on 06/08/2023. She comes in with WBC 7.8, hemoglobin 11.8 (11.2 on discharge) hematocrit 34.2, platelets 495,
sodium 133, potassium 3.3 (up from 3.1) chloride 95, CO2 29, BUN 6, creatinine 0.4, glucose 108, lactic acid 1.5, total bilirubin 0.7, AST 26, ALT 19, alk phos 163, lipase 171. CT of the abdomen pelvis with oral and IV contrast shows mild
distention of focal loop of small bowel in the left mid abdomen, filled with oral contrast, consistent with stenosis of the anastomosis related to the patient's previous gastric bypass. There is no other evidence to suggest bowel obstruction. No
free air. No free fluid or collection. The remainder the exam is unchanged compared to 4 days ago. chest x-ray shows no pneumoperitoneum. No acute pulmonary process identified. Probable mild ectasia of the ascending aorta.
Impression:
Epigastric/periumbilical pain
Gastrojejunal clean-based ulcer (8 mm) 06/07/23 on EGD
Gastric fistula into gastric remnant stomach
Bilious vomiting
Recent right shoulder surgery with prior NSAID (stopped end of May)
Cholelithiasis with normal LFTs, no bile duct dilatation and normal Lipase
Plan:
-Continue Pantoprazole 40 mg BID
-Carafate suspension QID
-Antiemetics prn - gave her one time dose of zofran
-diet low residue/low fat
-if feels improve ok for dc later today - would send with zofran
-has outpatient follow up with Dr. Carrasquillo (EGD and OV) I D/w Dr. Carrasquillo recommended to keep appt as is
Subjective
Subjective
Date of Service: June 12, 2023
abd pain better
having back pain
nausea
tolerated breakfast
Objective
Data Reviewed
Laboratory Data:
Laboratory Results
06/11/23 05:29
06/11/23 05:29
Laboratory Results
Magnesium 1.4 mg/dl (1.6-2.3) L 06/09/23 14:55
Total Bilirubin 0.9 mg/dl (0.2-1.3) 06/11/23 05:29
AST 28 U/L (14-36) 06/11/23 05:29
ALT 20 U/L (0-35) 06/11/23 05:29
Alkaline Phosphatase 171 U/L (38-126) H 06/11/23 05:29
Lipase 171 U/L (23-300) 06/09/23 14:55
Vital Signs and I&O:
Vital Signs
Temp Pulse Resp BP Pulse Ox
97.7 F 85 16 142/74 97
06/12/23 07:32 06/12/23 07:32 06/12/23 07:32 06/12/23 07:32 06/12/23 07:32
I&O
06/11/23 06/12/23 06/13/23
06:59 06:59 06:59
Intake Total 1680 / 1680 1200 / 1200
Balance 1680 / 1680 1200 / 1200
Physical Exam
Physical Exam
GI: Non Distended and Non Tender
[2023-06-12] MEDS: ZOFRAN 4 MG PO (09:28)
[2023-06-12] MEDS: DILAUDID 0.5 MG IV ×3 (09:56→20:16)
--- NOTE | 2023-06-12 10:00 | PTCARENOTE ---
Pt complaining of abdominal pain and nausea. Vomited small amount of clear emesis. Zofran po given without relief. Dr. Russo made aware, compazine IV given with moderate relief.
[2023-06-12] MEDS: COMPAZINE 5 MG IV ×2 (11:31→20:18)
[2023-06-12] MEDS: ATIVAN 0.5 MG IV (13:53)
[2023-06-12] MEDS: NSS (PRESERVATIVE FREE) 0.25 ML IV (14:00)
[2023-06-12] MEDS: CARAFATE SUSPENSION PO (14:03)
[2023-06-12 15:52] VITALS: BP 129/71
--- NOTE | 2023-06-12 16:48 | CM ---
Home when stable, no needs.
Plan; Home no needs when stable.
--- NOTE | 2023-06-12 17:54 | W.PN.HOSP.TC ---
Today's Communication/Plan
-
Remains symptomatic with persistent abdominal pain and nausea
Continue attempt of advancing diet
Given recent EGD findings as well as concern for anastomotic stricture, may require intervention with advanced endoscopy prior to discharge.
Assessment / Plan
Assessment / Plan
# Recurrent severe abdominal pain/vomiting secondary to gastrojejunal anastomotic ulcer/esophagitis
# History of gastric bypass
# History of GERD/hiatal hernia
-CT abdomen pelvis shows focal area of small bowel which is distended to 4 cm similar to prior examination. There is postoperative stenosis at this anastomosis
Recent EGD with anastomotic ulcer as well as fistula to the gastric remnant stomach
-Continue Protonix 40 IV twice daily
-Continue Carafate
-CW dicyclomine PRN for pain
-CW IV dilaudid PRN
-GI input noted
- Slow improvement
Essential hypertension
-Continue amlodipine, hydrochlorothiazide, losartan
Hyperlipidemia
-Continue statin
Recent right shoulder surgery
-Patient has been taking Percocet for this
Chronic lower back pain
-Continue Tylenol
Anxiety/depression
-Continue fluoxetine
Constipation
-Continue bowel rest
Moderate protein calorie malnutrition
Full code
DVT prophylaxis�SCDs
Diet per GI
Anticipated Discharge: 24 - 48 hours
Subjective/Interval History
-
Date of Service: June 12, 2023
Objective Data
-
Vital Signs:
Vital Signs
Temp Pulse Resp BP Pulse Ox
98.7 F 91 18 129/71 97
06/12/23 15:52 06/12/23 15:52 06/12/23 15:52 06/12/23 15:52 06/12/23 15:52
I&O
06/11/23 06/12/23 06/13/23
06:59 06:59 06:59
Intake Total 1680 / 1680 1200 / 1200
Balance 1679
Physical Exam
-
General: Well Developed and No Apparent Distress
HEENT: Normocephalic, Atraumatic and Moist Mucous Membranes
Respiratory: Clear to Auscultation
Cardiac: Regular Rhythm and S1/S2; Negative Murmur, Rub or Gallop
GI: Soft, Nontender, Nondistended and Normal Bowel Sounds; Negative Organomegaly
Rectal: Deferred by Provider
Musculoskeletal: No Clubbing, No Cyanosis and No Edema
Skin: Negative Rash
Neuro: Nonfocal/Grossly Intact
[2023-06-12] MEDS: LIPITOR 80 MG PO (22:21)
[2023-06-12] MEDS: COLACE 100 MG PO (22:21)
[2023-06-12] MEDS: SENOKOT 17.1999999999999993 MG PO (22:21)
[2023-06-12] MEDS: ASPIR LOW (ENTERIC COATED) 81 MG PO (22:21)
[2023-06-13] MEDS: CARAFATE SUSPENSION PO (01:38)
[2023-06-13 02:33] VITALS: BP 115/72
[2023-06-13 07:00] VITALS: BP 107/68
[2023-06-13] MEDS: PROTONIX IV 40 MG IV ×2 (08:40→21:46)
[2023-06-13] MEDS: NSS (PRESERVATIVE FREE) 10 ML IV ×2 (08:40→21:46)
[2023-06-13] MEDS: NORVASC 10 MG PO (08:41)
[2023-06-13] MEDS: PROZAC 60 MG PO (08:41)
[2023-06-13] MEDS: CARAFATE SUSPENSION 1 GM PO ×3 (08:41→18:37)
[2023-06-13] MEDS: THERAGRAN 1 TABLET PO (08:41)
[2023-06-13] MEDS: COZAAR 100 MG PO (08:41)
[2023-06-13] MEDS: VITAMIN D3 (cholecalciferol) 25 MCG PO (08:41)
[2023-06-13] MEDS: TYLENOL 1000 MG PO (09:15)
--- NOTE | 2023-06-13 11:47 | W.PN.GI.CBS2 ---
Today's Communication / Plan
-
Symptoms resolved, tolerating a diet. Okay for discharge today from a GI perspective, follow-up scheduled with Dr. Carrasquillo (office visit and EGD).
GI will sign off, please call with questions.
Assessment / Plan
-
72-year-old female with a past medical history significant for GERD, hypertension, gastric bypass surgery in the , PUD, DDD s/p right shoulder surgery 2 weeks ago, hyperlipidemia, who was recently hospitalized 06/06/23 with N/V and abdominal
pain and had EGD performed on 06/07/23 that showed white nummular lesions noted in the middle third of the esophagus. 3 cm hiatal hernia. Evidence of gastric bypass. Gastric pouch. Evidence of clean-based ulcer, measuring 8 mm at the gastrojejunal
anastomosis. The jejunal jejunal anastomosis was characterized by healthy-appearing mucosa. Excluded stomach was not examined. Evidence of gastric fistula present within the superior gastric body measuring 1 cm which led to the excluded remnant
stomach. The patient was started on pantoprazole 40 mg twice daily and Carafate suspension 4 times a day and was able to be discharged on 06/08/2023. She comes in with WBC 7.8, hemoglobin 11.8 (11.2 on discharge) hematocrit 34.2, platelets 495,
sodium 133, potassium 3.3 (up from 3.1) chloride 95, CO2 29, BUN 6, creatinine 0.4, glucose 108, lactic acid 1.5, total bilirubin 0.7, AST 26, ALT 19, alk phos 163, lipase 171. CT of the abdomen pelvis with oral and IV contrast shows mild
distention of focal loop of small bowel in the left mid abdomen, filled with oral contrast, consistent with stenosis of the anastomosis related to the patient's previous gastric bypass. There is no other evidence to suggest bowel obstruction. No
free air. No free fluid or collection. The remainder the exam is unchanged compared to 4 days ago. chest x-ray shows no pneumoperitoneum. No acute pulmonary process identified. Probable mild ectasia of the ascending aorta.
Impression:
Epigastric/periumbilical pain
Gastrojejunal clean-based ulcer (8 mm) 06/07/23 on EGD
Gastric fistula into gastric remnant stomach
Bilious vomiting
Recent right shoulder surgery with prior NSAID (stopped end of May)
Cholelithiasis w/o biliary duct dilatation, isolated elevation in alkaline phosphatase- new since 05/06, no labs since 06/10, but given clinical improvement, will repeat as outpatient see if resolves once she undergoes endoscopic repair
Plan:
-Continue Pantoprazole 40 mg BID
-Carafate suspension QID
-Antiemetics prn
-diet low residue/low fat
-clinically feels well, okay for dischage from GI perspective.
-if feels improve ok for dc later today - would send with zhane
-has outpatient follow-up with Dr. Carrasquillo, both endoscopy and office visit scheduled
Subjective
Subjective
Date of Service: June 13, 2023
Patient seen in follow-up today, reports feeling significantly better. She is currently eating a yogurt, denies any abdominal pain and nausea.
Objective
Data Reviewed
Laboratory Data:
Laboratory Results
06/11/23 05:29
06/11/23 05:29
Laboratory Results
Magnesium 1.4 mg/dl (1.6-2.3) L 06/09/23 14:55
Total Bilirubin 0.9 mg/dl (0.2-1.3) 06/11/23 05:29
AST 28 U/L (14-36) 06/11/23 05:29
ALT 20 U/L (0-35) 06/11/23 05:29
Alkaline Phosphatase 171 U/L (38-126) H 06/11/23 05:29
Lipase 171 U/L (23-300) 06/09/23 14:55
Vital Signs and I&O:
Vital Signs
Temp Pulse Resp BP Pulse Ox
98.0 F 96 18 107/68 98
06/13/23 07:00 06/13/23 07:00 06/13/23 07:00 06/13/23 07:00 06/13/23 07:00
I&O
06/12/23 06/13/23 06/14/23
06:59 06:59 06:59
Intake Total 1200 / 1200 480 / 480
Balance 1200 / 1200 480 / 480
Physical Exam
Physical Exam
HEENT: Anicteric and Moist mucous membranes
GI: Non Distended and Non Tender
Extremities: No Edema
Neuro: Non Focal
[2023-06-13] MEDS: COMPAZINE 5 MG IV (12:22)
--- NOTE | 2023-06-13 12:44 | CM ---
Chart reviewed and plan is to home when stable.
Plan; Home when stable.
[2023-06-13 15:00] VITALS: BP 188/103
[2023-06-13] MEDS: DILAUDID IV (15:10)
--- NOTE | 2023-06-13 15:58 | W.PN.HOSP.TC ---
Today's Communication/Plan
-
Persistent abdominal pain
With concern for possible anastomotic stricture seen on EGD, plan for additional imaging with esophagogram and small bowel follow-through
Continue PPI
Continue current analgesic regimen.
Diet has been advanced.
Assessment / Plan
Assessment / Plan
# Recurrent severe abdominal pain/vomiting secondary to gastrojejunal anastomotic ulcer/esophagitis
# History of gastric bypass
# History of GERD/hiatal hernia
-CT abdomen pelvis shows focal area of small bowel which is distended to 4 cm similar to prior examination. There is postoperative stenosis at this anastomosis
Recent EGD with anastomotic ulcer as well as fistula to the gastric remnant stomach.
-Remains symptomatic with persistent mostly postprandial abdominal pain.
-Discussed with gastroenterology. Plan is for esophagogram with small bowel follow-through.
-Continue Protonix 40 IV twice daily
-Continue Carafate
-CW dicyclomine PRN for pain
-CW IV dilaudid PRN
-GI input noted
- Slow improvement
Essential hypertension
-Continue amlodipine, hydrochlorothiazide, losartan
Hyperlipidemia
-Continue statin
Recent right shoulder surgery
-Patient has been taking Percocet for this
Chronic lower back pain
-Continue Tylenol
Anxiety/depression
-Continue fluoxetine
Constipation
-Continue bowel rest
Moderate protein calorie malnutrition
Full code
DVT prophylaxis�SCDs
Diet per GI
Anticipated Discharge: > 48 hours
Subjective/Interval History
-
Date of Service: June 13, 2023
Objective Data
-
Vital Signs:
Vital Signs
Temp Pulse Resp BP Pulse Ox
98.0 F 96 18 107/68 98
06/13/23 07:00 06/13/23 07:00 06/13/23 07:00 06/13/23 07:00 06/13/23 07:00
I&O
06/12/23 06/13/23 06/14/23
06:59 06:59 06:59
Intake Total 1200 / 1200 480 / 480
Balance 1200 / 1200 480 / 480
Physical Exam
-
General: Well Developed and No Apparent Distress
HEENT: Normocephalic, Atraumatic and Moist Mucous Membranes
Respiratory: Clear to Auscultation
Cardiac: Regular Rhythm and S1/S2; Negative Murmur, Rub or Gallop
GI: Soft, Nontender, Nondistended and Normal Bowel Sounds; Negative Organomegaly
Rectal: Deferred by Provider
Musculoskeletal: No Clubbing, No Cyanosis and No Edema
Skin: Negative Rash
Neuro: Nonfocal/Grossly Intact
[2023-06-13] MEDS: DILAUDID 0.5 MG IV ×2 (17:03→21:46)
[2023-06-13] MEDS: ATIVAN 0.5 MG PO (18:05)
[2023-06-13] MEDS: SENOKOT 17.1999999999999993 MG PO (21:57)
[2023-06-13] MEDS: LIPITOR 80 MG PO (21:57)
[2023-06-13] MEDS: ASPIR LOW (ENTERIC COATED) 81 MG PO (21:57)
[2023-06-13] MEDS: COLACE 100 MG PO (21:57)
[2023-06-13 23:02] VITALS: BP 120/68
[2023-06-14] MEDS: ATIVAN 0.5 MG PO (00:21)
[2023-06-14] MEDS: CARAFATE SUSPENSION 1 GM PO ×4 (00:21→17:12)
[2023-06-14] MEDS: TYLENOL 1000 MG PO ×2 (03:55→15:21)
[2023-06-14] MEDS: DILAUDID 0.5 MG IV ×2 (05:13→20:37)
[2023-06-14 07:00] VITALS: BP 147/83
[2023-06-14] MEDS: PROZAC 60 MG PO (09:07)
[2023-06-14] MEDS: NORVASC 10 MG PO (09:07)
[2023-06-14] MEDS: COZAAR 100 MG PO (09:07)
[2023-06-14] MEDS: THERAGRAN 1 TABLET PO (09:07)
[2023-06-14] MEDS: VITAMIN D3 (cholecalciferol) 25 MCG PO (09:07)
[2023-06-14] MEDS: NSS (PRESERVATIVE FREE) 10 ML IV ×2 (09:08→20:37)
[2023-06-14] MEDS: PROTONIX IV 40 MG IV ×2 (09:08→20:37)
--- NOTE | 2023-06-14 09:30 | W.PN.GI.CBS2 ---
Today's Communication / Plan
-
UGI w/ SBFT today. Plan for EGD w/ Dr. Carrasquillo tomorrow. Workup isolated elevation in alk phos.
Assessment / Plan
-
72-year-old female with a past medical history significant for GERD, hypertension, gastric bypass surgery in the , PUD, DDD s/p right shoulder surgery 2 weeks ago, hyperlipidemia, who was recently hospitalized 06/06/23 with N/V and abdominal
pain and had EGD performed on 06/07/23 that showed white nummular lesions noted in the middle third of the esophagus. 3 cm hiatal hernia. Evidence of gastric bypass. Gastric pouch. Evidence of clean-based ulcer, measuring 8 mm at the gastrojejunal
anastomosis. The jejunal jejunal anastomosis was characterized by healthy-appearing mucosa. Excluded stomach was not examined. Evidence of gastric fistula present within the superior gastric body measuring 1 cm which led to the excluded remnant
stomach. The patient was started on pantoprazole 40 mg twice daily and Carafate suspension 4 times a day and was able to be discharged on 06/08/2023. She comes in with WBC 7.8, hemoglobin 11.8 (11.2 on discharge) hematocrit 34.2, platelets 495,
sodium 133, potassium 3.3 (up from 3.1) chloride 95, CO2 29, BUN 6, creatinine 0.4, glucose 108, lactic acid 1.5, total bilirubin 0.7, AST 26, ALT 19, alk phos 163, lipase 171. CT of the abdomen pelvis with oral and IV contrast shows mild
distention of focal loop of small bowel in the left mid abdomen, filled with oral contrast, consistent with stenosis of the anastomosis related to the patient's previous gastric bypass. There is no other evidence to suggest bowel obstruction. No
free air. No free fluid or collection. The remainder the exam is unchanged compared to 4 days ago. chest x-ray shows no pneumoperitoneum. No acute pulmonary process identified. Probable mild ectasia of the ascending aorta.
Impression:
Epigastric/periumbilical pain
Gastrojejunal clean-based ulcer (8 mm) 5/1/24 on EGD
Gastric fistula into gastric remnant stomach
Bilious vomiting
Recent right shoulder surgery with prior NSAID (stopped end of May)
Cholelithiasis w/o biliary duct dilatation, isolated elevation in alkaline phosphatase- new since 05/06, no labs since 06/10, but given clinical improvement, will repeat as outpatient see if resolves once she undergoes endoscopic repair
Plan:
-Continue Pantoprazole 40 mg BID
-Carafate suspension QID
-Antiemetics prn
-isolated elevation in alk phos-- recheck LFTs in AM along with GGT, alk phos isoenzymes, AMA
-NPO for UGI series w/ SBFT today
-tentative plans for EGD with exploration of remnant stomach and possible fistula closure with Dr. Carrasquillo tomorrow
Subjective
Subjective
Date of Service: June 14, 2023
Patient planned for discharge yesterday, however, kept overnight after experiencing recurrence of severe pain and nausea. This morning, she feels well, endorses an appetite. For full details please refer to procedure report.
Objective
Data Reviewed
Laboratory Data:
Laboratory Results
06/11/23 05:29
06/11/23 05:29
Laboratory Results
Magnesium 1.4 mg/dl (1.6-2.3) L 06/09/23 14:55
Total Bilirubin 0.9 mg/dl (0.2-1.3) 06/11/23 05:29
AST 28 U/L (14-36) 06/11/23 05:29
ALT 20 U/L (0-35) 06/11/23 05:29
Alkaline Phosphatase 171 U/L (38-126) H 06/11/23 05:29
Lipase 171 U/L (23-300) 06/09/23 14:55
Vital Signs and I&O:
Vital Signs
Temp Pulse Resp BP Pulse Ox
98.1 F 88 18 147/83 97
06/14/23 07:00 06/14/23 07:00 06/14/23 07:00 06/14/23 07:00 06/14/23 07:00
I&O
06/13/23 06/14/23 06/15/23
06:59 06:59 06:59
Intake Total 480 / 480 840 / 840
Balance 480 / 480 840 / 840
Physical Exam
Physical Exam
HEENT: Anicteric and Moist mucous membranes
GI: Non Distended and Tender (mild focal tenderness to palpation in epigastric area. No rebound or guarding. +BS)
Extremities: No Edema
Neuro: Non Focal
[2023-06-14 15:00] VITALS: BP 109/75
--- NOTE | 2023-06-14 16:19 | CM ---
construction sales manager reviewed patient's chart and patient has switched to inpatient, IMM was given on 06/09/23. Patient to return to home when stable.
Plan; Home when stable.
--- NOTE | 2023-06-14 16:51 | W.PN.HOSP.TC ---
Today's Communication/Plan
-
Continue current treatment with PPI and Carafate.
Diet has been advanced
N.p.o. postmidnight for EGD.
Assessment / Plan
Assessment / Plan
# Recurrent severe abdominal pain/vomiting secondary to gastrojejunal anastomotic ulcer/esophagitis
# History of gastric bypass
# History of GERD/hiatal hernia
-CT abdomen pelvis shows focal area of small bowel which is distended to 4 cm similar to prior examination. There is postoperative stenosis at this anastomosis
Recent EGD with anastomotic ulcer as well as fistula to the gastric remnant stomach.
-Remains symptomatic with persistent mostly postprandial abdominal pain.
-Upper GI series on 06/13 findings consistent with gastric bypass with communication with the gastric pouch and excluded stomach along the superior border with no extravasation. Mild smooth narrowing at the anastomosis of the small bowel distally
with no obstruction. No inflammatory stranding or change in appearance of the bowel loops. Distal small bowel loops are normal in caliber. Incidental finding of a small 1 cm duodenal diverticulum.
-Continue Protonix 40 IV twice daily
-Continue Carafate
-CW dicyclomine PRN for pain
-CW IV dilaudid PRN
-GI input noted
-For repeat EGD on 06/14
Essential hypertension
-Continue amlodipine, hydrochlorothiazide, losartan
Hyperlipidemia
-Continue statin
Recent right shoulder surgery
-Patient has been taking Percocet for this
Chronic lower back pain
-Continue Tylenol
Anxiety/depression
-Continue fluoxetine
Constipation
-Continue bowel rest
Moderate protein calorie malnutrition
Full code
DVT prophylaxis�SCDs
Diet per GI
Anticipated Discharge: 24 - 48 hours
Subjective/Interval History
-
Date of Service: June 14, 2023
Objective Data
-
Vital Signs:
Vital Signs
Temp Pulse Resp BP Pulse Ox
98.1 F 88 18 147/83 97
06/14/23 07:00 06/14/23 07:00 06/14/23 07:00 06/14/23 07:00 06/14/23 07:00
I&O
06/13/23 06/14/23 06/15/23
06:59 06:59 06:59
Intake Total 480 / 480 840 / 840
Balance 480 / 480 840 / 840
Physical Exam
-
General: Well Developed and No Apparent Distress
HEENT: Normocephalic, Atraumatic and Moist Mucous Membranes
Respiratory: Clear to Auscultation
Cardiac: Regular Rhythm and S1/S2; Negative Murmur, Rub or Gallop
GI: Soft, Nontender, Nondistended and Normal Bowel Sounds; Negative Organomegaly
Rectal: Deferred by Provider
Musculoskeletal: No Clubbing, No Cyanosis and No Edema
Skin: Negative Rash
Neuro: Nonfocal/Grossly Intact
[2023-06-14] MEDS: LIPITOR 80 MG PO (20:37)
[2023-06-14] MEDS: ASPIR LOW (ENTERIC COATED) 81 MG PO (20:37)
[2023-06-14] MEDS: SENOKOT 17.1999999999999993 MG PO (20:37)
[2023-06-14] MEDS: COLACE 100 MG PO (20:38)
[2023-06-14 23:17] VITALS: BP 124/60
[2023-06-15] MEDS: CARAFATE SUSPENSION 1 GM PO ×4 (00:12→17:09)
[2023-06-15] MEDS: MELATONIN 5 MG PO ×2 (01:01→21:44)
[2023-06-15 07:00] VITALS: BP 114/74
[2023-06-15 07:02] LABS: ALT (SGPT) 16 U/L (0-35); AST (SGOT) 23 U/L (14-36); Albumin 3.3 g/dl (3.5-5.0); Alkaline Phosphatase 120 U/L (38-126); Alkaline Phosphatase, Total 120 U/L (38-126); Blood Urea Nitrogen 11 mg/dl (7-17); Calcium 9.3 mg/dl (8.4-10.2); Carbon Dioxide 28 mmol/L (22-30); Chloride 98 mmol/L (98-107); Estimated Creatinine Clearance 98 ml/min; GGTP 73 U/L (12-43); Glucose 88 mg/dl (70-99); Potassium 3.1 mmol/L (3.5-5.1); Sodium 129 mmol/L (135-145); Total Bilirubin 0.8 mg/dl (0.2-1.3); Total Protein 5.6 g/dl (6.3-8.2); eGFR > 60.00
[2023-06-15] MEDS: THERAGRAN 1 TABLET PO (08:51)
[2023-06-15] MEDS: NORVASC 10 MG PO (08:51)
[2023-06-15] MEDS: PROZAC 60 MG PO (08:51)
[2023-06-15] MEDS: COZAAR 100 MG PO (08:51)
[2023-06-15] MEDS: VITAMIN D3 (cholecalciferol) 25 MCG PO (08:51)
[2023-06-15] MEDS: PROTONIX IV 40 MG IV ×2 (08:51→20:06)
[2023-06-15] MEDS: NSS (PRESERVATIVE FREE) 10 ML IV ×2 (08:52→20:06)
[2023-06-15] MEDS: TYLENOL 1000 MG PO ×2 (11:28→20:06)
--- NOTE | 2023-06-15 14:22 | W.PN.GI.CBS2 ---
Today's Communication / Plan
-
EGD deferred to outpatient. Advance diet, okay to discharge from GI perspective.
Assessment / Plan
-
72-year-old female with a past medical history significant for GERD, hypertension, gastric bypass surgery in the , PUD, DDD s/p right shoulder surgery 2 weeks ago, hyperlipidemia, who was recently hospitalized 06/06/23 with N/V and abdominal
pain and had EGD performed on 06/07/23 that showed white nummular lesions noted in the middle third of the esophagus. 3 cm hiatal hernia. Evidence of gastric bypass. Gastric pouch. Evidence of clean-based ulcer, measuring 8 mm at the gastrojejunal
anastomosis. The jejunal jejunal anastomosis was characterized by healthy-appearing mucosa. Excluded stomach was not examined. Evidence of gastric fistula present within the superior gastric body measuring 1 cm which led to the excluded remnant
stomach. The patient was started on pantoprazole 40 mg twice daily and Carafate suspension 4 times a day and was able to be discharged on 06/08/2023. She comes in with WBC 7.8, hemoglobin 11.8 (11.2 on discharge) hematocrit 34.2, platelets 495,
sodium 133, potassium 3.3 (up from 3.1) chloride 95, CO2 29, BUN 6, creatinine 0.4, glucose 108, lactic acid 1.5, total bilirubin 0.7, AST 26, ALT 19, alk phos 163, lipase 171. CT of the abdomen pelvis with oral and IV contrast shows mild
distention of focal loop of small bowel in the left mid abdomen, filled with oral contrast, consistent with stenosis of the anastomosis related to the patient's previous gastric bypass. There is no other evidence to suggest bowel obstruction. No
free air. No free fluid or collection. The remainder the exam is unchanged compared to 4 days ago. chest x-ray shows no pneumoperitoneum. No acute pulmonary process identified. Probable mild ectasia of the ascending aorta.
UGI Series w/ SBFT (06/14/23): s/p gastric bypass and evidence of communication with the gastric pouch and the excluded stomach along the superior border. No extravasation.Mild smooth narrowing at the anastomosis of the small bowel distally, no
obstruction. No inflammatory stranding or change in appearance of the bowel loops. Distal small bowel loops are normal caliber. Incidental note is made of a small 1 cm duodenal diverticulum. No ulceration. There is a small plum size hiatal hernia
and a small amount of gastroesophageal reflux during the exam.
Impression:
Epigastric/periumbilical pain
Gastrojejunal clean-based ulcer (8 mm) 06/07/23 on EGD
Gastric fistula into gastric remnant stomach
Bilious vomiting
Recent right shoulder surgery with prior NSAID (stopped end of May)
Cholelithiasis w/o biliary duct dilatation, isolated elevation in alkaline phosphatase
Plan:
-Continue Pantoprazole 40 mg BID
-Carafate suspension QID
-Antiemetics prn
-isolated elevation in alk phos, resolved, elevated GGT. AMA pending-- consider [facility] if no improvement in symptoms after outpatient EGD w/ Dr. Carrasquillo
-advance diet, okay for discharge if patient tolerates
-outpatient EGD with Dr. Carrasquillo, as previously scheduled
Subjective
Subjective
Date of Service: June 15, 2023
Patient seen in follow-up today, reports no abdominal pain or nausea in the last 24 hours. After discussing the case with Dr. Carrasquillo again, EGD deferred to planned outpatient EGD on 06/27. It is unclear whether or not this gastric fistula is the
etiology of her symptoms, and was just diagnosed with a marginal ulcer in setting of NSAID use, so this could also be contributing. Discussed with patient that if she tolerates her lunch, she is okay for discharge today.
Objective
Data Reviewed
Laboratory Data:
Laboratory Results
06/11/23 05:29
06/15/23 05:43
Laboratory Results
Magnesium 1.4 mg/dl (1.6-2.3) L 06/09/23 14:55
Total Bilirubin 0.8 mg/dl (0.2-1.3) 06/15/23 05:43
AST 23 U/L (14-36) 06/15/23 05:43
ALT 16 U/L (0-35) 06/15/23 05:43
Alkaline Phosphatase 120 U/L (38-126) 06/15/23 05:43
Lipase 171 U/L (23-300) 06/09/23 14:55
Vital Signs and I&O:
Vital Signs
Temp Pulse Resp BP Pulse Ox
97.9 F 77 12 114/74 99
06/15/23 07:00 06/15/23 07:00 06/15/23 07:00 06/15/23 07:00 06/15/23 08:50
I&O
06/14/23 06/15/23 06/16/23
06:59 06:59 06:59
Intake Total 840 / 840 960 / 960
Balance 840 / 840 960 / 960
Physical Exam
Physical Exam
HEENT: Anicteric and Moist mucous membranes
GI: Non Distended and Tender (mild focal tenderness to palpation in epigastric area. No rebound or guarding. +BS)
Extremities: No Edema
Neuro: Non Focal
[2023-06-15 15:00] VITALS: BP 106/66
--- NOTE | 2023-06-15 16:33 | W.PN.HOSP.TC ---
Today's Communication/Plan
-
Attempt to advance diet today with episode of emesis shortly after oral intake.
May required endoscopic evaluation while inpatient.
Assessment / Plan
Assessment / Plan
# Recurrent severe abdominal pain/vomiting secondary to gastrojejunal anastomotic ulcer/esophagitis
# History of gastric bypass
# History of GERD/hiatal hernia
-CT abdomen pelvis shows focal area of small bowel which is distended to 4 cm similar to prior examination. There is postoperative stenosis at this anastomosis
Recent EGD with anastomotic ulcer as well as fistula to the gastric remnant stomach.
-Remains symptomatic with persistent mostly postprandial abdominal pain.
-Upper GI series on 06/13 findings consistent with gastric bypass with communication with the gastric pouch and excluded stomach along the superior border with no extravasation. Mild smooth narrowing at the anastomosis of the small bowel distally
with no obstruction. No inflammatory stranding or change in appearance of the bowel loops. Distal small bowel loops are normal in caliber. Incidental finding of a small 1 cm duodenal diverticulum.
-Continue Protonix 40 IV twice daily
-Continue Carafate
-CW dicyclomine PRN for pain
-CW IV dilaudid PRN
-GI input noted
-
Essential hypertension
-Continue amlodipine, hydrochlorothiazide, losartan
Hyperlipidemia
-Continue statin
Recent right shoulder surgery
-Patient has been taking Percocet for this
Chronic lower back pain
-Continue Tylenol
Anxiety/depression
-Continue fluoxetine
Constipation
-Continue bowel rest
Moderate protein calorie malnutrition
Full code
DVT prophylaxis�SCDs
Diet per GI
Anticipated Discharge: 24 - 48 hours
Subjective/Interval History
-
Date of Service: June 15, 2023
Objective Data
-
Labs:
Laboratory Results
06/15/23
05:43
Sodium 129 L
Potassium 3.1 L
Chloride 98
Carbon Dioxide 28
BUN 11
Creatinine 0.5 L
Glucose 88
Calcium 9.3
Total Bilirubin 0.8
AST 23
ALT 16
Alkaline Phosphatase 120
Vital Signs:
Vital Signs
Temp Pulse Resp BP Pulse Ox
98.2 F 80 16 106/66 99
06/15/23 15:00 06/15/23 15:00 06/15/23 15:00 06/15/23 15:00 06/15/23 15:00
I&O
06/14/23 06/15/23 06/16/23
06:59 06:59 06:59
Intake Total 840 / 840 960 / 960
Balance 840 / 840 960 / 960
Physical Exam
-
General: Well Developed and No Apparent Distress
HEENT: Normocephalic, Atraumatic and Moist Mucous Membranes
Respiratory: Clear to Auscultation
Cardiac: Regular Rhythm and S1/S2; Negative Murmur, Rub or Gallop
GI: Soft, Nontender, Nondistended and Normal Bowel Sounds; Negative Organomegaly
Rectal: Deferred by Provider
Musculoskeletal: No Clubbing, No Cyanosis and No Edema
Skin: Negative Rash
Neuro: Nonfocal/Grossly Intact
[2023-06-15] MEDS: DILAUDID 0.5 MG IV ×2 (17:10→21:16)
[2023-06-15] MEDS: ATIVAN 0.5 MG PO (17:39)
[2023-06-15] MEDS: BENTYL 10 MG PO (20:07)
[2023-06-15 21:12] LABS: Alk Phos After Heat 120
[2023-06-15] MEDS: LIPITOR 80 MG PO (21:15)
[2023-06-15] MEDS: SENOKOT 17.1999999999999993 MG PO (21:15)
[2023-06-15] MEDS: COLACE 100 MG PO (21:15)
[2023-06-15] MEDS: ASPIR LOW (ENTERIC COATED) 81 MG PO (21:15)
[2023-06-15] MEDS: ZOFRAN 4 MG IV (21:27)
[2023-06-15 23:30] VITALS: BP 156/86
[2023-06-16] MEDS: CARAFATE SUSPENSION 1 GM PO ×5 (00:06→23:42)
[2023-06-16] MEDS: ATIVAN 0.5 MG PO ×2 (00:06→22:42)
[2023-06-16] MEDS: COMPAZINE 5 MG IV (01:32)
[2023-06-16] MEDS: DILAUDID 0.5 MG IV (01:32)
[2023-06-16 07:00] VITALS: BP 115/67
[2023-06-16] MEDS: NORVASC 10 MG PO (08:37)
[2023-06-16] MEDS: VITAMIN D3 (cholecalciferol) 25 MCG PO (08:37)
[2023-06-16] MEDS: THERAGRAN 1 TABLET PO (08:37)
[2023-06-16] MEDS: PROZAC 60 MG PO (08:37)
[2023-06-16] MEDS: COZAAR 100 MG PO (08:37)
[2023-06-16] MEDS: NSS (PRESERVATIVE FREE) 10 ML IV ×2 (08:37→20:16)
[2023-06-16] MEDS: PROTONIX IV 40 MG IV ×2 (08:37→20:16)
--- NOTE | 2023-06-16 11:14 | W.PN.GI.CBS2 ---
Today's Communication / Plan
-
Check HIDA
Assessment / Plan
-
72-year-old female with a past medical history significant for GERD, hypertension, gastric bypass surgery in the , PUD, recent right shoulder surgery for DDD, HLD readmitted for ongoing abdominal pain, nausea and vomiting.
She was recently hospitalized 06/06/23 with N/V and abdominal pain and had EGD performed on 06/07/23 which was significant for a clean-based ulcer at the gastrojejunal anastomosis, the remnant stomach was not explored via the fistula, however, this was
seen on EGD by Dr. Arenas, back in January. She is scheduled to have her fistula closed via endosuture with Dr. Carrasquillo on 06/27, however, represents for recurring symptoms.
CT of the abdomen pelvis with oral and IV contrast shows mild distention of focal loop of small bowel in the left mid abdomen, filled with oral contrast, consistent with stenosis of the anastomosis related to the patient's previous gastric bypass.
There is no other evidence to suggest bowel obstruction. No free air. No free fluid or collection. The remainder the exam is unchanged compared to 4 days ago. chest x-ray shows no pneumoperitoneum. No acute pulmonary process identified.
Probable mild ectasia of the ascending aorta.
UGI Series w/ SBFT (06/14/23): s/p gastric bypass and evidence of communication with the gastric pouch and the excluded stomach along the superior border. No extravasation.Mild smooth narrowing at the anastomosis of the small bowel distally, no
obstruction. No inflammatory stranding or change in appearance of the bowel loops. Distal small bowel loops are normal caliber. Incidental note is made of a small 1 cm duodenal diverticulum. No ulceration. There is a small plum size hiatal hernia
and a small amount of gastroesophageal reflux during the exam.
Impression
Epigastric/periumbilical pain
Gastrojejunal clean-based ulcer (8 mm) 06/07/23 on EGD
Gastric fistula into gastric remnant stomach
Bilious vomiting
Recent right shoulder surgery with prior NSAID (stopped end of May)
Cholelithiasis w/o biliary duct dilatation, isolated elevation in alkaline phosphatase
Plan: I am not sure her abdominal pain can be explained by the presence of her gastric fistula, but certainly early satiety, nausea and vomiting could be due to this. That said, closing the fistula will not necessarily 'cure' her abdominal pain. I
discussed this possibility with patient and her , who are understandably frustrated by the lack of answers and lasting relief she has been getting, requiring readmission and inability to be discharged. I raised the possibility of her ulcers
causing her pain, which is very possible, but also, she has gallstones seen on imaging, and she may be experiencing biliary colic. She had a persistently elevated alkaline phosphatase, reaching levels >200, which was new in April and persistent
until it normalized yesterday. GGT was also elevated.
-Check HIDA ([facility] contraindicated in setting of gallstones)
-Continue Pantoprazole 40 mg BID
-Carafate suspension QID
-Antiemetics prn
-slowly advancing diet, starting on liquids first, as she seems to tolerate this okay, but struggles with solids
-depending on findings from HIDA, will discuss with Dr. Carrasquillo if EGD can be arranged for Monday, pending rep availability required to complete the procedure
Subjective
Subjective
Date of Service: June 16, 2023
Patient seen in follow-up, tolerating liquids at this time without nausea. Discharge was cancelled last night after she ate chicken tenders and noodles, vomited shortly after. It remains unclear if all of her sympotms are truly due to her known
gastric fistula, as her main issue that brings her to the hospital is excruciating abdominal pain, which I do not feel is 2/2 fistula. I discussed at length with patient and her over the phone, as well as other etiologies, such as her known
marginal ulcer, recently diagnosed in the setting of NSAID use, as well as the possibility of symptomatic cholelithiasis.
Vital signs stable, labs unremarkable, with resolution of elevated alk phos.
Objective
Data Reviewed
Laboratory Data:
Laboratory Results
06/11/23 05:29
Laboratory Results
Magnesium 1.4 mg/dl (1.6-2.3) L 06/09/23 14:55
Total Bilirubin 0.8 mg/dl (0.2-1.3) 06/15/23 05:43
AST 23 U/L (14-36) 06/15/23 05:43
ALT 16 U/L (0-35) 06/15/23 05:43
Alkaline Phosphatase 120 U/L (38-126) 06/15/23 05:43
Lipase 171 U/L (23-300) 06/09/23 14:55
Vital Signs and I&O:
Vital Signs
Temp Pulse Resp BP Pulse Ox
97.7 F 70 12 115/67 98
06/16/23 07:00 06/16/23 07:00 06/16/23 07:00 06/16/23 07:00 06/16/23 07:00
I&O
06/15/23 06/16/23 06/17/23
06:59 06:59 06:59
Intake Total 960 / 960 480 / 480
Balance 960 / 960 480 / 480
Physical Exam
Physical Exam
HEENT: Anicteric and Moist mucous membranes
GI: Non Distended and Tender (mild focal tenderness to palpation in epigastric area. No rebound or guarding. +BS)
Extremities: No Edema
Neuro: Non Focal
[2023-06-16 11:24] LABS: Blood Urea Nitrogen 11 mg/dl (7-17); Calcium 9.4 mg/dl (8.4-10.2); Carbon Dioxide 28 mmol/L (22-30); Chloride 97 mmol/L (98-107); Estimated Creatinine Clearance 98 ml/min; Glucose 138 mg/dl (70-99); Potassium 2.8 mmol/L (3.5-5.1); Sodium 131 mmol/L (135-145); eGFR > 60.00
--- NOTE | 2023-06-16 14:15 | CM ---
Chart reviewed and patient to return to home when stable.
Plan; Home when stable.
[2023-06-16] MEDS: D5/0.9% with KCL 40 MEQ 1000 IV (15:36)
--- NOTE | 2023-06-16 15:56 | W.PN.HOSP.TC ---
Today's Communication/Plan
-
Clear liquid diet trial.
PPI/Carafate.
Increase Dilaudid.
IV fluids with potassium. Follow BMP
Tentatively for repeat upper endoscopy on 06/18.
Assessment / Plan
Assessment / Plan
# Recurrent severe abdominal pain/vomiting secondary to gastrojejunal anastomotic ulcer/esophagitis
# History of gastric bypass
# History of GERD/hiatal hernia
-CT abdomen pelvis shows focal area of small bowel which is distended to 4 cm similar to prior examination. There is postoperative stenosis at this anastomosis
Recent EGD with anastomotic ulcer as well as fistula to the gastric remnant stomach.
-Remains symptomatic with persistent mostly postprandial abdominal pain.
-Upper GI series on 06/13 findings consistent with gastric bypass with communication with the gastric pouch and excluded stomach along the superior border with no extravasation. Mild smooth narrowing at the anastomosis of the small bowel distally
with no obstruction. No inflammatory stranding or change in appearance of the bowel loops. Distal small bowel loops are normal in caliber. Incidental finding of a small 1 cm duodenal diverticulum.
-Continue Protonix 40 IV twice daily
-Continue Carafate
-CW dicyclomine PRN for pain
-CW IV dilaudid PRN
Cholelithiasis with no clinical or radiologic evidence of acute cholecystitis. HIDA scan normal.
Hypovolemic hyponatremia
Hypokalemia
Mild with limited oral intake, start normal saline with potassium.
Follow BMP.
-
Essential hypertension
-Continue amlodipine, hydrochlorothiazide, losartan
Hyperlipidemia
-Continue statin
Recent right shoulder surgery
-Patient has been taking Percocet for this
Chronic lower back pain
-Continue Tylenol
Anxiety/depression
-Continue fluoxetine
Constipation
-Continue bowel rest
Moderate protein calorie malnutrition
Full code
DVT prophylaxis�SCDs
Diet per GI
Anticipated Discharge: > 48 hours
Subjective/Interval History
-
Date of Service: June 16, 2023
Objective Data
-
Labs:
Laboratory Results
06/16/23
10:54
Sodium 131 L
Potassium 2.8 L
Chloride 97 L
Carbon Dioxide 28
BUN 11
Creatinine 0.5 L
Glucose 138 H
Calcium 9.4
Vital Signs:
Vital Signs
Temp Pulse Resp BP Pulse Ox
97.7 F 70 12 115/67 98
06/16/23 07:00 06/16/23 07:00 06/16/23 07:00 06/16/23 07:00 06/16/23 07:00
I&O
06/15/23 06/16/23 06/17/23
06:59 06:59 06:59
Intake Total 960 / 960 480 / 480
Balance 960 / 960 480 / 480
Physical Exam
-
General: Well Developed and No Apparent Distress
HEENT: Normocephalic, Atraumatic and Moist Mucous Membranes
Respiratory: Clear to Auscultation
Cardiac: Regular Rhythm and S1/S2; Negative Murmur, Rub or Gallop
GI: Soft, Nontender, Nondistended and Normal Bowel Sounds; Negative Organomegaly
Rectal: Deferred by Provider
Musculoskeletal: No Clubbing, No Cyanosis and No Edema
Skin: Negative Rash
Neuro: Nonfocal/Grossly Intact
[2023-06-16] MEDS: TYLENOL 1000 MG PO (18:48)
[2023-06-16] MEDS: DILAUDID 1 MG IV ×2 (20:40→23:42)
[2023-06-16] MEDS: COLACE 100 MG PO (22:42)
[2023-06-16] MEDS: MELATONIN 5 MG PO (22:42)
[2023-06-16] MEDS: SENOKOT 17.1999999999999993 MG PO (22:42)
[2023-06-16] MEDS: LIPITOR 80 MG PO (22:42)
[2023-06-16 23:26] VITALS: BP 155/83
[2023-06-17 01:23] LABS: Mitochondrial M2 Ab, IgG 3.4 Units (0.0-24.9)
[2023-06-17] MEDS: D5/0.9% with KCL 40 MEQ 1000 IV (01:35)
[2023-06-17] MEDS: CARAFATE SUSPENSION 1 GM PO ×3 (06:21→17:06)
[2023-06-17 07:30] VITALS: BP 110/68
[2023-06-17] MEDS: PROZAC 60 MG PO (08:04)
[2023-06-17] MEDS: COZAAR 100 MG PO (08:05)
[2023-06-17] MEDS: THERAGRAN 1 TABLET PO (08:05)
[2023-06-17] MEDS: NORVASC 10 MG PO (08:05)
[2023-06-17] MEDS: TYLENOL 1000 MG PO (08:06)
[2023-06-17] MEDS: NSS (PRESERVATIVE FREE) 10 ML IV ×2 (08:06→20:34)
[2023-06-17] MEDS: PROTONIX IV 40 MG IV ×2 (08:07→20:33)
[2023-06-17] MEDS: VITAMIN D3 (cholecalciferol) 25 MCG PO (08:07)
[2023-06-17 08:17] LABS: Hematocrit 32.3 % (37.0-47.0); Hemoglobin 11.2 g/dL (12.0-16.0); Mean Corp Hgb Conc. 34.7 g/dL (33.0-37.0); Mean Corpuscular Hgb 31.5 pg (27.0-31.0); Mean Platelet Volume 9.7 fL (7.4-10.4); Platelet Count 381 10^3/uL (130-400); Red Blood Cell Count 3.55 10^6/uL (4.20-5.40); Red Cell Dist. Width 12.5 % (11.5-14.5); White Blood Cell Count 6.3 10^3/uL (4.8-10.8)
[2023-06-17 08:55] LABS: Potassium 3.8 mmol/L (3.5-5.1)
[2023-06-17 08:56] LABS: ALT (SGPT) 14 U/L (0-35); AST (SGOT) 22 U/L (14-36); Albumin 3.2 g/dl (3.5-5.0); Alkaline Phosphatase 116 U/L (38-126); Blood Urea Nitrogen 10 mg/dl (7-17); Calcium 9.6 mg/dl (8.4-10.2); Carbon Dioxide 24 mmol/L (22-30); Chloride 104 mmol/L (98-107); Estimated Creatinine Clearance 98 ml/min; Glucose 106 mg/dl (70-99); Sodium 135 mmol/L (135-145); Total Bilirubin 0.6 mg/dl (0.2-1.3); Total Protein 5.6 g/dl (6.3-8.2); eGFR > 60.00
--- NOTE | 2023-06-17 10:37 | W.PN.HOSP.TC ---
Today's Communication/Plan
-
clears
IVF--follow lytes
Assessment / Plan
Assessment / Plan
pt is a 72 year old female
Recurrent severe abdominal pain/vomiting secondary to gastrojejunal anastomotic ulcer/esophagitis--History of gastric bypass--History of GERD/hiatal hernia--CT scan shows postoperative stenosis at anastomosis--Recent EGD with anastomotic ulcer as
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
-Upper GI series on 06/13 findings consistent with gastric bypass with communication with the gastric pouch and excluded stomach along the superior border with no extravasation. Mild smooth narrowing at the anastomosis of the small bowel distally
with no obstruction. No inflammatory stranding or change in appearance of the bowel loops. Distal small bowel loops are normal in caliber. Incidental finding of a small 1 cm duodenal diverticulum--Continue Protonix 40 IV twice daily--consider
changing to PPI drip--cont carafate, dicyclomine PRN for pain--IV dilaudid PRN
Cholelithiasis with no clinical or radiologic evidence of acute cholecystitis. HIDA scan normal.
Hypovolemic hyponatremia/Hypokalemia--Mild with limited oral intake, start normal saline with potassium.
Essential hypertension-Continue amlodipine, hydrochlorothiazide, losartan
Hyperlipidemia-Continue statin
Recent right shoulder surgery-Patient has been taking Percocet for this
Chronic lower back pain-Continue Tylenol
Anxiety/depression-Continue fluoxetine
Constipation-Continue bowel rest
Moderate protein calorie malnutrition
Full code
DVT prophylaxis�SCDs
Anticipated Discharge: > 48 hours
Subjective/Interval History
-
Date of Service: June 17, 2023
pt tolerating clears does not wish to push solid food again after last vomiting episode
Objective Data
-
Labs:
Laboratory Results
06/17/23
07:49
WBC Pending
Hgb Pending
Hct Pending
Plt Count Pending
Sodium 135
Potassium 3.8 D
Chloride 104
Carbon Dioxide 24
BUN 10
Creatinine 0.5 L
Glucose 106 H
Calcium 9.6
Total Bilirubin 0.6
AST 22
ALT 14
Alkaline Phosphatase 116
Vital Signs:
max temp for 24 hours
06/16/23
23:26
Temp 98.3 F
Vital Signs
Temp Pulse Resp BP Pulse Ox
98.6 F 78 19 110/68 93
06/17/23 07:30 06/17/23 07:30 06/17/23 07:30 06/17/23 07:30 06/17/23 07:30
I&O
06/16/23 06/17/23 06/18/23
06:59 06:59 06:59
Intake Total 480 / 480 1380 / 1380
Balance 480 / 480 1380 / 1380
Review of Systems
-
All other systems: Reviewed and negative
Physical Exam
-
General: Well Developed, Well Nourished and No Apparent Distress
HEENT: Normocephalic and Atraumatic
Respiratory: Clear to Auscultation; Negative Wheezes or Rhonchi
Cardiac: Regular Rhythm and S1/S2; Negative Murmur
GI: Soft, Nontender, Nondistended and Normal Bowel Sounds
Musculoskeletal: No Clubbing, No Cyanosis, No Edema and Other (scar right shoulder from shoulder replaement 3 weeks ago)
Skin: Warm
Neuro: Awake
Psych: Calm
--- NOTE | 2023-06-17 10:57 | VATNOTE ---
Upon routine rounds the client pointed out a tender prior IV site in her right antecubital fossa. Area hard, red, indurated, tender to touch with a 6cm palpable cord. Area marked. Afebrile. No swelling of arm noted. Warm blanket applied and K-pad
ordered. Primary care RN made aware. VAT will follow.
[2023-06-17] MEDS: BENTYL 20 MG PO ×3 (12:29→22:20)
--- NOTE | 2023-06-17 12:59 | W.PN.GI.CBS2 ---
Today's Communication / Plan
-
Trial of dicyclomine [id number]
Assessment / Plan
-
72-year-old female with a past medical history significant for GERD, hypertension, gastric bypass surgery in the , PUD, recent right shoulder surgery for DDD, HLD readmitted for ongoing abdominal pain, nausea and vomiting.
She was recently hospitalized 06/06/23 with N/V and abdominal pain and had EGD performed on 06/07/23 which was significant for a clean-based ulcer at the gastrojejunal anastomosis, the remnant stomach was not explored via the fistula, however, this was
seen on EGD by Dr. Arenas, back in January. She is scheduled to have her fistula closed via endosuture with Dr. Carrasquillo on 06/27, however, represents for recurring symptoms.
CT of the abdomen pelvis with oral and IV contrast shows mild distention of focal loop of small bowel in the left mid abdomen, filled with oral contrast, consistent with stenosis of the anastomosis related to the patient's previous gastric bypass.
There is no other evidence to suggest bowel obstruction. No free air. No free fluid or collection. The remainder the exam is unchanged compared to 4 days ago. chest x-ray shows no pneumoperitoneum. No acute pulmonary process identified.
Probable mild ectasia of the ascending aorta.
UGI Series w/ SBFT (06/14/23): s/p gastric bypass and evidence of communication with the gastric pouch and the excluded stomach along the superior border. No extravasation.Mild smooth narrowing at the anastomosis of the small bowel distally, no
obstruction. No inflammatory stranding or change in appearance of the bowel loops. Distal small bowel loops are normal caliber. Incidental note is made of a small 1 cm duodenal diverticulum. No ulceration. There is a small plum size hiatal hernia
and a small amount of gastroesophageal reflux during the exam.
Impression
Epigastric/periumbilical pain
Gastrojejunal clean-based ulcer (8 mm) 06/07/23 on EGD
Gastric fistula into gastric remnant stomach
Bilious vomiting
Recent right shoulder surgery with prior NSAID (stopped end of May)
Cholelithiasis w/o biliary duct dilatation, isolated elevation in alkaline phosphatase
Plan:
Discussed by Dr. White yesterday- her abdominal pain can be explained by the presence of her gastric fistula, but certainly early satiety, nausea and vomiting could be due to this. That said, closing the fistula will not necessarily 'cure' her
abdominal pain. I discussed this possibility with patient and her , who are understandably frustrated by the lack of answers and lasting relief she has been getting, requiring readmission and inability to be discharged. I raised the
possibility of her ulcers causing her pain, which is very possible, but also, she has gallstones seen on imaging, and she may be experiencing biliary colic. She had a persistently elevated alkaline phosphatase, reaching levels >200, which was new in
April and persistent until it normalized yesterday. GGT was also elevated.
HIDA scan without CCK- was normal.
-Trial of dicyclomine 20 mg 3 times daily
-Continue Pantoprazole 40 mg BID
-Antiemetics prn
-Continue clear liquid diet. Okay to advance to full liquid diet if tolerating
-will discuss with Dr. Carrasquillo if EGD can be arranged for Monday or monday , pending rep availability required to complete the procedure . Explained to patient/patient's that the procedure next week Monday or Monday depending on Dr. Carrasquillo's
availability/rep availability. They verbalized understanding.
Total Time Spent with Patient (in minutes): 35
Subjective
Subjective
Date of Service: June 17, 2023
Patient continues to have intermittent upper abdominal pain. Denies any nausea or vomiting. Tolerating liquid diet to some extent.
Objective
Data Reviewed
Laboratory Data:
Laboratory Results
06/17/23 07:49
06/17/23 07:49
Laboratory Results
Magnesium 1.4 mg/dl (1.6-2.3) L 06/09/23 14:55
Total Bilirubin 0.6 mg/dl (0.2-1.3) 06/17/23 07:49
AST 22 U/L (14-36) 06/17/23 07:49
ALT 14 U/L (0-35) 06/17/23 07:49
Alkaline Phosphatase 116 U/L (38-126) 06/17/23 07:49
Lipase 171 U/L (23-300) 06/09/23 14:55
Vital Signs and I&O:
Vital Signs
Temp Pulse Resp BP Pulse Ox
98.6 F 78 19 110/68 93
06/17/23 07:30 06/17/23 07:30 06/17/23 07:30 06/17/23 07:30 06/17/23 07:30
I&O
06/16/23 06/17/23 06/18/23
06:59 06:59 06:59
Intake Total 480 / 480 1380 / 1380
Balance 480 / 480 1380 / 1380
Physical Exam
Physical Exam
GI: Soft, Non Distended and Non Tender
[2023-06-17] MEDS: ZOFRAN 4 MG IV (15:07)
[2023-06-17 15:35] VITALS: BP 161/91
[2023-06-17] MEDS: DILAUDID 1 MG IV ×2 (15:36→20:33)
[2023-06-17] MEDS: COMPAZINE 5 MG IV (18:29)
[2023-06-17] MEDS: ATIVAN 0.5 MG PO (20:33)
[2023-06-17] MEDS: MELATONIN 5 MG PO (22:20)
[2023-06-17] MEDS: LIPITOR 80 MG PO (22:20)
[2023-06-17] MEDS: COLACE PO (22:23)
[2023-06-17] MEDS: SENOKOT PO (22:24)
[2023-06-17 23:03] VITALS: BP 97/60
[2023-06-18] MEDS: CARAFATE SUSPENSION 1 GM PO ×5 (00:54→23:03)
[2023-06-18 06:41] LABS: % Basophils 0.5 % (0-2); % Eosinophils 2.9 % (0-6); % Immature Granulocytes 0.3 % (0-0.5); % Lymphocytes 28.4 % (20.5-51.1); % Monocytes 10.8 % (1.7-9.3); % Neutrophils 57.1 % (42.2-75.2); Absolute Eosinophils 0.2 10^3/uL (0-0.7); Absolute Lymphocytes 1.8 10^3/uL (1.2-3.4); Absolute Monocytes 0.7 10^3/uL (0.1-0.6); Absolute Neutrophils 3.6 10^3/uL (1.4-6.5); Hematocrit 34.4 % (37.0-47.0); Hemoglobin 11.5 g/dL (12.0-16.0); Mean Corp Hgb Conc. 33.4 g/dL (33.0-37.0); Mean Corpuscular Hgb 31.8 pg (27.0-31.0); Nucleated Red Blood Cells % 0 %; Platelet Count 339 10^3/uL (130-400); Red Blood Cell Count 3.62 10^6/uL (4.20-5.40); Red Cell Dist. Width 12.6 % (11.5-14.5); White Blood Cell Count 6.3 10^3/uL (4.8-10.8)
[2023-06-18 07:03] LABS: ALT (SGPT) 16 U/L (0-35); AST (SGOT) 22 U/L (14-36); Albumin 3.1 g/dl (3.5-5.0); Alkaline Phosphatase 110 U/L (38-126); Blood Urea Nitrogen 7 mg/dl (7-17); Calcium 9.4 mg/dl (8.4-10.2); Carbon Dioxide 27 mmol/L (22-30); Chloride 106 mmol/L (98-107); Estimated Creatinine Clearance 98 ml/min; Glucose 87 mg/dl (70-99); Magnesium 1.4 mg/dl (1.6-2.3); Potassium 3.7 mmol/L (3.5-5.1); Sodium 135 mmol/L (135-145); Total Bilirubin 0.6 mg/dl (0.2-1.3); Total Protein 5.4 g/dl (6.3-8.2); eGFR > 60.00
[2023-06-18 07:48] VITALS: BP 127/69
[2023-06-18] MEDS: COZAAR 100 MG PO (09:01)
[2023-06-18] MEDS: PROTONIX IV 40 MG IV ×2 (09:01→21:04)
[2023-06-18] MEDS: VITAMIN D3 (cholecalciferol) 25 MCG PO (09:01)
[2023-06-18] MEDS: NORVASC 10 MG PO (09:02)
[2023-06-18] MEDS: THERAGRAN 1 TABLET PO (09:02)
[2023-06-18] MEDS: BENTYL 20 MG PO ×3 (09:02→21:05)
[2023-06-18] MEDS: NSS (PRESERVATIVE FREE) 10 ML IV ×2 (09:02→21:05)
[2023-06-18] MEDS: MAGNESIUM SULFATE 100 IV (09:10)
--- NOTE | 2023-06-18 09:16 | VATNOTE ---
On VAT rounds: The client continues with right arm pain. Palpable cord noted. Warm compress applied for comfort.Will monitor closely.
[2023-06-18] MEDS: PROZAC 60 MG PO (10:56)
--- NOTE | 2023-06-18 11:34 | W.PN.GI.CBS2 ---
Today's Communication / Plan
-
N.p.o. after midnight
Timing of EGD with closure of fistula- to be discussed with Dr. Carrasquillo tomorrow am
Assessment / Plan
-
72-year-old female with a past medical history significant for GERD, hypertension, gastric bypass surgery in the , PUD, recent right shoulder surgery for DDD, HLD readmitted for ongoing abdominal pain, nausea and vomiting.
She was recently hospitalized 06/06/23 with N/V and abdominal pain and had EGD performed on 06/07/23 which was significant for a clean-based ulcer at the gastrojejunal anastomosis, the remnant stomach was not explored via the fistula, however, this was
seen on EGD by Dr. Arenas, back in January. She is scheduled to have her fistula closed via endosuture with Dr. Carrasquillo on 06/27, however, represents for recurring symptoms.
CT of the abdomen pelvis with oral and IV contrast shows mild distention of focal loop of small bowel in the left mid abdomen, filled with oral contrast, consistent with stenosis of the anastomosis related to the patient's previous gastric bypass.
There is no other evidence to suggest bowel obstruction. No free air. No free fluid or collection. The remainder the exam is unchanged compared to 4 days ago. chest x-ray shows no pneumoperitoneum. No acute pulmonary process identified.
Probable mild ectasia of the ascending aorta.
UGI Series w/ SBFT (06/14/23): s/p gastric bypass and evidence of communication with the gastric pouch and the excluded stomach along the superior border. No extravasation.Mild smooth narrowing at the anastomosis of the small bowel distally, no
obstruction. No inflammatory stranding or change in appearance of the bowel loops. Distal small bowel loops are normal caliber. Incidental note is made of a small 1 cm duodenal diverticulum. No ulceration. There is a small plum size hiatal hernia
and a small amount of gastroesophageal reflux during the exam.
Impression
Epigastric/periumbilical pain
Gastrojejunal clean-based ulcer (8 mm) 06/07/23 on EGD
Gastric fistula into gastric remnant stomach
Bilious vomiting
Recent right shoulder surgery with prior NSAID (stopped end of May)
Cholelithiasis w/o biliary duct dilatation, isolated elevation in alkaline phosphatase
Plan:
Discussed by Dr. White yesterday- her abdominal pain can be explained by the presence of her gastric fistula, but certainly early satiety, nausea and vomiting could be due to this. That said, closing the fistula will not necessarily 'cure' her
abdominal pain. I discussed this possibility with patient and her , who are understandably frustrated by the lack of answers and lasting relief she has been getting, requiring readmission and inability to be discharged. I raised the
possibility of her ulcers causing her pain, which is very possible, but also, she has gallstones seen on imaging, and she may be experiencing biliary colic. She had a persistently elevated alkaline phosphatase, reaching levels >200, which was new in
April and persistent until it normalized yesterday. GGT was also elevated.
HIDA scan without CCK- was normal.
-Continue dicyclomine 20 mg 3 times daily
-Continue Pantoprazole 40 mg BID
-Antiemetics prn
-Continue clear liquid diet. Okay to advance to full liquid diet if tolerating today
-will discuss with Dr. Carrasquillo if EGD can be arranged for Monday or Monday , pending rep availability required to complete the procedure . Explained again to patient that the procedure next week Monday or Monday depending on Dr. Carrasquillo's
availability/rep availability. N.p.o. after midnight
Total Time Spent with Patient (in minutes): 35
Subjective
Subjective
Date of Service: June 18, 2023
1 episode of abdominal pain yesterday. No pain now. No nausea or vomiting
Objective
Data Reviewed
Laboratory Data:
Laboratory Results
06/18/23 05:39
06/18/23 05:39
Laboratory Results
Magnesium 1.4 mg/dl (1.6-2.3) L 06/18/23 05:39
Total Bilirubin 0.6 mg/dl (0.2-1.3) 06/18/23 05:39
AST 22 U/L (14-36) 06/18/23 05:39
ALT 16 U/L (0-35) 06/18/23 05:39
Alkaline Phosphatase 110 U/L (38-126) 06/18/23 05:39
Lipase 171 U/L (23-300) 06/09/23 14:55
Vital Signs and I&O:
Vital Signs
Temp Pulse Resp BP Pulse Ox
97.7 F 80 16 127/69 98
06/18/23 07:48 06/18/23 07:48 06/18/23 07:48 06/18/23 07:48 06/18/23 07:48
I&O
06/17/23 06/18/23 06/19/23
06:59 06:59 06:59
Intake Total 1380 / 1380
Balance 1380 / 1380
Physical Exam
Physical Exam
GI: Soft, Non Distended and Non Tender
--- NOTE | 2023-06-18 12:29 | W.PN.HOSP.TC ---
Today's Communication/Plan
-
waiting for procedure
Assessment / Plan
Assessment / Plan
pt is a 72 year old female
Recurrent severe abdominal pain/vomiting secondary to gastrojejunal anastomotic ulcer/esophagitis--History of gastric bypass--History of GERD/hiatal hernia--CT scan shows postoperative stenosis at anastomosis--Recent EGD with anastomotic ulcer as
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
-Upper GI series on 06/13 findings consistent with gastric bypass with communication with the gastric pouch and excluded stomach along the superior border with no extravasation. Mild smooth narrowing at the anastomosis of the small bowel distally
with no obstruction. No inflammatory stranding or change in appearance of the bowel loops. Distal small bowel loops are normal in caliber. Incidental finding of a small 1 cm duodenal diverticulum--Continue Protonix 40 IV twice daily--consider
changing to PPI drip--cont carafate, dicyclomine PRN for pain--IV dilaudid PRN --tolerating clears, waiting for procedure
Cholelithiasis with no clinical or radiologic evidence of acute cholecystitis. HIDA scan normal.
Hypovolemic hyponatremia/Hypokalemia/hypomagnesemia--replete all as needed, IVF
Essential hypertension--Continue amlodipine, hydrochlorothiazide, losartan
Hyperlipidemia-Continue statin
Recent right shoulder surgery-Patient has been taking Percocet for this
Chronic lower back pain-Continue Tylenol
Anxiety/depression-Continue fluoxetine
Constipation-Continue bowel rest
Moderate protein calorie malnutrition
Full code
DVT prophylaxis�SCDs
Anticipated Discharge: > 48 hours
Subjective/Interval History
-
Date of Service: June 18, 2023
pt tolerating clear liquids
Objective Data
-
Labs:
Laboratory Results
06/18/23
05:39
WBC 6.3
Hgb 11.5 L
Hct 34.4 L
Plt Count 339
Sodium 135
Potassium 3.7
Chloride 106
Carbon Dioxide 27
BUN 7
Creatinine 0.6
Glucose 87
Calcium 9.4
Total Bilirubin 0.6
AST 22
ALT 16
Alkaline Phosphatase 110
Vital Signs:
max temp for 24 hours
06/17/23
07:30
Temp 98.6 F
Vital Signs
Temp Pulse Resp BP Pulse Ox
97.7 F 80 16 127/69 98
06/18/23 07:48 06/18/23 07:48 06/18/23 07:48 06/18/23 07:48 06/18/23 07:48
I&O
06/17/23 06/18/23 06/19/23
06:59 06:59 06:59
Intake Total 1380 / 1380
Balance 1380 / 1380
Review of Systems
-
All other systems: Reviewed and negative
Physical Exam
-
General: Well Developed, Well Nourished and No Apparent Distress
HEENT: Normocephalic and Atraumatic; Negative Oxygen
Respiratory: Clear to Auscultation; Negative Wheezes or Rhonchi
Cardiac: Regular Rhythm and S1/S2; Negative Murmur
GI: Soft, Nontender, Nondistended and Normal Bowel Sounds
Musculoskeletal: No Clubbing, No Cyanosis and No Edema
Neuro: Awake
[2023-06-18] MEDS: TYLENOL 1000 MG PO (12:34)
[2023-06-18 15:15] VITALS: BP 103/65
[2023-06-18] MEDS: MELATONIN 5 MG PO (21:05)
[2023-06-18] MEDS: COLACE 100 MG PO (21:05)
[2023-06-18] MEDS: LIPITOR 80 MG PO (21:05)
[2023-06-18] MEDS: SENOKOT 17.1999999999999993 MG PO (21:05)
[2023-06-18] MEDS: ATIVAN 0.5 MG PO (21:15)
[2023-06-18 23:25] VITALS: BP 119/64
[2023-06-19] MEDS: CARAFATE SUSPENSION 1 GM PO ×3 (06:26→23:43)
[2023-06-19 07:35] VITALS: BP 123/86
[2023-06-19 07:39] LABS: Hematocrit 33.6 % (37.0-47.0); Hemoglobin 11.4 g/dL (12.0-16.0); Mean Corp Hgb Conc. 33.9 g/dL (33.0-37.0); Mean Corpuscular Hgb 32.1 pg (27.0-31.0); Mean Corpuscular Volume 94.6 fL (81.0-99.0); Mean Platelet Volume 10.1 fL (7.4-10.4); Platelet Count 328 10^3/uL (130-400); Red Blood Cell Count 3.55 10^6/uL (4.20-5.40); Red Cell Dist. Width 12.5 % (11.5-14.5); White Blood Cell Count 5.6 10^3/uL (4.8-10.8)
[2023-06-19 07:42] LABS: ALT (SGPT) 16 U/L (0-35); AST (SGOT) 25 U/L (14-36); Albumin 3.1 g/dl (3.5-5.0); Alkaline Phosphatase 111 U/L (38-126); Blood Urea Nitrogen 7 mg/dl (7-17); Calcium 9.6 mg/dl (8.4-10.2); Carbon Dioxide 29 mmol/L (22-30); Chloride 103 mmol/L (98-107); Estimated Creatinine Clearance 98 ml/min; Glucose 85 mg/dl (70-99); Magnesium 1.8 mg/dl (1.6-2.3); Potassium 4.1 mmol/L (3.5-5.1); Sodium 137 mmol/L (135-145); Total Bilirubin 0.6 mg/dl (0.2-1.3); Total Protein 5.5 g/dl (6.3-8.2); eGFR > 60.00
--- NOTE | 2023-06-19 09:11 | W.PN.UPDATE ---
Update Note
Progress Note Update
Discussed with . EGD today with
[2023-06-19] MEDS: NSS (PRESERVATIVE FREE) 10 ML IV ×2 (09:46→21:12)
[2023-06-19] MEDS: THERAGRAN 1 TABLET PO (09:46)
[2023-06-19] MEDS: COZAAR 100 MG PO (09:46)
[2023-06-19] MEDS: PROTONIX IV 40 MG IV ×2 (09:46→21:11)
[2023-06-19] MEDS: PROZAC 60 MG PO (09:47)
[2023-06-19] MEDS: NORVASC 10 MG PO (09:47)
[2023-06-19] MEDS: VITAMIN D3 (cholecalciferol) 25 MCG PO (09:47)
[2023-06-19] MEDS: BENTYL 20 MG PO ×3 (09:48→21:19)
[2023-06-19] MEDS: CARAFATE SUSPENSION PO (13:42)
[2023-06-19 15:15] VITALS: BP 141/90; BP_SYST 21
[2023-06-19 15:27] VITALS: BP 140/63; BP_SYST 19
--- NOTE | 2023-06-19 15:38 | W.PN.HOSP.TC ---
Today's Communication/Plan
-
EGD with marginal ulcer and no stenosis
Plan is to advance diet and monitor. Continue PPI.
Assessment / Plan
Assessment / Plan
pt is a 72 year old female
Recurrent severe abdominal pain/vomiting secondary to gastrojejunal anastomotic ulcer/esophagitis--History of gastric bypass--History of GERD/hiatal hernia--CT scan shows postoperative stenosis at anastomosis--Recent EGD with anastomotic ulcer as
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
-Upper GI series on 06/13 findings consistent with gastric bypass with communication with the gastric pouch and excluded stomach along the superior border with no extravasation. Mild smooth narrowing at the anastomosis of the small bowel distally
with no obstruction. No inflammatory stranding or change in appearance of the bowel loops. Distal small bowel loops are normal in caliber. Incidental finding of a small 1 cm duodenal diverticulum--Continue Protonix 40 IV twice daily--consider
changing to PPI drip--cont carafate, dicyclomine PRN for pain--IV dilaudid PRN --
EGD 06/18: Marginal ulcer is still present. Normal excluded stomach, duodenum. J-J anastomosis is patent with no stenosis.
Cholelithiasis with no clinical or radiologic evidence of acute cholecystitis. HIDA scan normal.
Hypovolemic hyponatremia/Hypokalemia/hypomagnesemia--replete all as needed, IVF
Essential hypertension--Continue amlodipine, hydrochlorothiazide, losartan
Hyperlipidemia-Continue statin
Recent right shoulder surgery-Patient has been taking Percocet for this
Chronic lower back pain-Continue Tylenol
Anxiety/depression-Continue fluoxetine
Constipation-Continue bowel rest
Moderate protein calorie malnutrition
Full code
DVT prophylaxis�SCDs
Anticipated Discharge: 24 - 48 hours
Subjective/Interval History
-
Date of Service: June 19, 2023
Objective Data
-
Labs:
Laboratory Results
06/19/23
06:18
WBC 5.6
Hgb 11.4 L
Hct 33.6 L
Plt Count 328
Sodium 137
Potassium 4.1
Chloride 103
Carbon Dioxide 29
BUN 7
Creatinine 0.6
Glucose 85
Calcium 9.6
Total Bilirubin 0.6
AST 25
ALT 16
Alkaline Phosphatase 111
Vital Signs:
Vital Signs
Temp Pulse Resp BP Pulse Ox
97.2 F 72 19 141/90 98
06/19/23 15:15 06/19/23 15:27 06/19/23 15:27 06/19/23 15:15 06/19/23 15:27
I&O
06/18/23 06/19/23 06/20/23
06:59 06:59 06:59
Intake Total 550 / 550
Balance 550 / 550
Physical Exam
-
General: Well Developed and No Apparent Distress
HEENT: Normocephalic, Atraumatic and Moist Mucous Membranes
Respiratory: Clear to Auscultation
Cardiac: Regular Rhythm and S1/S2; Negative Murmur, Rub or Gallop
GI: Soft, Nontender, Nondistended and Normal Bowel Sounds; Negative Organomegaly
Rectal: Deferred by Provider
Musculoskeletal: No Clubbing, No Cyanosis and No Edema
Skin: Negative Rash
Neuro: Nonfocal/Grossly Intact
[2023-06-19 15:46] VITALS: BP 157/58; BP_SYST 18
--- NOTE | 2023-06-19 16:05 | CM ---
Chart reviewed, home when stable.
plan; home when stable.
[2023-06-19 16:46] VITALS: BP 164/89
[2023-06-19] MEDS: COMPAZINE 5 MG IV (16:56)
[2023-06-19] MEDS: DILAUDID 1 MG IV (17:00)
--- NOTE | 2023-06-19 18:13 | W.PN.UPDATE ---
Addendum entered and electronically signed by Julianne Hernandez MD 06/19/23 18:16:
apt 07/31/2023 at 11.45 am
Original Note:
Update Note
Progress Note Update
Discussed with Dr. Carrasquillo. Continue PPI. No further intervention indicated at this point.
Follow-up with Dr. Carrasquillo as outpatient in July
GI will sign off. Please call us back if any questions
[2023-06-19] MEDS: MELATONIN 5 MG PO (21:13)
[2023-06-19] MEDS: LIPITOR 80 MG PO (21:13)
[2023-06-19] MEDS: SENOKOT 17.1999999999999993 MG PO (21:14)
[2023-06-19] MEDS: COLACE 100 MG PO (21:21)
[2023-06-19] MEDS: ATIVAN 0.5 MG PO (21:24)
[2023-06-19 23:35] VITALS: BP 101/57
[2023-06-20 03:44] VITALS: BP 142/52
[2023-06-20] MEDS: CARAFATE SUSPENSION 1 GM PO ×2 (05:43→12:17)
[2023-06-20 07:32] VITALS: BP 121/70
[2023-06-20] MEDS: VITAMIN D3 (cholecalciferol) 25 MCG PO (08:12)
[2023-06-20] MEDS: PROZAC 60 MG PO (08:12)
[2023-06-20] MEDS: COZAAR 100 MG PO (08:13)
[2023-06-20] MEDS: THERAGRAN 1 TABLET PO (08:13)
[2023-06-20] MEDS: NORVASC 10 MG PO (08:13)
[2023-06-20] MEDS: NSS (PRESERVATIVE FREE) 10 ML IV (08:13)
[2023-06-20] MEDS: PROTONIX IV 40 MG IV (08:13)
[2023-06-20] MEDS: BENTYL 20 MG PO (08:13)
[2023-06-20] MEDS: ZOFRAN 4 MG IV (09:59)
--- NOTE | 2023-06-20 11:53 | W.DS.TRANS ---
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
-
Discharge Instructions:
Discharge Diagnosis/Procedures Gastric ulcer
Diet Regular
Instructions:
Stand-Alone Forms:
Changes to Home Medications: Yes
Discharge Medications:
DC Medications w/original date entered in [facility]
atorvastatin 80 mg tablet 80 mg PO HS High cholesterol #0 tabs 10/22/22
multivitamin 1 tab PO DAILY Supplement #0 tabs 10/22/22
chromium picolinate 200 mcg tablet 200 mcg PO DAILY Supplement 11/23/22
collagen,hydrolysate 500 mg-biotin 800 mcg-ascorbic acid 50 mg capsule (Collagen 1500 Plus C) 1 cap PO DAILY Supplement 11/23/22
magnesium 200 mg tablet 400 mg PO DAILY Supplement 11/23/22
cholecalciferol (vitamin D3) 25 mcg (1,000 unit) tablet 25 mcg PO DAILY Supplement 11/28/22
amlodipine 10 mg tablet 10 mg PO DAILY Blood pressure #0 tabs 12/19/22
losartan 100 mg tablet 100 mg PO DAILY Blood pressure #0 tabs 12/19/22
Constantia 3-Turmeric 2 tab PO DAILY Supplement 05/08/23
acetaminophen 500 mg tablet (Tylenol Extra Strength) 1,000 mg PO Q6HPRN PRN mild pain 05/08/23
ashwagandha root extract 300 mg capsule 300 mg PO DAILY Supplement 05/08/23
aspirin 81 mg tablet,delayed release 81 mg PO HS Blood Clot Prevention/Tx 05/08/23
coQ10 (ubiquinol) 200 mg capsule 200 mg PO DAILY Supplement 05/08/23
docusate sodium 100 mg capsule (Colace) 100 mg PO HS Constipation 05/08/23
garlic 300 mg capsule 300 mg PO DAILY Supplement ##0 05/08/23
glucosamine sulf dipot chlr,msm,chond 550 mg-C 30 mg-tosin 1 mg capsule (Glucosamine Chondroitin) 1 cap PO DAILY Supplement 05/08/23
green tea leaf extract 1 cap PO DAILY Supplement 05/08/23
sennosides 8.6 mg tablet (senna) 17.2 mg PO HS Constipation 05/08/23
turmeric 400 mg capsule 400 mg PO DAILY Supplement 05/08/23
Dha W/ Vitamin D 1 tab PO DAILY Supplement 06/06/23
fluoxetine 20 mg capsule 60 mg PO DAILY Depression/Anxiety 06/06/23
pantoprazole 40 mg tablet,delayed release 40 mg PO BID Gastrointestinal issue #60 tabs 06/08/23
sucralfate 100 mg/mL oral suspension 1 gm PO Q6 #120 doses 06/08/23
dicyclomine 20 mg tablet 20 mg PO TID #90 tabs 06/20/23
ondansetron HCl 4 mg tablet 4 mg PO TID #60 tabs 06/20/23
Home Medication Changes
Percocet and HCTZ stopped
Pending Results: No
[2023-06-20] MEDS: TYLENOL 1000 MG PO (12:17)
[2023-06-20] MEDS: ZOFRAN 4 MG PO (12:18)
--- NOTE | 2023-06-20 13:52 | W.PN.HOSP.TC ---
Today's Communication/Plan
-
Reports nausea and abdominal discomfort about an hour after meal
Exam with benign abdomen.
Anxious
Continue regular diet trial
Position Zofran 3 times daily AC in about 30 to 45 minutes prior to meals
Eliminate narcotics.
Continue Carafate
Continue PPI twice daily
Assessment / Plan
Assessment / Plan
pt is a 72 year old female
Recurrent severe abdominal pain/vomiting secondary to gastrojejunal anastomotic ulcer/esophagitis--History of gastric bypass--History of GERD/hiatal hernia--CT scan shows postoperative stenosis at anastomosis--Recent EGD with anastomotic ulcer as
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
-Upper GI series on 06/13 findings consistent with gastric bypass with communication with the gastric pouch and excluded stomach along the superior border with no extravasation. Mild smooth narrowing at the anastomosis of the small bowel distally
with no obstruction. No inflammatory stranding or change in appearance of the bowel loops. Distal small bowel loops are normal in caliber. Incidental finding of a small 1 cm duodenal diverticulum--Continue Protonix 40 IV twice daily--consider
changing to PPI drip--cont carafate, dicyclomine PRN for pain--IV dilaudid PRN --
EGD 06/18: Marginal ulcer is still present. Normal excluded stomach, duodenum. J-J anastomosis is patent with no stenosis.
Cholelithiasis with no clinical or radiologic evidence of acute cholecystitis. HIDA scan normal.
Hypovolemic hyponatremia/Hypokalemia/hypomagnesemia--replete all as needed, IVF
Essential hypertension--Continue amlodipine, hydrochlorothiazide, losartan
Hyperlipidemia-Continue statin
Recent right shoulder surgery-Patient has been taking Percocet for this
Chronic lower back pain-Continue Tylenol
Anxiety/depression-Continue fluoxetine
Constipation-Continue bowel rest
Moderate protein calorie malnutrition
Full code
DVT prophylaxis�SCDs
Anticipated Discharge: Within 24 hours
Subjective/Interval History
-
Date of Service: June 20, 2023
Objective Data
-
Vital Signs:
Vital Signs
Temp Pulse Resp BP Pulse Ox
97.7 F 74 16 121/70 98
06/20/23 07:32 06/20/23 08:13 06/20/23 07:32 06/20/23 08:13 06/20/23 07:32
I&O
06/19/23 06/20/23 06/21/23
06:59 06:59 06:59
Intake Total 550 / 550
Balance 550 / 550
Physical Exam
-
General: Well Developed and No Apparent Distress
HEENT: Normocephalic, Atraumatic and Moist Mucous Membranes
Respiratory: Clear to Auscultation
Cardiac: Regular Rhythm and S1/S2; Negative Murmur, Rub or Gallop
GI: Soft, Nontender, Nondistended and Normal Bowel Sounds; Negative Organomegaly
Rectal: Deferred by Provider
Musculoskeletal: No Clubbing, No Cyanosis and No Edema
Skin: Negative Rash
Neuro: Nonfocal/Grossly Intact
--- NOTE | 2023-06-20 13:57 | CM ---
Patient is for discharge to home today, no needs.
Plan; Home today no needs.
[2023-06-20 14:50] VITALS: BP 159/89
[2023-06-20] MEDS: ATIVAN 0.5 MG PO (15:27)
== END 2023-06-20 15:38 | disposition home or self-care (01) | DRG 381 ==
LOC: 4 WEST ACU 09:10
PROVIDERS: Internal Medicine; Internal Medicine Gastroenterology; Nurse Practitioner; ADMITTING PHYSICIAN Hospitalist; ATTENDING PHYSICIAN Internal Medicine; CONSULT PHYSICIAN Internal Medicine Gastroenterology; EMERGENCY PHYSICIAN Emergency Medicine; FAMILY PHYSICIAN Nurse Practitioner Adult Health
PROC: 0DJ08ZZ Inspection of Upper Intestinal Tract, Via Natural or Artificial Opening Endoscopic (ICD-10-PCS; 2023-06-19)
DX: K28.9 Gastrojejunal ulcer, unspecified as acute or chronic, without hemorrhage or perforation (principal); E44.0 Moderate protein-calorie malnutrition; K31.6 Fistula of stomach and duodenum; E87.1 Hypo-osmolality and hyponatremia; K91.89 Other postprocedural complications and disorders of digestive system; E87.6 Hypokalemia; I10 Essential (primary) hypertension; F32.A Depression, unspecified; F41.9 Anxiety disorder, unspecified; K59.00 Constipation, unspecified; Z68.30 Body mass index [BMI] 30.0-30.9, adult; F17.200 Nicotine dependence, unspecified, uncomplicated; K22.89 Other specified disease of esophagus; Z98.0 Intestinal bypass and anastomosis status; E86.1 Hypovolemia; K20.90 Esophagitis, unspecified without bleeding; Z98.84 Bariatric surgery status
CPT/HCPCS: 71045; 74177; 74246; 74248; 78226; 80048; 80053; 82248; 82977; 83605; 83690; 83735; 84078; 85025; 85027; 86381; 86803; 93005; 96361; 96374; 96375; 96376; 99285; A9537; Q9967

== ENCOUNTER 2023-07-07 13:54 | Outpatient (RCR) | payer MEDICARE, BC, SELFPAY | END 2023-07-07 23:59 | disposition home or self-care (01) | LOC: RPT 13:54 | PROVIDERS: ATTENDING PHYSICIAN Orthopaedic Surgery Hand Surgery; FAMILY PHYSICIAN Nurse Practitioner Adult Health | DX: Z47.1 Aftercare following joint replacement surgery (principal); Z73.6 Limitation of activities due to disability; Z96.611 Presence of right artificial shoulder joint | CPT/HCPCS: 97110; 97161 ==

== ENCOUNTER 2023-07-21 10:59 | Outpatient (RCR) | payer MEDICARE, BC, SELFPAY | END 2023-07-21 23:59 | disposition home or self-care (01) | LOC: RPT 10:59 | PROVIDERS: ATTENDING PHYSICIAN Orthopaedic Surgery Hand Surgery; FAMILY PHYSICIAN Nurse Practitioner Adult Health | DX: Z47.1 Aftercare following joint replacement surgery (principal); Z96.611 Presence of right artificial shoulder joint; Z73.6 Limitation of activities due to disability | CPT/HCPCS: 97110 ==

== ENCOUNTER → 2023-08-02 08:33 | Outpatient (REF) | payer MEDICARE, BC, SELFPAY ==
[2023-08-02 12:50] LABS: % Basophils 0.4 % (0-2); % Immature Granulocytes 0.2 % (0-0.5); % Lymphocytes 25.6 % (20.5-51.1); % Monocytes 7.9 % (1.7-9.3); % Neutrophils 63.9 % (42.2-75.2); Absolute Eosinophils 0.1 10^3/uL (0-0.7); Absolute Lymphocytes 1.4 10^3/uL (1.2-3.4); Absolute Monocytes 0.4 10^3/uL (0.1-0.6); Absolute Neutrophils 3.5 10^3/uL (1.4-6.5); Hematocrit 40.3 % (37.0-47.0); Hemoglobin 13.2 g/dL (12.0-16.0); Mean Corp Hgb Conc. 32.8 g/dL (33.0-37.0); Mean Corpuscular Hgb 31.1 pg (27.0-31.0); Mean Platelet Volume 10.1 fL (7.4-10.4); Nucleated Red Blood Cells % 0 %; Platelet Count 275 10^3/uL (130-400); Red Blood Cell Count 4.24 10^6/uL (4.20-5.40); Red Cell Dist. Width 13.1 % (11.5-14.5); White Blood Cell Count 5.4 10^3/uL (4.8-10.8)
[2023-08-02 13:14] LABS: HDL Cholesterol 102 mg/dl; LDL Cholesterol, Calculated 77 mg/dl; Total Cholesterol 191 mg/dl (50-199); Triglyceride 64 mg/dl (10-149); Very Low Density Lipoprotein 12 mg/dl (0-30)
[2023-08-02 13:45] LABS: TSH Reflex To Free T4 0.61 uIU/ml (0.47-4.68)
== END ==
LOC: HWLAB 08:33
PROVIDERS: ATTENDING PHYSICIAN Nurse Practitioner Adult Health
DX: D64.9 Anemia, unspecified (principal); E78.00 Pure hypercholesterolemia, unspecified; I10 Essential (primary) hypertension
CPT/HCPCS: 36415; 80061; 84443; 85025

== ENCOUNTER 2023-09-28 06:22 | Day surgery (SDC) | payer MEDICARE, BC, SELFPAY ==
[2023-09-28] VITALS (8 sets, daily range): BP systolic 116–141; BP diastolic 71–84; BMI 28.6
== END 2023-09-28 10:48 | disposition home or self-care (01) ==
LOC: SDS 06:22
PROVIDERS: ATTENDING PHYSICIAN Internal Medicine Gastroenterology
DX: T18.2XXA Foreign body in stomach, initial encounter (principal); Z98.0 Intestinal bypass and anastomosis status; K31.6 Fistula of stomach and duodenum; K28.7 Chronic gastrojejunal ulcer without hemorrhage or perforation; W44.F3XA Food entering into or through a natural orifice, initial encounter
CPT/HCPCS: 43270; 43247

== ENCOUNTER → 2023-12-06 08:09 | Outpatient (REF) | payer MEDICARE, BC, SELFPAY ==
[2023-12-06 09:47] LABS: ALT (SGPT) 26 U/L (0-35); AST (SGOT) 31 U/L (14-36); Albumin 4.2 g/dl (3.5-5.0); Alkaline Phosphatase 72 U/L (38-126); Alkaline Phosphatase, Total 72 U/L (38-126); Blood Urea Nitrogen 15 mg/dl (7-17); Calcium 9.7 mg/dl (8.4-10.2); Carbon Dioxide 28 mmol/L (22-30); Chloride 104 mmol/L (98-107); Glucose 104 mg/dl (70-99); HDL Cholesterol 97 mg/dl; LDL Cholesterol, Calculated 65 mg/dl; Potassium 4.6 mmol/L (3.5-5.1); Sodium 143 mmol/L (135-145); Total Cholesterol 178 mg/dl (50-199); Total Protein 6.7 g/dl (6.3-8.2); Triglyceride 80 mg/dl (10-149); Very Low Density Lipoprotein 16 mg/dl (0-30); eGFR > 60.00
[2023-12-06 11:19] LABS: Alk Phos After Heat < 20
== END ==
LOC: HWLAB 08:09
PROVIDERS: ATTENDING PHYSICIAN Nurse Practitioner Adult Health
DX: R74.8 Abnormal levels of other serum enzymes (principal); E78.00 Pure hypercholesterolemia, unspecified
CPT/HCPCS: 36415; 80053; 80061; 84078

== ENCOUNTER → 2024-01-15 09:36 | Outpatient (REF) | payer MEDICARE, BC, SELFPAY | LOC: HWRAD 09:36 | PROVIDERS: ATTENDING PHYSICIAN Nurse Practitioner Adult Health | DX: Z78.0 Asymptomatic menopausal state (principal); Z12.31 Encounter for screening mammogram for malignant neoplasm of breast | CPT/HCPCS: 77063; 77067; 77080 ==

== ENCOUNTER → 2024-03-22 11:44 | Outpatient (REF) | payer MEDICARE, BC, SELFPAY ==
[2024-03-22 14:55] LABS: % Basophils 0.4 % (0-2); % Eosinophils 1.1 % (0-6); % Immature Granulocytes 0.2 % (0-0.5); % Lymphocytes 25.1 % (20.5-51.1); % Monocytes 8.2 % (1.7-9.3); Absolute Eosinophils 0.1 10^3/uL (0-0.7); Absolute Lymphocytes 1.3 10^3/uL (1.2-3.4); Absolute Monocytes 0.4 10^3/uL (0.1-0.6); Absolute Neutrophils 3.4 10^3/uL (1.4-6.5); Hematocrit 36.7 % (37.0-47.0); Hemoglobin 12.3 g/dL (12.0-16.0); Mean Corp Hgb Conc. 33.5 g/dL (33.0-37.0); Mean Corpuscular Hgb 32.3 pg (27.0-31.0); Mean Corpuscular Volume 96.3 fL (81.0-99.0); Mean Platelet Volume 9.2 fL (7.4-10.4); Nucleated Red Blood Cells % 0 %; Platelet Count 256 10^3/uL (130-400); Red Blood Cell Count 3.81 10^6/uL (4.20-5.40); Red Cell Dist. Width 12.9 % (11.5-14.5); White Blood Cell Count 5.3 10^3/uL (4.8-10.8)
[2024-03-22 15:34] LABS: Blood Urea Nitrogen 17 mg/dl (7-17); Calcium 9.7 mg/dl (8.4-10.2); Carbon Dioxide 27 mmol/L (22-30); Chloride 100 mmol/L (98-107); Glucose 89 mg/dl (70-99); Potassium 4.1 mmol/L (3.5-5.1); Sodium 136 mmol/L (135-145); eGFR > 60.00
== END ==
LOC: REG 11:44
PROVIDERS: ATTENDING PHYSICIAN Student in an Organized Health Care Education/Training Program; FAMILY PHYSICIAN Nurse Practitioner Adult Health; OTHER PHYSICIAN Student in an Organized Health Care Education/Training Program
DX: Z01.818 Encounter for other preprocedural examination (principal)
CPT/HCPCS: 36415; 80048; 85025

== ENCOUNTER 2024-08-26 13:56 | Emergency (ER) | payer MEDICARE, BC, SELFPAY ==
[2024-08-26 14:28] LABS: Hematocrit 36.7 % (37.0-47.0); Hemoglobin 12.8 g/dL (12.0-16.0); Mean Corp Hgb Conc. 34.9 g/dL (33.0-37.0); Mean Corpuscular Volume 91.5 fL (81.0-99.0); Nucleated Red Blood Cells % 0 %; Platelet Count 218 10^3/uL (130-400); Red Cell Dist. Width 12.3 % (11.5-14.5)
[2024-08-26 14:45] LABS: ALT (SGPT) 24 U/L (0-35); AST (SGOT) 31 U/L (14-36); Albumin 4.0 g/dl (3.5-5.0); Alkaline Phosphatase 87 U/L (38-126); Blood Urea Nitrogen 18 mg/dl (7-17); Calcium 10.0 mg/dl (8.4-10.2); Carbon Dioxide 24 mmol/L (22-30); Chloride 100 mmol/L (98-107); Glucose 108 mg/dl (70-99); Potassium 4.0 mmol/L (3.5-5.1); Sodium 132 mmol/L (135-145); Total Protein 6.9 g/dl (6.3-8.2); eGFR > 60.00
[2024-08-26 16:12] VITALS: BP 113/86
--- NOTE | 2024-08-26 16:44 | ED.GENMED ---
History of Present Illness
General
Chief Complaint: Breathing Problem
Time Seen by Provider: 08/26/24 16:11
History of Present Illness
History of Present Illness:
73-year-old female presents to the emergency department for evaluation of episodic periods of dyspnea and hacking cough for the past 2 to 3 weeks. She notes ever since returning from a trip to [place] her and her have both had a dry
cough, this seems to be improving. She denies chest pain. Has no dyspnea at rest however has periods of frequent dry cough that resulted in dyspnea and dizziness. Currently feels well after waiting in the ED.
Past History
Past History
ED Past Medical History: GERD, HTN, Hypercholesterolemia and Psychiatric
ED Past Surgical History: Orthopedic and Other (Gastric bypass surgery )
Social History
Tobacco: Former smoker
Alcohol: Occasional
Drug: None
Personal:
Living: with family
Review of Systems
Review of Systems
Allergies reviewed?: Yes
All Other Systems: ROS reviewed and negative except as documented in HPI and ROS
Phy Exam
Physical Exam
Physical Exam:
GEN: Well appearing, NAD, WDWN
HEENT: Oral mucosa moist, no scleral icterus
Cardiac: Regular rate and rhythm, no murmurs
Lung: No respiratory distress, no tachypnea, lungs clear to auscultation bilaterally
MSK: No gross deformity or injuries, no lower extremity edema
Skin: Good color, no pallor or jaundice, no rashes
Neuro: AO x3, moves all extremities freely
Psych: Calm, cooperative
Scores
Heart Failure Risk
Heart Failure Risk Score: Not Applicable
Course
Orders/Labs/Results
Orders:
Orders
08/26/24 14:05
Electrocardiogram (*1) Urgent
Reason for Study: Shortness of Breath
Chest [CR Chest - 2 Views ] Urgent
Comment:
Reason For Exam: SOB
08/26/24 14:06
EKG- Treatment ONCE
08/26/24 14:14
Complete Blood Count/With Diff Urgent
Comprehensive Metabolic Panel Urgent
TSH Reflex To Free T4 Urgent
Comment: ADD ON
08/26/24 16:49
Add On- LAB Urgent
Tests Added?: TSH w reflex
Abnormal Lab Results
08/26/24
14:14
RBC 4.01 L 10^6/uL
(4.20-5.40)
Hct 36.7 L %
(37.0-47.0)
MCH 31.9 H pg
(27.0-31.0)
Absolute Neuts (auto) 7.5 H 10^3/uL
(1.4-6.5)
Absolute Lymphs (auto) 1.1 L 10^3/uL
(1.2-3.4)
Absolute Monos (auto) 1.0 H 10^3/uL
(0.1-0.6)
Neutrophils % 77.3 H %
(42.2-75.2)
Lymphocytes % 11.4 L %
(20.5-51.1)
Monocytes % 10.7 H %
(1.7-9.3)
Sodium 132 L mmol/L
(135-145)
BUN 18 H mg/dl
(7-17)
Glucose 108 H mg/dl
(70-99)
08/26/24 14:14
08/26/24 14:14
Vital Signs
Initial and Last Documented VS:
Initial Vital Signs
Pulse Resp Pulse Ox
92 20 99
08/26/24 13:59 08/26/24 13:59 08/26/24 13:59
Last Documented Vital Signs
Pulse Resp BP Pulse Ox
88 16 113/86 100
08/26/24 16:12 08/26/24 16:12 08/26/24 16:12 08/26/24 16:46
MDM/Problems Addressed
MDM/Problems Addressed:
I suspect the patient is having bronchospasms evidenced by intractable dry cough and dyspnea that abruptly resolves without obvious trigger. Will trial beta agonist therapy, recommend primary care follow-up if symptoms persist
Comment
Comment:
EKG independently interpreted by me shows a normal sinus rhythm at a rate of [address] changes however V4 interpretation limited by artifact
*Pulse Oximetry
SaO2: 100
Oxygen Mode of Delivery: Room air
Patient hypoxic: no
*Critical Care Note
Total Time (30-74mins, 75-104mins- exclusive of procedures): Not Applicable
ED Attending Note
-
Portions of this chart may have been created with voice recognition software.� Occasional wrong word or��sound alike� substitutions may have occurred due to the inherent limitations of voice recognition software.
Discharge Plan
Departure
Patient Disposition: Home (Routine Discharge)
Date of Disposition: 08/26/24
Time of Disposition: 16:44
Patient with high blood pressure during this ER visit?: No
Discharge Problem:
Bronchospasm
Instructions: Cough in adults
Prescriptions:
New
albuterol sulfate [Ventolin HFA] 90 mcg/actuation HFA aerosol inhaler
2 puff inhalation Q6H PRN (Reason: cough/shortness of breath) Qty: 6.7 0RF
No Action
multivitamin Tablet
1 tab PO DAILY Qty: 0 0RF
atorvastatin 80 mg Tablet
80 mg PO HS Qty: 0 0RF
chromium picolinate 200 mcg Tablet
200 mcg PO DAILY
magnesium 200 mg Tablet
400 mg PO DAILY
Collagen 1500 Plus C 500 mg-800 mcg- 50 mg Capsule
1 cap PO DAILY
cholecalciferol (vitamin D3) 25 mcg (1,000 unit) Tablet
25 mcg PO DAILY
amlodipine 10 mg Tablet
10 mg PO DAILY Qty: 0 0RF
losartan 100 mg Tablet
100 mg PO DAILY Qty: 0 0RF
garlic 300 mg Capsule
300 mg PO DAILY Qty: 0
sennosides [senna] 8.6 mg Tablet
17.2 mg PO HS
aspirin 81 mg Tablet,Delayed Release (Dr/Ec)
81 mg PO HS
acetaminophen [Tylenol Extra Strength] 500 mg Tablet
1,000 mg PO Q6HPRN PRN (Reason: mild pain)
docusate sodium [Colace] 100 mg Capsule
100 mg PO HS
green tea leaf extract Capsule
1 cap PO DAILY
coQ10 (ubiquinol) 200 mg Capsule
200 mg PO DAILY
ashwagandha root extract 300 mg Capsule
300 mg PO DAILY
turmeric 400 mg Capsule
400 mg PO DAILY
Glucosamine Chondroitin 550-30-1 mg Capsule
1 cap PO DAILY
Chili 3-Turmeric
2 tab PO DAILY
fluoxetine 20 mg capsule
60 mg PO DAILY
Dha W/ Vitamin D
1 tab PO DAILY
sucralfate 100 mg/mL Suspension
1 gm PO Q6 Qty: 120 0RF
pantoprazole 40 mg tablet,delayed release (DR/EC)
40 mg PO BID Qty: 60 0RF
ondansetron HCl 4 mg Tablet
4 mg PO TID Qty: 60 0RF
Rx Instructions:
take 30-45 min prior to meal
Activity Restrictions/Additional Instructions:
Follow up with your primary care doctor
Interventions
Interventions:
*Risk Screen - Suicide Last Done: 08/26/24 13:59
*General Assessment Last Done: 08/26/24 13:59
*Neglect/Abuse Screening Last Done: 08/26/24 16:12
*ED- Fall Risk Assessment Last Done: 08/26/24 16:12
*ED COVID-19 Vaccine History Last Done: 08/26/24 16:12
*Nursing Disposition Last Done: 08/26/24 16:52
ED- Cardiac Assessment Last Done: 08/26/24 16:12
ED- Pulmonary Assessment Last Done: 08/26/24 16:12
Discharge Date and Time
Discharge Date/Time: 08/26/24 16:53
Print Language: SETSWANA
== END 2024-08-26 16:53 | disposition home or self-care (01) ==
LOC: EMR 13:56
PROVIDERS: Student in an Organized Health Care Education/Training Program; EMERGENCY PHYSICIAN Emergency Medicine; FAMILY PHYSICIAN Nurse Practitioner Adult Health
DX: J98.01 Acute bronchospasm (principal); R05.9 Cough, unspecified; R42 Dizziness and giddiness; I10 Essential (primary) hypertension; E78.00 Pure hypercholesterolemia, unspecified; K21.9 Gastro-esophageal reflux disease without esophagitis; Z87.891 Personal history of nicotine dependence; Z98.84 Bariatric surgery status; Z79.82 Long term (current) use of aspirin
CPT/HCPCS: 99283; 71046; 80053; 84443; 85025; 93005

== ENCOUNTER 2024-10-12 16:04 | Inpatient (IN) | payer MEDICARE, BC, SELFPAY ==
[2024-10-12] VITALS (7 sets, daily range): BP systolic 131–157; BP diastolic 72–88; BMI 29.3; BMI 29.4
[2024-10-12] MEDS: TORADOL 15 MG IV (08:09)
--- NOTE | 2024-10-12 08:38 | ED.GENMED ---
History of Present Illness
General
Chief Complaint: Extremity Pain (non-traumatic)
Time Seen by Provider: 10/12/24 07:04
History of Present Illness
History of Present Illness:
73-year-old female presents to the emergency department for evaluation of similar nontraumatic right shoulder pain. She is approximately 2 years status post right total shoulder replacement performed by [facility] orthopedics. Patient does
report falling approximately 2 weeks ago and had a small area of bruising to the right shoulder however did not have any pain until the past 2 to 3 days. Having significant difficulty moving the arm or using it. No fevers
Past History
Past History
ED Past Medical History: GERD, HTN, Hypercholesterolemia and Psychiatric
ED Past Surgical History: Orthopedic and Other (Gastric bypass surgery )
Social History
Tobacco: Former smoker
Alcohol: Occasional
Drug: None
Personal:
Living: with family
Review of Systems
Review of Systems
Allergies reviewed?: Yes
All Other Systems: ROS reviewed and negative except as documented in HPI and ROS
Phy Exam
Physical Exam
Physical Exam:
GEN: Well appearing, NAD, WDWN
HEENT: Oral mucosa moist, no scleral icterus
Cardiac: Regular rate
Lung: No respiratory distress, no tachypnea
MSK: Moderate swelling about the right shoulder with no gross deformity or warmth, there is moderate to severe pain with passive range of motion, no crepitus
Skin: Good color, no pallor or jaundice, no rashes
Neuro: AO x3, moves all extremities freely
Psych: Calm, cooperative
Course
Orders/Labs/Results
Orders:
Orders
10/12/24 07:52
Ketorolac [Toradol] 15 mg IV NOW STA
CR Shoulder - Right Min 2 View Urgent
Comment:
Reason For Exam: non traumatic pain, h/o replacement
10/12/24 08:12
CRP [C-Reactive Protein] Urgent
Complete Blood Count/With Diff Urgent
Comprehensive Metabolic Panel Urgent
ESR [Erythrocyte Sed Rate] Urgent
10/12/24 09:46
ORTHOPEDIC CONSULT Urgent
Consulting Provider: Teo Jenkins
Was physician already notified: Yes
10/12/24 11:20
HYDROmorphone [Dilaudid] 0.5 mg IV NOW STA
10/12/24 12:14
CT Upper Ext W/o Iv Cont Rt Urgent
Comment:
Reason For Exam: R shoulder pain
10/12/24 12:29
Body Fluid Cell Count Urgent
What is the Body Fluid: R shoulder joint fluid
Date Specimen was Collected: 10/12/24
Time Specimen was Collected: 12:27
Fluid Culture with Gram Stain Urgent
FRANCK Source: Joint Fluid
Specimen Description:
Date Specimen was Collected: 10/12/24
Time Specimen was Collected: 12:27
Abnormal Lab Results
10/12/24
08:12
RBC 3.88 L 10^6/uL
(4.20-5.40)
Hct 36.8 L %
(37.0-47.0)
MCH 32.5 H pg
(27.0-31.0)
Absolute Lymphs (auto) 1.1 L 10^3/uL
(1.2-3.4)
Absolute Monos (auto) 1.0 H 10^3/uL
(0.1-0.6)
Lymphocytes % 12.8 L %
(20.5-51.1)
Monocytes % 11.7 H %
(1.7-9.3)
ESR 72 H mm/hour
(0-20)
Creatinine 0.5 L mg/dL
(0.6-1.0)
Glucose 102 H mg/dl
(70-99)
AST 42 H U/L
(14-36)
C-Reactive Protein 181.60 H mg/L
(0.0-10.00)
10/12/24 08:12
10/12/24 08:12
Vital Signs
Initial and Last Documented VS:
Initial Vital Signs
Temp Pulse Resp BP Pulse Ox
98.1 F 87 18 157/88 97
10/12/24 06:48 10/12/24 06:48 10/12/24 06:48 10/12/24 06:48 10/12/24 06:48
Last Documented Vital Signs
Temp Pulse Resp BP Pulse Ox
98.1 F 77 16 147/81 96
10/12/24 06:48 10/12/24 11:16 10/12/24 11:16 10/12/24 11:16 10/12/24 11:16
Procedures
Incision/Drainage/Joint Aspiration
R shoulder:
Anethesia: 1% Lidocaine
Preparation: cleaned with Betadine
Type of procedure: aspiration
Nature of site: other (joint)
How much fluid was obtained?: small amount
Fluid description: bloody
Additional information:
Initial attempt via posterior approach yielded 1cc bloody fluid, subsequent attempt via anterior approach yielded 6cc bloody fluid, sent for culture/cell count
MDM/Problems Addressed
MDM/Problems Addressed:
Due to marked elevation of laboratory markers, case was discussed with orthopedics as well as interventional radiology. Orthopedics did not consult on patient was not available for aspiration thus patient was verbally consented to ultrasound-guided
bedside aspiration performed by myself. This was done with sterile precautions with imaging guidance for safety purposes. 6 cc of bloody fluid was obtained via anterior approach and sent for cell count and culture, cell count revealed greater than
50K white blood cells thus concerning for possible PJI. After careful discussion with orthopedics decision was made to admit the patient for operative intervention pending cultures, no empiric antibiotics initiated at this time per orthopedic
request
*Pulse Oximetry
SaO2: 97
Oxygen Mode of Delivery: Room air
Patient hypoxic: no
*Critical Care Note
Total Time (30-74mins, 75-104mins- exclusive of procedures): Not Applicable
ED Attending Note
-
Portions of this chart may have been created with voice recognition software.� Occasional wrong word or��sound alike� substitutions may have occurred due to the inherent limitations of voice recognition software.
Discharge Plan
Departure
Patient Disposition: Admit
Date of Disposition: 10/12/24
Time of Disposition: 13:34
Presentation/result/management discussed w/ accepting MD/DO: Hospitalist
Patient with high blood pressure during this ER visit?: No
Discharge Problem:
Hemarthrosis of right shoulder
Prescriptions:
New
oxycodone 5 mg tablet
5 mg PO Q8H PRN (Reason: Pain) Qty: 15 0RF
No Action
multivitamin Tablet
1 tab PO DAILY Qty: 0 0RF
atorvastatin 80 mg Tablet
80 mg PO HS Qty: 0 0RF
chromium picolinate 200 mcg Tablet
200 mcg PO DAILY
magnesium 200 mg Tablet
400 mg PO DAILY
Collagen 1500 Plus C 500 mg-800 mcg- 50 mg Capsule
1 cap PO DAILY
cholecalciferol (vitamin D3) 25 mcg (1,000 unit) Tablet
25 mcg PO DAILY
amlodipine 10 mg Tablet
10 mg PO DAILY Qty: 0 0RF
losartan 100 mg Tablet
100 mg PO DAILY Qty: 0 0RF
garlic 300 mg Capsule
300 mg PO DAILY Qty: 0
sennosides [senna] 8.6 mg Tablet
17.2 mg PO HS
aspirin 81 mg Tablet,Delayed Release (Dr/Ec)
81 mg PO HS
acetaminophen [Tylenol Extra Strength] 500 mg Tablet
1,000 mg PO Q6HPRN PRN (Reason: mild pain)
docusate sodium [Colace] 100 mg Capsule
100 mg PO HS
green tea leaf extract Capsule
1 cap PO DAILY
coQ10 (ubiquinol) 200 mg Capsule
200 mg PO DAILY
ashwagandha root extract 300 mg Capsule
300 mg PO DAILY
turmeric 400 mg Capsule
400 mg PO DAILY
Glucosamine Chondroitin 550-30-1 mg Capsule
1 cap PO DAILY
[place] 3-Turmeric
2 tab PO DAILY
fluoxetine 20 mg capsule
60 mg PO DAILY
Dha W/ Vitamin D
1 tab PO DAILY
sucralfate 100 mg/mL Suspension
1 gm PO Q6 Qty: 120 0RF
pantoprazole 40 mg tablet,delayed release (DR/EC)
40 mg PO BID Qty: 60 0RF
ondansetron HCl 4 mg Tablet
4 mg PO TID Qty: 60 0RF
Rx Instructions:
take 30-45 min prior to meal
albuterol sulfate [Ventolin HFA] 90 mcg/actuation HFA aerosol inhaler
2 puff inhalation Q6H PRN (Reason: cough/shortness of breath) Qty: 6.7 0RF
Referrals:
Violet Bell CRNP [Family Provider, General]
Activity Restrictions/Additional Instructions:
Your initial cell count is not overly suspicious for an infected joint however further culture testing will be performed
Follow-up with Dr. Mcdowell's office on Monday as planned
Take the pain medication I prescribed as needed and ice the shoulder to reduce swelling
Interventions
Interventions:
*Risk Screen - Suicide Last Done: 10/12/24 06:49
*General Assessment Last Done: 10/12/24 06:49
*Neglect/Abuse Screening Last Done: 10/12/24 06:49
*ED COVID-19 Vaccine History Last Done: 10/12/24 08:05
ED-Musculoskeletal Assessment Last Done: 10/12/24 08:05
ED-Peripheral Vascular Assessment Last Done: 10/12/24 08:05
ED-Skin Assessment Last Done: 10/12/24 08:05
Discharge Date and Time
Print Language: TUNISIAN
[2024-10-12 09:03] LABS: Hematocrit 36.8 % (37.0-47.0); Hemoglobin 12.6 g/dL (12.0-16.0); Mean Corp Hgb Conc. 34.2 g/dL (33.0-37.0); Mean Corpuscular Volume 94.8 fL (81.0-99.0); Nucleated Red Blood Cells % 0 %; Platelet Count 218 10^3/uL (130-400); Red Cell Dist. Width 13.5 % (11.5-14.5)
[2024-10-12 09:13] LABS: ALT (SGPT) 34 U/L (0-35); AST (SGOT) 42 U/L (14-36); Albumin 4.4 g/dl (3.5-5.0); Alkaline Phosphatase 116 U/L (38-126); Blood Urea Nitrogen 11 mg/dl (7-17); Calcium 9.8 mg/dl (8.4-10.2); Carbon Dioxide 27 mmol/L (22-30); Chloride 103 mmol/L (98-107); Estimated Creatinine Clearance 92 ml/min; Glucose 102 mg/dl (70-99); Potassium 4.2 mmol/L (3.5-5.1); Sodium 137 mmol/L (135-145); Total Protein 7.2 g/dl (6.3-8.2); eGFR > 60.00
[2024-10-12 09:30] LABS: C-Reactive Protein 181.60 mg/L (0.0-10.00)
[2024-10-12] MEDS: DILAUDID 0.5 MG IV ×3 (11:26→23:01)
--- NOTE | 2024-10-12 12:18 | CON.ORTHO ---
Consultation
-
Date/Time Consultation Requested: October 12, 2024 at 10 AM
Date/Time Consultation Performed: October 12, 2024 at 12:15 PM
Requesting Provider: Shahriar Umanzor PA-C
Performing Provider: Lucas Lizarraga PA-C for Teo Jenkins MD
Reason for Consultation: R reverse TSA 05/23/24 Dr Mcdowell
Consultation - Orthopedics
History
73-year-old female who is status post right reverse total shoulder arthroplasty May 24, [address] Mcdowell for shoulder fracture. Postoperatively she recuperated well and has done well until recently. About 2 weeks ago she was
doing something with her chickens and she fell on the right shoulder. There was minimal bruising and swelling afterwards. Within the past week shoulder pain and swelling got dramatically worse. She came to [facility] emergency room this
morning for evaluation. X-rays of the right shoulder show stable appearing reverse total shoulder arthroplasty without acute fracture or dislocation. She is afebrile and vital signs are stable while white count is normal, ESR 72 and CRP is 181.60.
Patient denies fevers or chills. She has no other painful joints or recent sickness. She denies any recent dental procedures. Orthopedics was asked to come evaluate her in the emergency room.
PMH:
GERD/PUD, hypertension, history hiatal hernia, hypercholesterolemia, chronic low back pain
PSH:
Gastric bypass surgery 1990s, lumbar laminectomy and reverse right total shoulder replacement May 24, [address] Mcdowell
SH:
Former smoker, drinks occasionally,
FH:
Non-contributory
ROS:
Review of systems essentially normal see HPI with regards to the right shoulder
Allergies / Home Medications
Allergy/AdvReac Type Severity Reaction Status Date / Time
No Known Allergies Allergy Verified 08/26/24 14:01
�Medication �Instructions �Recorded
atorvastatin 80 mg tablet 80 mg PO HS High cholesterol #0 10/22/22
tabs
multivitamin 1 tab PO DAILY Supplement #0 tabs 10/22/22
chromium picolinate 200 mcg tablet 200 mcg PO DAILY Supplement 11/23/22
collagen,hydrolysate 500 mg-biotin 1 cap PO DAILY Supplement 11/23/22
800 mcg-ascorbic acid 50 mg
capsule (Collagen 1500 Plus C)
magnesium 200 mg tablet 400 mg PO DAILY Supplement 11/23/22
cholecalciferol (vitamin D3) 25 25 mcg PO DAILY Supplement 11/28/22
mcg (1,000 unit) tablet
amlodipine 10 mg tablet 10 mg PO DAILY Blood pressure #0 12/19/22
tabs
losartan 100 mg tablet 100 mg PO DAILY Blood pressure #0 12/19/22
tabs
[place] 3-Turmeric 2 tab PO DAILY Supplement 05/08/23
acetaminophen 500 mg tablet 1,000 mg PO Q6HPRN PRN mild pain 05/08/23
(Tylenol Extra Strength)
ashwagandha root extract 300 mg 300 mg PO DAILY Supplement 05/08/23
capsule
aspirin 81 mg tablet,delayed 81 mg PO HS Blood Clot 05/08/23
release Prevention/Tx
coQ10 (ubiquinol) 200 mg capsule 200 mg PO DAILY Supplement 05/08/23
docusate sodium 100 mg capsule 100 mg PO HS Constipation 05/08/23
(Colace)
garlic 300 mg capsule 300 mg PO DAILY Supplement ##0 05/08/23
glucosamine sulf dipot 1 cap PO DAILY Supplement 05/08/23
chlr,msm,chond 550 mg-C 30 mg-tosin
1 mg capsule (Glucosamine
Chondroitin)
green tea leaf extract 1 cap PO DAILY Supplement 05/08/23
sennosides 8.6 mg tablet (senna) 17.2 mg PO HS Constipation 05/08/23
turmeric 400 mg capsule 400 mg PO DAILY Supplement 05/08/23
Dha W/ Vitamin D 1 tab PO DAILY Supplement 06/06/23
fluoxetine 20 mg capsule 60 mg PO DAILY Depression/Anxiety 06/06/23
pantoprazole 40 mg tablet,delayed 40 mg PO BID Gastrointestinal 06/08/23
release issue #60 tabs
sucralfate 100 mg/mL oral 1 gm PO Q6 #120 doses 06/08/23
suspension
ondansetron HCl 4 mg tablet 4 mg PO TID #60 tabs 06/20/23
albuterol sulfate 90 mcg/actuation 2 puff inhalation Q6H PRN 08/26/24
aerosol inhaler (Ventolin HFA) cough/shortness of breath #6.7
grams
Vital Signs / Lab Results
Temp Pulse Resp BP Pulse Ox
98.1 F 77 16 147/81 96
10/12/24 06:48 10/12/24 11:16 10/12/24 11:16 10/12/24 11:16 10/12/24 11:16
Right shoulder well-healed surgical incision. Mild to moderate effusion around the shoulder. Diffuse pain around the shoulder. No significant warmth or erythema appreciated. Post aspiration range of motion testing revealed external rotation 40
degrees, internal rotation 40 degrees and elevation 90 degrees with minimal pain. Distal neurovascular was grossly intact
10/12/24 08:12
10/12/24 08:12
ESR 72 and CRP 181.60
X-rays 3 views right shoulder in the emergency room today do not show acute fracture or dislocation. Reverse right total shoulder replacement appears stable. Callus formation noted around the medial aspect of the humerus from healed fracture.
There is what appears to be old calcification lateral to the prosthesis and inferior to the acromion.
Assessment / Plan
Reverse right total shoulder arthroplasty (after fractured humerus) with pain/swelling after fall
Shahriar Umanzor PA-C successfully aspirated approximately 20 mL bloody joint fluid from the anterior aspect of her shoulder via ultrasound. Fluid will be sent for cell count, Gram stain, crystal analysis along with aerobic/anaerobic cultures. I
suggest that we obtain CT scan of the right shoulder and she will be placed into a sling. Ice, limit activities and pain medication if needed throughout the weekend. She does not appear septic and her pain seems to be controlled. My inclination
is to send her home unless cell count and Gram stain are concerning for infection. If concerning for infection admit to hospitalist service, consult ID and I am on-call all weekend so certainly will follow-up with her. If she is able to go home
plan would be for her to follow-up with Dr. Mcdowell on Monday to review CT scan and cultures with definitive treatment recommendations.
[2024-10-12 13:32] LABS: Body Fluid Second Tech AMA
--- NOTE | 2024-10-12 14:47 | HPS.HSE ---
Addendum entered and electronically signed by Bernardino Syed MD 10/12/24 17:15:
This is an addendum to H&P written by Agueda Ramirez on 10/12/2024. �Patient seen and examined independently with PA.
73-year-old female past medical history of right reverse total shoulder arthroplasty in 2023, GERD/PUD, gastric bypass, hypertension, hiatal hernia, hypercholesteremia, chronic lower back pain, cholelithiasis, anxiety/depression, presenting with
fall onto right shoulder 2 weeks ago with worsening right shoulder pain with movement.
Vital signs unremarkable.
Labs show elevated CRP of 180.
Shoulder x-ray shows no radiographic evidence of acute complication after prior reverse total shoulder arthroplasty on the right. �CT scan shows subacute displaced fracture of the posterior cortex of the acromion, moderate subacromial/subdeltoid
bursitis, severe atrophy of the muscles of the rotator cuff,
Aspiration of the shoulder was performed with 20 cc bloody joint fluid drained from the shoulder with fluid studies sent. �Fluid studies showed 52,000 white blood cells.
Sling placed. �Apply ice and limit activities. �Pain control. �Patient clinically without signs of sepsis although joint fluid concerning for infection. Hold off antibiotics for now. ID consulted.
Original Note:
Family Physician
-
Family Physician: Violet Bell
Chief Complaint
-
Right Shoulder Pain
History of Present Illness
Patient is a 73 y/o female past medical history of hypertension, hyperlipidemia, depression and GERD who presents with right shoulder and decreased range of motion. Patient underwent right reverse total shoulder in May 2023 for right proximal
humerus fracture. Patient notes she sustained a fall aboutt= 2-3 weeks ago landing on the right shoulder. She states she may have had some bruising but initially was not having any pain. Over the past week she has developed increasing pain in the
shoulder with significantly decreased range of motion prompting her to come to the emergency department. Patient underwent arthrocenesis with 20mL blood fluid removed. Cell count revealed elevated WBC count with 96% PMNs. Patient denies any
fevers, sweats or chills.
Medical History
Past Medical History
Past Medical History: Reports Other
Additional Past Medical History:
Essential Hypertension
Hyperlipidemia
Depression
GERD / PUD
Past Surgical History: Reports Other
Additional Past Surgical History:
Right Reverse Total Shoulder Arthroplasty
Left Total Knee Replacement
Laminectomy
Bilateral Feet Surgeries
Gastric Bypass
Social History
Tobacco: Non-smoker
Alcohol: None
Drug: None
Family History
Family History: Not pertinent
Allergies / Home Medications
Allergies reflects when Allergies were last updated in [employer].
Home Medications with original date entered in [employer]
Allergy/Medication List:
Allergies
Allergy/AdvReac Type Severity Reaction Status Date / Time
No Known Allergies Allergy Verified 08/26/24 14:01
Home Medications
atorvastatin 80 mg tablet 80 mg PO HS High cholesterol #0 tabs 10/22/22
multivitamin 1 tab PO DAILY Supplement #0 tabs 10/22/22
chromium picolinate 200 mcg tablet 200 mcg PO DAILY Supplement 11/23/22
magnesium 200 mg tablet 400 mg PO HS Supplement 11/23/22
cholecalciferol (vitamin D3) 25 mcg (1,000 unit) tablet 25 mcg PO DAILY Supplement 11/28/22
losartan 100 mg tablet 100 mg PO DAILY Blood pressure #0 tabs 12/19/22
[place] 3-Turmeric 2 tab PO DAILY Supplement 05/08/23
acetaminophen 500 mg tablet (Tylenol Extra Strength) 1,500 mg PO DAILYPRN PRN mild pain 05/08/23
ashwagandha root extract 300 mg capsule 300 mg PO DAILY Supplement 05/08/23
aspirin 81 mg tablet,delayed release 81 mg PO HS Blood Clot Prevention/Tx 05/08/23
coQ10 (ubiquinol) 200 mg capsule 200 mg PO BID Supplement 05/08/23
docusate sodium 100 mg capsule (Colace) 100 mg PO HS Constipation 05/08/23
garlic 300 mg capsule 300 mg PO DAILY Supplement ##0 05/08/23
sennosides 8.6 mg tablet (senna) 8.6 mg PO BID Constipation 05/08/23
Dha W/ Vitamin D 1 tab PO DAILY Supplement 06/06/23
fluoxetine 20 mg capsule 60 mg PO DAILY Depression/Anxiety 06/06/23
cordyceps 500 mg capsule 500 mg PO DAILY 10/12/24
ezetimibe 10 mg tablet 10 mg PO DAILY 10/12/24
omega-3 fatty acids-fish oil 684 mg-1,200 mg capsule,delayed release 2 cap PO HS 10/12/24
oxycodone-acetaminophen 7.5 mg-325 mg tablet 1 tab PO Q6HPRN PRN mod pain 10/12/24
pantoprazole 40 mg tablet,delayed release 40 mg PO DAILY Gastrointestinal issue 10/12/24
Review of Systems
-
A 12 point ROS was completed and negative except as noted: Yes
Constitutional: Denies Fever or Chills
Respiratory: Denies Cough or Trouble Breathing
Cardiac: Denies Chest Pain or Palpitations
Physical Exam
Vital Signs
Vital Signs
Temp Pulse Resp BP Pulse Ox
98.1 F 86 16 131/83 97
10/12/24 06:48 10/12/24 14:35 10/12/24 14:35 10/12/24 14:35 10/12/24 14:35
Physical Exam
General: Comfortable and Conversant
HEENT: Anicteric and Moist mucous membranes
Respiratory: Clear and Non Labored Respirations
Cardiac: S1/S2 and Regular Rhythm
GI: Soft and Non Tender
Rectal: Deferred by Provider
Musculoskeletal: No Clubbing, No Cyanosis and Other (Right Upper Ext in Sling, Limited range of motion due to pain)
Skin: Warm and Dry
Neuro: Awake, Alert, Oriented and Nonfocal/grossly intact
Psych: Calm
Laboratory Results
-
10/12/24 08:12
10/12/24 08:12
Laboratory Results
Total Bilirubin 1.2 mg/dl (0.2-1.3) 10/12/24 08:12
AST 42 U/L (14-36) H 10/12/24 08:12
ALT 34 U/L (0-35) 10/12/24 08:12
Alkaline Phosphatase 116 U/L (38-126) 10/12/24 08:[address]:
1. SUBACUTE DISPLACED FRACTURE of the posterior cortex of the ACROMION (2.9 cm fracture fragment displaced posteriorly and inferiorly 1.1 cm)
2. Multiple corticated ossific fragments medial to the proximal humerus (largest 4.7 cm).
3. Moderate subacromial/subdeltoid bursitis.
4. Reverse right total shoulder arthroplasty in place.
5. Large distal clavicular osteophytes.
6. Severe atrophy of the muscles of the rotator cuff.
Data Reviewed
-
Lab Data: Labs Reviewed by me
Impression/Plan
-
Right Shoulder Pain: Fluid analysis concern for Periprosthetic Joint Infection
-Consult Orthopedics
-Consult Infectious Disease
-Await fluid gram stain and culture
-Possible washout per patient
-Hold on antibiotics pending ID consult
Essential Hypertension
-Continue losartan
Hyperlipidemia
-Continue atorvastatin and ezetimibe
Depression
-Continue fluoxetine
GERD
-Continue Protonix
DVT proph: SCDs
Code Status: Full Code
--- NOTE | 2024-10-12 15:43 | CM ---
CM reviewed chart and met with pt bedside in ED. Lives with in 2 story home, 2 THELMA has first floor half BA, second floor BR/full BA.
Independent in ADLs, personal care and ambulation at baseline. No DME.
Confirms prescription coverage.
Hx [facility] after knee replacement, no hx SNF.
PCP: Violet Bell
Pharmacy: [facility]
Anticipate discharge home, CM will continue to follow for any discharge planning needs.
--- NOTE | 2024-10-12 15:52 | CON.ID ---
Consultation
-
Date/Time Consultation Requested: October 12, 2024
Date/Time Consultation Performed: October 12, 2024 1550
Requesting Provider: Nancy Noriega PA-C
Performing Provider: Dr. Nu Mauro
Reason for Consultation: Concern for shoulder prosthetic infection
Chief Complaint / Past History
Chief Complaint
R Shoulder pain
History of Present Illness
73-year-old female with history of right reverse total shoulder arthroplasty in 2023 who presented to the ED today due to 4-day history of worsening right shoulder pain. Approximately 3 weeks ago, she was carrying her chickens outside in the dark
when she tripped and fell on her right shoulder. No open wounds. She sustained a bruise which eventually resolved. However, on Sunday 10/08 her right shoulder started to hurt. Pain became severe. She had difficulty moving her shoulder. She denies
fevers or chills. In ED afebrile, normal wbc. XRAY unremarkable. She underwent arthrocentesis with 20cc bloody fluid output 52,270 wbc, 96% polys. Subsequent CT showed subacute displaced fracture of the acromion, moderate subacromial bursitis.
Past History
Additional Past Medical History:
Hypertension
Dyslipidemia
PUD
Chronic back pain
Shoulder fracture status post right reverse total shoulder arthroplasty 05/24/2023
Left total knee replacement
Lumbar laminectomy
Gastric bypass
Allergy History:
No Known Allergies Allergy (Verified 08/26/24 14:01)
Medications Reviewed: Yes
Current Antibiotics:
None
Social History
Tobacco: Former Smoker
Alcohol: Occasional
Drug: None
Personal:
Family History
Family History: Not Pertinent
Review of Systems
Review of Systems
General: Negative Fever, Chills or Change in Appetite
HEENT: Negative Sinus Problems or Headache
Cardiovascular: Negative Chest Pain or Dyspnea
Respiratory: Negative Dyspnea or Cough
Gasteroenterology: Negative Nausea, Vomiting or Diarrhea
Genital / Urological: Negative Dysuria or Flank Pain
Endocrine: Negative Weakness
All systems: All other systems were reviewed and were negative
Vital Signs
Temp Pulse Resp BP Pulse Ox
98.1 F 86 16 131/83 97
10/12/24 06:48 10/12/24 14:35 10/12/24 14:35 10/12/24 14:35 10/12/24 14:35
Physical Exam
Physical Exam
Constitutional: Other (Uncomfortable due to pain)
Eyes: No Conjunctival Hemorrhage and Sclera Anicteric
Cardiovascular: Regular Rate and S1/S2
Pulmonary: Clear
Gastrointestinal: Soft, Non Tender, Non Distended and Normal Bowel Sounds
Extremities: Negative Edema
Musculoskeletal: Other (Right shoulder positive edema, mildly warm, no erythema.)
Neurological: AO x 3
Lab / Diagnostic Study Results
10/12/24 08:12
10/12/24 08:12
Abs Immat Gran (auto) 0.0 10^3/uL (0-0.05) 10/12/24 08:12
Absolute Neuts (auto) 6.4 10^3/uL (1.4-6.5) 10/12/24 08:12
Absolute Lymphs (auto) 1.1 10^3/uL (1.2-3.4) L 10/12/24 08:12
Absolute Monos (auto) 1.0 10^3/uL (0.1-0.6) H 10/12/24 08:12
Absolute Basos (auto) 0.0 10^3/uL (0-0.2) 10/12/24 08:12
Immature Gran % 0.2 % (0-0.5) 10/12/24 08:12
Neutrophils % 74.2 % (42.2-75.2) 10/12/24 08:12
Lymphocytes % 12.8 % (20.5-51.1) L 10/12/24 08:12
Monocytes % 11.7 % (1.7-9.3) H 10/12/24 08:12
Eosinophils % 1.0 % (0-6) 10/12/24 08:12
Basophils % 0.1 % (0-2) 10/12/24 08:12
ESR 72 mm/hour (0-20) H 10/12/24 08:12
C-Reactive Protein 181.60 mg/L (0.0-10.00) H 10/12/24 08:12
Microbiology Results
Micro:
10/12/24 12:29 Body Fluid Culture - Pending
Joint Fluid Gram Stain - Pending
10/12/24 CT RUE:
SUBACUTE DISPLACED FRACTURE of the posterior cortex of the ACROMION (2.9 cm fracture fragment displaced posteriorly and inferiorly 1.1 cm)
2. Multiple corticated ossific fragments medial to the proximal humerus (largest 4.7 cm).
3. Moderate subacromial/subdeltoid bursitis.
4. Reverse right total shoulder arthroplasty in place.
Assessment / Plan
# Subacute Right acromion displaced fracture (recent fall)
- hx R reverse TSA 2023
- Synovial fluid 69487 wbc, 96% polys
Synovial fluid culture
- Recommend observe off antibiotic unless cx is positve.
[2024-10-12] MEDS: ROXICODONE 5 MG PO ×2 (16:01→22:55)
[2024-10-12] MEDS: DILAUDID 0.25 MG IV ×2 (16:42→18:09)
--- NOTE | 2024-10-12 18:10 | PTCARENOTE ---
rec'd pt from ER. walked in to bed. right arm in sling. pt with complaint of pain 8/[address] . [address] Syed aware and ordered a stat 0.25mg dose of Dilaudid. oriented to room. call galeas in reach.
[2024-10-12] MEDS: SENOKOT 8.6 MG PO (20:04)
[2024-10-12] MEDS: COLACE 100 MG PO (21:26)
[2024-10-12] MEDS: ASPIR LOW (ENTERIC COATED) 81 MG PO (21:26)
[2024-10-12] MEDS: LIPITOR 80 MG PO (21:26)
[2024-10-12] MEDS: TYLENOL 650 MG PO (23:00)
[2024-10-13] MEDS: DILAUDID 0.5 MG IV ×6 (04:12→23:28)
[2024-10-13 07:00] VITALS: BP 143/78
--- NOTE | 2024-10-13 07:53 | W.PN.UPDATE ---
Update Note
Progress Note Update
Patient's CT scan of the right shoulder confirmed stable appearing prosthesis, subacute fracture of the acromion and bursitis. Cell count from the fluid showed WBCs 52,270 with PMN 96.4. Cultures still pending. Overnight she did have moderate
discomfort about the shoulder. She is afebrile and vital signs stable. Incision well-healed without warmth or erythema. Generalized pain over the anterior lateral aspect of the shoulder. Passive motion still painful. Distal neurovascular was
intact. For now continued observation. Sling for comfort, ice and current pain control regimen. I have tentatively consented her for right shoulder irrigation and debridement with possible explant and antibiotic spacer versus polyethylene
exchange for Tuesday, October 15, [address] Mcdowell pending culture results.
[2024-10-13] MEDS: PROTONIX 40 MG PO (08:21)
[2024-10-13] MEDS: PROZAC 60 MG PO (08:21)
[2024-10-13] MEDS: COZAAR 100 MG PO (08:21)
[2024-10-13] MEDS: SENOKOT 8.6 MG PO ×2 (08:22→19:43)
[2024-10-13] MEDS: ZETIA 10 MG PO (08:22)
--- NOTE | 2024-10-13 12:05 | W.PN.ID1 ---
Date of Service
Date of Service: October 13, 2024
Today's Communication
Continue to hold abx
Assessment / Plan
# Subacute Right acromion displaced fracture (recent fall)
#hx R reverse TSA 2023
- Synovial fluid 43293 wbc, 96% polys
Synovial fluid gram stain: GNR, Fluid cx pending
- Pt stable, continue to observe off antibiotic while awaiting fluid cx.
- To OR on Tues, per Ortho
# Conditions prior to admission
Hypertension
Dyslipidemia
PUD
Chronic back pain
Shoulder fracture status post right reverse total shoulder arthroplasty 05/24/2023
Bilateral total knee replacement
Lumbar laminectomy
Gastric bypass
Chief Complaint
-: Other (Shoulder pain)
Subjective / Review of Systems
Pain better controlled.
Vital Signs / Physical Exam
Vital Signs
Vital Signs
Temp Pulse Resp BP Pulse Ox
97.8 F 82 18 143/78 97
10/13/24 07:00 10/13/24 07:00 10/13/24 07:00 10/13/24 07:00 10/13/24 07:30
Physical Exam
Constitutional: No Acute Distress
Cardiovascular: Regular Rate and S1/S2
Pulmonary: Clear
Gastrointestinal: Soft, Non Tender and Non Distended
Musculoskeletal: Other (Right shoulder edema/warmth, no erythema)
Neurological: AO x 3
Objective Data
Lab Data
Lab Results
10/12/24 08:12
10/12/24 08:12
ESR 72 mm/hour (0-20) H 10/12/24 08:12
Estimated Creat Clear 92 ml/min 10/12/24 08:12
Total Bilirubin 1.2 mg/dl (0.2-1.3) 10/12/24 08:12
AST 42 U/L (14-36) H 10/12/24 08:12
ALT 34 U/L (0-35) 10/12/24 08:12
Alkaline Phosphatase 116 U/L (38-126) 10/12/24 08:12
C-Reactive Protein 181.60 mg/L (0.0-10.00) H 10/12/24 08:12
Most recent labs reviewed.
Micro Results:
10/12/24 12:29 Body Fluid Culture - Pending
Joint Fluid Gram Stain - Preliminary
10/12/24 CT RUE:
SUBACUTE DISPLACED FRACTURE of the posterior cortex of the ACROMION (2.9 cm fracture fragment displaced posteriorly and inferiorly 1.1 cm)
2. Multiple corticated ossific fragments medial to the proximal humerus (largest 4.7 cm).
3. Moderate subacromial/subdeltoid bursitis.
4. Reverse right total shoulder arthroplasty in place.
Care Review
Plan reviewed with: Physician (Dr. Yu)
[2024-10-13] MEDS: LIDOCAINE 4% PATCH 1 PATCH TOPICAL (12:43)
[2024-10-13] MEDS: ROXICODONE 5 MG PO ×2 (12:43→19:42)
--- NOTE | 2024-10-13 14:27 | W.PN.HOSP.TC ---
Today's Communication/Plan
-
OR wash out per ortho
Assessment / Plan
Assessment / Plan
73-year-old female underwent right shoulder arthroplasty May 2023. She sustained a fall 2 to 3 weeks ago landing on the right shoulder and started having bruising and pain. Pain kept increasing. In the ER she underwent arthrocentesis
On examination tenderness right shoulder, increased warmth
Cardiovascular system S1-S2 appreciated
Chest clear to auscultation
Abdomen soft and nontender
Decreased range of motion right shoulder
# Pain right shoulder
Possible septic arthritis with synovial fluid with more than 52,000 WBCs fluid Gram stain gram-negative rods cultures pending
Subacute right acromion displaced fracture-traumatic
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
Per discussion with ID observe off of antibiotic
OR Monday or Monday for I and D
Pain control-lidocaine patch and oral analgesics
# Hyperlipidemia-continue atorvastatin, Zetia
# Hypertension-continue losartan
# Depression-continue fluoxetine
# Peptic ulcer disease-continue PPI
# Chronic back pain history of lumbar laminectomy/
# History of gastric bypass surgery
# History of migraines
# Obesity per BMI
# Ex-smoker
# DVT prophylaxis-Lovenox
# Full code
Our team discussed with infectious disease
Part of this note was created using voice recognition system. Occasional wrong word or��sound alike� substitutions may have inadvertently occurred due to the inherent limitations of voice recognition software. If noted kindly bring it to my
attention for correction.
Anticipated Discharge: > 48 hours
Subjective/Interval History
-
Date of Service: October 13, 2024
Objective Data
-
Vital Signs:
Vital Signs
Temp Pulse Resp BP Pulse Ox
97.8 F 82 18 143/78 97
10/13/24 07:00 10/13/24 07:00 10/13/24 07:00 10/13/24 07:00 10/13/24 07:30
[2024-10-13 15:17] VITALS: BP 114/82
[2024-10-13] MEDS: MIRALAX 17 GRAMS PO (15:29)
[2024-10-13 15:37] LABS: Urine Character Slightly Cloudy (Clear)
[2024-10-13 16:30] LABS: Hepatitis C Antibody Negative (Negative)
[2024-10-13 17:07] LABS: Vitamin B12 995 pg/ml (239-931)
[2024-10-13] MEDS: LOVENOX 40 MG SC (17:09)
[2024-10-13] MEDS: ASPIR LOW (ENTERIC COATED) 81 MG PO (19:44)
[2024-10-13] MEDS: LIPITOR 80 MG PO (19:44)
[2024-10-13] MEDS: COLACE 100 MG PO (19:44)
[2024-10-13] MEDS: FLUSH (NSS) 2 FLUSH IV (20:29)
[2024-10-13] MEDS: REMOVE LIDOCAINE PATCH REMOVE (21:36)
[2024-10-13 23:21] VITALS: BP 121/78
[2024-10-14] MEDS: FLUSH (NSS) 3 FLUSH IV (03:46)
[2024-10-14] MEDS: DILAUDID 0.5 MG IV ×6 (03:46→21:43)
[2024-10-14 07:10] LABS: Hematocrit 34.1 % (37.0-47.0); Hemoglobin 11.8 g/dL (12.0-16.0); Mean Corp Hgb Conc. 34.6 g/dL (33.0-37.0); Mean Corpuscular Volume 98.0 fL (81.0-99.0); Platelet Count 227 10^3/uL (130-400); Red Cell Dist. Width 13.3 % (11.5-14.5)
--- NOTE | 2024-10-14 07:11 | W.PN.UPDATE ---
Update Note
Progress Note Update
The patient was seen and examined by Orthopedic surgery this morning on rounds. She is resting in bed comfortably. She reports continued pain in her right shoulder. She denies any constitutional symptoms and VSS. AM labs currently pending.
Preliminary Gram stain (+) Gram Negative Bacilli. Fluid cultures, blood cultures and urine cultures pending.
Plan for RIGHT shoulder irrigation and debridement with possible explant and antibiotic spacer vs. polyethylene exchange 10/15/2024 under the direction of Dr. Mcdowell.
NPO pMN 10/14/2024 for surgery tomorrow. Surgical and blood consent obtained in patient chart. Please HOLD PM dose of Lovenox. Orthopedic surgery will continue to follow along.
[2024-10-14 07:34] VITALS: BP 143/85
[2024-10-14] MEDS: LIDOCAINE 4% PATCH 1 PATCH TOPICAL (07:48)
[2024-10-14] MEDS: MIRALAX 17 GRAMS PO (07:48)
[2024-10-14] MEDS: SENOKOT 8.6 MG PO ×2 (07:49→19:34)
[2024-10-14] MEDS: PROZAC 60 MG PO (07:49)
[2024-10-14] MEDS: ZETIA 10 MG PO (07:49)
[2024-10-14] MEDS: PROTONIX 40 MG PO (07:51)
[2024-10-14] MEDS: COZAAR 100 MG PO (07:51)
[2024-10-14 07:52] LABS: Blood Urea Nitrogen 11 mg/dl (7-17); Calcium 9.6 mg/dl (8.4-10.2); Carbon Dioxide 29 mmol/L (22-30); Chloride 104 mmol/L (98-107); Estimated Creatinine Clearance 92 ml/min; Glucose 110 mg/dl (70-99); Potassium 4.7 mmol/L (3.5-5.1); Sodium 138 mmol/L (135-145); eGFR > 60.00
--- NOTE | 2024-10-14 09:34 | W.PN.ID1 ---
Date of Service
Date of Service: October 14, 2024
Today's Communication
Start cefepime.
See below.
Assessment / Plan
# Late Right shoulder PJI
# GNR bacteremia
# Subacute Right acromion displaced fracture (recent fall)
#hx R reverse TSA 2023
- Synovial fluid 34207 wbc, 96% polys
Synovial fluid gram stain: GNR, Fluid cx GNR
- blood cx GNR
- Start cefepime 1g IV q6h.
-Repeat Bcx's in AM
- Discussed with Ortho - need for OR washout, hardware removal, if able.
# Conditions prior to admission
Hypertension
Dyslipidemia
PUD
Chronic back pain
Shoulder fracture status post right reverse total shoulder arthroplasty 05/24/2023
Bilateral total knee replacement
Lumbar laminectomy
Gastric bypass
Chief Complaint
-: Other (Shoulder pain)
Subjective / Review of Systems
Shoulder pain controlled
Vital Signs / Physical Exam
Vital Signs
Vital Signs
Temp Pulse Resp BP Pulse Ox
98.6 F 87 17 143/85 97
10/14/24 07:34 10/14/24 07:51 10/14/24 07:34 10/14/24 07:51 10/14/24 07:34
Physical Exam
Constitutional: No Acute Distress
Cardiovascular: Regular Rate and S1/S2
Pulmonary: Clear
Gastrointestinal: Soft, Non Tender and Non Distended
Musculoskeletal: Other (Right shoulder edema/warmth, no erythema)
Neurological: AO x 3
Objective Data
Lab Data
Lab Results
10/14/24 06:26
10/14/24 06:26
ESR 72 mm/hour (0-20) H 10/12/24 08:12
Estimated Creat Clear 92 ml/min 10/14/24 06:26
Total Bilirubin 1.2 mg/dl (0.2-1.3) 10/12/24 08:12
AST 42 U/L (14-36) H 10/12/24 08:12
ALT 34 U/L (0-35) 10/12/24 08:12
Alkaline Phosphatase 116 U/L (38-126) 10/12/24 08:12
C-Reactive Protein 181.60 mg/L (0.0-10.00) H 10/12/24 08:12
Most recent labs reviewed.
Micro Results:
10/12/24 12:29 Body Fluid Culture - Preliminary
Joint Fluid Gram negative bacilli
Gram Stain - Preliminary
10/13/24 12:48 Blood Culture - Preliminary
Blood/Venous Positive culture in progress
Gram Stain - Preliminary
10/13/24 15:29 Urine Culture - Pending
Urine
10/13/24 12:24 Blood Culture - Pending
Blood/Venous
10/12/24 CT RUE:
SUBACUTE DISPLACED FRACTURE of the posterior cortex of the ACROMION (2.9 cm fracture fragment displaced posteriorly and inferiorly 1.1 cm)
2. Multiple corticated ossific fragments medial to the proximal humerus (largest 4.7 cm).
3. Moderate subacromial/subdeltoid bursitis.
4. Reverse right total shoulder arthroplasty in place.
Care Review
Plan reviewed with: Physician and Other Provider
Total Time Spent with Patient (in minutes): Hospitalist team, Ortho
[2024-10-14] MEDS: ROXICODONE 5 MG PO ×2 (10:12→16:22)
[2024-10-14] MEDS: MAXIPIME 1000 MG IV ×3 (10:13→21:41)
[2024-10-14] MEDS: STERILE WATER FOR INJECTION 10 ML IV ×3 (10:13→21:42)
--- NOTE | 2024-10-14 10:34 | CM ---
Chart reviewed. Care ongoing
For OR tomorrow for I and D
Start IV Cefepime
Plan: CM will cont to follow for d/c planning
[2024-10-14 15:14] VITALS: BP 137/74
--- NOTE | 2024-10-14 15:19 | W.PN.UPDATE ---
Update Note
Progress Note Update
73-year-old female underwent right shoulder arthroplasty May 2023. She sustained a fall 2 to 3 weeks ago landing on the right shoulder and started having bruising and pain. Pain kept increasing. In the ER she underwent arthrocentesis
On examination tenderness right shoulder, increased warmth
Cardiovascular system S1-S2 appreciated
Chest clear to auscultation
Abdomen soft and nontender
Decreased range of motion right shoulder
# Pain right shoulder
Possible septic arthritis with synovial fluid with more than 52,000 WBCs fluid Gram stain gram-negative rods cultures pending
Subacute right acromion displaced fracture-traumatic
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
Per discussion with ID observe off of antibiotic
OR Monday for I and D, n.p.o. after midnight
Pain control-lidocaine patch and other analgesics
# Klebsiella bacteremia
Source unclear
Started on cefepime
Infectious disease following
Repeat blood cultures in the morning
# Hyperlipidemia-continue atorvastatin, Zetia
# Hypertension-continue losartan
# Depression-continue fluoxetine
# Peptic ulcer disease-continue PPI
# Chronic back pain history of lumbar laminectomy
# History of gastric bypass surgery
# History of migraines
# Obesity per BMI
# Ex-smoker
# DVT prophylaxis-Lovenox
# Full code
Our team discussed with infectious disease
Spoke to and updated.
Part of this note was created using voice recognition system. Occasional wrong word or��sound alike� substitutions may have inadvertently occurred due to the inherent limitations of voice recognition software. If noted kindly bring it to my
attention for correction.
--- NOTE | 2024-10-14 16:36 | W.PN.HOSP.TC ---
Today's Communication/Plan
-
For right shoulder incision and drainage tomorrow, n.p.o. at midnight and hold evening Lovenox.
Gram-negative bacilli in 1 of 2 blood cultures (Klebsiella), urine culture, and arthrocentesis culture. Repeat blood cultures tomorrow morning.
Assessment / Plan
Assessment / Plan
73-year-old female underwent right shoulder arthroplasty May 2023. She sustained a fall 2 to 3 weeks ago landing on the right shoulder and started having bruising and pain. Pain kept increasing. In the ER she underwent arthrocentesis
# Pain right shoulder
Possible septic arthritis with synovial fluid with more than 52,000 WBCs fluid Gram stain gram-negative rods cultures pending
Subacute right acromion displaced fracture-traumatic
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
�Per discussion with ID, observe off of antibiotic
�Pain control-lidocaine patch and oral analgesics
�For right shoulder incision and drainage tomorrow 10/15/2024, n.p.o. at midnight and hold evening Lovenox. Coags ordered. BMP, CBC, type and screen within normal limits
# Klebsiella bacteremia
Source unclear
1) arthrocentesis culture positive for gram-negative bacilli
2) urine culture positive for gram-negative bacilli
3) 1 blood culture positive for Klebsiella, while other has no growth in 24 hours
�Repeat blood cultures in the morning 10/15/2024
Started on cefepime
Infectious disease following
# Hyperlipidemia-continue atorvastatin, Zetia
# Hypertension-continue losartan
# Depression-continue fluoxetine
# Peptic ulcer disease-continue PPI
# Chronic back pain. History of lumbar laminectomy
# History of gastric bypass surgery
# History of migraines
# Ex-smoker
# DVT prophylaxis-Lovenox
# Full code
Part of this note was created using voice recognition system. Occasional wrong word or��sound alike� substitutions may have inadvertently occurred due to the inherent limitations of voice recognition software. If noted kindly bring it to my
attention for correction.
Anticipated Discharge: > 48 hours
Subjective/Interval History
-
Date of Service: October 14, 2024
No acute events overnight. Patient reports her right shoulder is sensitive/painful to abduction and palpation.
Objective Data
-
Labs:
Laboratory Results
10/14/24
06:26
WBC 5.7
Hgb 11.8 L
Hct 34.1 L
Plt Count 227
Sodium 138
Potassium 4.7
Chloride 104
Carbon Dioxide 29
BUN 11
Creatinine 0.5 L
Glucose 110 H
Calcium 9.6
Vital Signs:
Vital Signs
Temp Pulse Resp BP Pulse Ox
98.1 F 83 17 137/74 99
10/14/24 15:14 10/14/24 15:14 10/14/24 15:14 10/14/24 15:14 10/14/24 15:14
I&O
10/13/24 10/14/24 10/15/24
06:59 06:59 06:59
Intake Total 1280 / 1280
Balance 1280 / 1280
Review of Systems
-
History Source: Patient
Constitutional: Reports No Symptoms
EENT: Reports No Symptoms Reported
Respiratory: Reports No Symptoms
Cardiac: Reports No Symptoms
Abdomen/GI: Reports No Symptoms
Genitourinary: Reports No Symptoms
Musculoskeletal: Reports Joint Pain (Right shoulder joint pain)
Skin: Reports No Symptoms
Neuro: Reports No Symptoms
Physical Exam
-
General: Well Developed, Well Nourished and No Apparent Distress
HEENT: Normocephalic, Atraumatic, Moist Mucous Membranes, Nose Appears Normal and Ears Appear Normal
Respiratory: Clear to Auscultation
Cardiac: Regular Rhythm
GI: Soft, Nontender, Nondistended and Normal Bowel Sounds
Musculoskeletal: No Clubbing, No Cyanosis and Other (Pain to light palpation of right shoulder; right shoulder range of motion limited by pain)
Skin: Warm and Dry
Neuro: Awake, Alert and Oriented
Psych: Anxious
Data Reviewed
-
Total Time Spent with Patient (in minutes): 35
Diagnostic Radiology: Report Reviewed by me
CT Scan: Report Reviewed by me
Labs: Labs Reviewed by me
[2024-10-14] MEDS: REMOVE LIDOCAINE PATCH 1 PATCH REMOVE (19:33)
[2024-10-14] MEDS: ASPIR LOW (ENTERIC COATED) 81 MG PO (19:34)
[2024-10-14] MEDS: COLACE 100 MG PO (19:34)
[2024-10-14] MEDS: LIPITOR 80 MG PO (19:34)
[2024-10-14 23:08] VITALS: BP 119/72
[2024-10-15] VITALS (12 sets, daily range): BP systolic 90–128; BP diastolic 51–69
[2024-10-15] MEDS: DILAUDID 0.5 MG IV ×3 (02:40→10:57)
[2024-10-15] MEDS: ROXICODONE 5 MG PO (03:56)
[2024-10-15] MEDS: MAXIPIME 1000 MG IV ×2 (03:57→09:09)
[2024-10-15] MEDS: STERILE WATER FOR INJECTION 10 ML IV ×2 (03:57→09:10)
[2024-10-15 06:45] LABS: Hematocrit 33.5 % (37.0-47.0); Hemoglobin 11.2 g/dL (12.0-16.0); Mean Corp Hgb Conc. 33.4 g/dL (33.0-37.0); Mean Corpuscular Volume 96.8 fL (81.0-99.0); Nucleated Red Blood Cells % 0 %; Platelet Count 269 10^3/uL (130-400); Red Cell Dist. Width 13.0 % (11.5-14.5)
[2024-10-15 06:47] LABS: INR 1.03; PT 13.8 Sec (11.4-14.6)
[2024-10-15 06:48] LABS: APTT 34.6 Sec (23.4-35.0)
[2024-10-15] MEDS: LIDOCAINE 4% PATCH 1 PATCH TOPICAL (07:47)
[2024-10-15] MEDS: MIRALAX PO (07:50)
[2024-10-15] MEDS: PROZAC 60 MG PO (07:50)
[2024-10-15] MEDS: COZAAR 100 MG PO (07:51)
[2024-10-15] MEDS: PROTONIX 40 MG PO (07:51)
[2024-10-15] MEDS: ZETIA 10 MG PO (07:51)
[2024-10-15] MEDS: SENOKOT 8.6 MG PO ×2 (07:52→21:00)
[2024-10-15 08:19] LABS: Blood Urea Nitrogen 9 mg/dl (7-17); Calcium 9.6 mg/dl (8.4-10.2); Carbon Dioxide 27 mmol/L (22-30); Chloride 103 mmol/L (98-107); Estimated Creatinine Clearance 92 ml/min; Glucose 116 mg/dl (70-99); Potassium 4.4 mmol/L (3.5-5.1); Sodium 137 mmol/L (135-145); eGFR > 60.00
--- NOTE | 2024-10-15 11:33 | W.PN.ID1 ---
Date of Service
Date of Service: October 15, 2024
Today's Communication
De-escalate cefepime to ceftriaxone 2g IV q24h.
Assessment / Plan
# Late Right shoulder PJI with Klebsiella
# Klebsiella bacteremia from PJI source
# Asymptomatic polymicrobial bacteruria
# Subacute Right acromion displaced fracture (recent fall)
#hx R reverse TSA 2023
- Synovial fluid 36173 wbc, 96% polys
Synovial fluid cx Klebsiella
- blood cx 1 of 2 sets: Klebsiella
- To OR today
- De-escalate cefepime to ceftriaxone 2g IV q24h.
- Will need at least 6 weeks of Iv abx.
Infusion sheet submitted to home health care case manager.
# Conditions prior to admission
Hypertension
Dyslipidemia
PUD
Chronic back pain
Shoulder fracture status post right reverse total shoulder arthroplasty 05/24/2023
Bilateral total knee replacement
Lumbar laminectomy
Gastric bypass
Chief Complaint
-: Other (Shoulder pain)
Subjective / Review of Systems
No new complaints.
Never had urine sxs.
Vital Signs / Physical Exam
Vital Signs
Vital Signs
Temp Pulse Resp BP Pulse Ox
98.8 F 80 16 128/65 96
10/15/24 08:12 10/15/24 08:12 10/15/24 08:12 10/15/24 08:12 10/15/24 08:12
Physical Exam
Constitutional: Comfortable
Eyes: No Conjunctival Hemorrhage and Sclera Anicteric
Cardiovascular: Regular Rate and S1/S2
Pulmonary: Clear
Gastrointestinal: Soft, Non Tender, Non Distended and Normal Bowel Sounds
Musculoskeletal: Other (Right shoulder + edema/warmth)
Neurological: AO x 3
Objective Data
Lab Data
Lab Results
10/15/24 06:12
10/15/24 06:12
ESR 72 mm/hour (0-20) H 10/12/24 08:12
PT 13.8 Sec (11.4-14.6) 10/15/24 06:12
INR 1.03 10/15/24 06:12
APTT 34.6 Sec (23.4-35.0) 10/15/24 06:12
Estimated Creat Clear 92 ml/min 10/15/24 06:12
Total Bilirubin 1.2 mg/dl (0.2-1.3) 10/12/24 08:12
AST 42 U/L (14-36) H 10/12/24 08:12
ALT 34 U/L (0-35) 10/12/24 08:12
Alkaline Phosphatase 116 U/L (38-126) 10/12/24 08:12
C-Reactive Protein 181.60 mg/L (0.0-10.00) H 10/12/24 08:12
Most recent labs reviewed.
Micro Results:
10/13/24 15:29 Urine Culture - Preliminary
Urine Gram negative bacilli
Escherichia coli
10/12/24 12:29 Body Fluid Culture - Final
Joint Fluid Klebsiella pneumoniae
Gram Stain - Final
10/15/24 06:42 Blood Culture - Pending
Blood/Venous
10/15/24 06:12 Blood Culture - Pending
Blood/Venous
10/13/24 12:24 Blood Culture - Preliminary
Blood/Venous No Growth in 24 hours- Final report to follow
10/13/24 12:48 Blood Culture - Preliminary
Blood/Venous Klebsiella pneumoniae group
Gram Stain - Preliminary
10/12/24 CT RUE:
SUBACUTE DISPLACED FRACTURE of the posterior cortex of the ACROMION (2.9 cm fracture fragment displaced posteriorly and inferiorly 1.1 cm)
2. Multiple corticated ossific fragments medial to the proximal humerus (largest 4.7 cm).
3. Moderate subacromial/subdeltoid bursitis.
4. Reverse right total shoulder arthroplasty in place.
[2024-10-15] MEDS: STERILE WATER FOR INJECTION 20 ML IV (11:40)
[2024-10-15] MEDS: ROCEPHIN 2000 MG IV (11:40)
--- NOTE | 2024-10-15 13:23 | CM ---
Addendum entered by Oliver Weaver 10/15/24 14:19:
Spoke w/ patient's spouse regarding her abx needs at d/c. Spouse agreed to use [facility] as the home infusion company. Spouse was made aware that he and/or spouse will be taught how to administer the abx at home.
CM faxed script and referral to [facility], left Mayra/jack a message regarding referral
Plan: Home w/ IV abx
Original Note:
Chart reviewed. Patient for OR today
Patient will require continuous IV abx at d/c. ID provided script
Attempted to discuss w/ patient, however, was off the floor
--- NOTE | 2024-10-15 16:08 | W.PN.UPDATE ---
Update Note
Progress Note Update
Seen earlier today with residents. Agree with plan put forth by resident. See changes in my documentation
Late documentation
73-year-old female underwent right shoulder arthroplasty May 2023. She sustained a fall 2 to 3 weeks ago landing on the right shoulder and started having bruising and pain. Pain kept increasing. In the ER she underwent arthrocentesis
On examination tenderness right shoulder, increased warmth
Cardiovascular system S1-S2 appreciated
Chest clear to auscultation
Abdomen soft and nontender
Decreased range of motion right shoulder
# Pain right shoulder
Possible septic arthritis with synovial fluid with more than 52,000 WBCs fluid ,Klebsiella in Cx
Subacute right acromion displaced fracture-traumatic
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
OR today for I and D
Pain control-lidocaine patch and other analgesics
# Klebsiella bacteremia
Source unclear
Started on cefepime
Infectious disease following
Repeat blood cultures
# Hyperlipidemia-continue atorvastatin, Zetia
# Hypertension-continue losartan
# Depression-continue fluoxetine
# Peptic ulcer disease-continue PPI
# Chronic back pain history of lumbar laminectomy
# History of gastric bypass surgery
# History of migraines
# Obesity per BMI
# Ex-smoker
# DVT prophylaxis-Lovenox tomorrow
# Full code
D/W Ortho
Part of this note was created using voice recognition system. Occasional wrong word or��sound alike� substitutions may have inadvertently occurred due to the inherent limitations of voice recognition software. If noted kindly bring it to my
attention for correction.
--- NOTE | 2024-10-15 16:44 | W.PN.HOSP.TC ---
Today's Communication/Plan
-
Incision and drainage of right shoulder today.
Arthrocentesis culture grew Klebsiella, like the blood culture. Urine culture grew E. coli and 1 other unidentified gram-negative ying. De-escalated from cefepime to ceftriaxone, per ID.
Assessment / Plan
Assessment / Plan
73-year-old female underwent right shoulder arthroplasty May 2023. She sustained a fall 2 to 3 weeks ago landing on the right shoulder and started having bruising and pain. Pain kept increasing. In the ER she underwent arthrocentesis
Incision and drainage of right shoulder 10/15/2024.
Arthrocentesis culture grew Klebsiella, like the blood culture. Urine culture grew E. coli and 1 other unidentified gram-negative ying. Switch from cefepime to ceftriaxone, per ID.
# Pain right shoulder
Possible septic arthritis with synovial fluid with more than 52,000 WBCs fluid Gram stain gram-negative rods cultures pending
Subacute right acromion displaced fracture-traumatic
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
�Pain control-lidocaine patch and oral analgesics
�Incision and drainage of right shoulder 10/15/2024.
# Klebsiella bacteremia
Source unclear
1) arthrocentesis culture positive for Klebsiella
� Pending I&D cultures
2) urine culture positive for E. coli and an unidentified gram-negative bacilli
3) 1 blood culture positive for Klebsiella, while other has no growth in 24 hours
�Repeat blood cultures in the morning 10/15/2024
Infectious disease following
�Started on cefepime. De-escalated to ceftriaxone after sensitivities resulted
# Hyperlipidemia-continue atorvastatin, Zetia
# Hypertension-continue losartan
# Depression-continue fluoxetine
# Peptic ulcer disease-continue PPI
# Chronic back pain. History of lumbar laminectomy
# History of gastric bypass surgery
# History of migraines
# Ex-smoker
# DVT prophylaxis-Lovenox
# Full code
Part of this note was created using voice recognition system. Occasional wrong word or��sound alike� substitutions may have inadvertently occurred due to the inherent limitations of voice recognition software. If noted kindly bring it to my
attention for correction.
Anticipated Discharge: 24 - 48 hours
Subjective/Interval History
-
Date of Service: October 15, 2024
No acute events overnight. Patient had no complaints. She was anxious/curious about what procedure she received today, since she has her variations from different providers. This may be a prior surgery that has decided after surgical
expiration/examination. Her surgeon was notified of her questions.
Objective Data
-
Labs:
Laboratory Results
10/15/24
06:12
WBC 6.7
Hgb 11.2 L
Hct 33.5 L
Plt Count 269
PT 13.8
INR 1.03
APTT 34.6
Sodium 137
Potassium 4.4
Chloride 103
Carbon Dioxide 27
BUN 9
Creatinine 0.5 L
Glucose 116 H
Calcium 9.6
Vital Signs:
Vital Signs
Temp Pulse Resp BP Pulse Ox
97.2 F 79 24 102/67 100
10/15/24 16:15 10/15/24 16:30 10/15/24 16:30 10/15/24 16:30 10/15/24 16:30
I&O
10/14/24 10/15/24 10/16/24
06:59 06:59 06:59
Intake Total 1280 / 1280 900 / 900
Balance 1280 / 1280 900 / 900
Review of Systems
-
History Source: Patient
All other systems: Reviewed and negative
Musculoskeletal: Reports Joint Pain (Continued right shoulder pain to movement and palpation)
Psych: Reports Anxious
Physical Exam
-
General: Well Developed, Well Nourished, No Apparent Distress and Comfortable
HEENT: Normocephalic, Atraumatic, Moist Mucous Membranes, Nose Appears Normal and Ears Appear Normal
Respiratory: Clear to Auscultation
Cardiac: Regular Rhythm and S1/S2
GI: Soft, Nontender, Nondistended and Normal Bowel Sounds
Musculoskeletal: No Clubbing, No Cyanosis, No Edema and Other (Tenderness to palpation of right shoulder)
Skin: Warm and Dry
Neuro: Awake, Alert and Oriented
Psych: Anxious
Data Reviewed
-
Total Time Spent with Patient (in minutes): 25
Diagnostic Radiology: Report Reviewed by me
CT Scan: Report Reviewed by me
Labs: Labs Reviewed by me
--- NOTE | 2024-10-15 17:51 | PTCARENOTE ---
assumed care of pt s/p right shoulder surgery, transfer from 4W. AOx3 LCTA on RA b/L regular diet, ordering dinner. sling with immobilizer to right RUE. Neurovascular checks WNL. No edema. +PP CB in reach instructed to use.
[2024-10-15] MEDS: COLACE 100 MG PO (20:59)
[2024-10-15] MEDS: REMOVE LIDOCAINE PATCH REMOVE (20:59)
[2024-10-15] MEDS: LIPITOR 80 MG PO (21:00)
[2024-10-15] MEDS: ASPIR LOW (ENTERIC COATED) 81 MG PO (21:00)
[2024-10-16] VITALS (7 sets, daily range): BP systolic 119–154; BP diastolic 62–80; PULSE 78–82; O2SAT 96–98
[2024-10-16 06:47] LABS: Blood Urea Nitrogen 13 mg/dl (7-17); Calcium 9.1 mg/dl (8.4-10.2); Carbon Dioxide 30 mmol/L (22-30); Chloride 104 mmol/L (98-107); Estimated Creatinine Clearance 92 ml/min; Glucose 118 mg/dl (70-99); Potassium 4.5 mmol/L (3.5-5.1); Sodium 138 mmol/L (135-145); eGFR > 60.00
[2024-10-16 07:11] LABS: Hematocrit 31.0 % (37.0-47.0); Hemoglobin 10.4 g/dL (12.0-16.0); Mean Corp Hgb Conc. 33.5 g/dL (33.0-37.0); Mean Corpuscular Volume 96.6 fL (81.0-99.0); Nucleated Red Blood Cells % 0 %; Platelet Count 308 10^3/uL (130-400); Red Cell Dist. Width 12.9 % (11.5-14.5)
--- NOTE | 2024-10-16 07:27 | W.PN.ORTHO ---
Today's Communication / Plan
-
73 yo F POD1 right reverse TSA explant with antibiotic spacer placement performed under the direction of Dr. Mcdowell
--Continue sling with pillow for immobilization. Strict NWB to RUE.
--Lovenox for DVT ppx per primary.
--Gram stain and cultures from OR pending. Continue to monitor.
--Hgb pending this AM. Continue to monitor.
--Per ID, will need at least 6 weeks of IV abx. Patient will need PICC line placed.
--Maintain surgical dressing until 2 weeks post-op.
--Case management consult for dc planning.
--Orthopedics will continue to follow along.
Assessment
.
Distal Motor Intact: Yes
Dressing:
Clean, dry and intact.
Plan
.
Surgery / Date: Right reverse TSA explant with abx spacer
DVT Prophylaxis: Lovenox
Activity:
Out of bed.
PT/OT
Subjective
.
.:
Ms. Clifton is POD1 following her right reverse TSA explant and abx spacer placement performed under the direction of Dr. Mcdowell. She is resting comfortably in bed this morning, but does appear to be in some pain. She reports her nerve block as
nearly worn off completely, and she has experienced more pain over the last hour or so.
Vital Signs and Labs
.
Vital Signs and Labs:
Lab Results
10/16/24 05:32
10/16/24 05:32
Temp Pulse Resp BP Pulse Ox
97.9 F 70 16 120/65 97
10/16/24 03:00 10/16/24 03:00 10/16/24 03:00 10/16/24 03:00 10/16/24 03:00
PT 13.8 Sec (11.4-14.6) 10/15/24 06:12
INR 1.03 10/15/24 06:12
Physical Exam
-
Directed exam of the right upper extremity reveals surgical dressing clean, dry and intact. Mild tenderness about the shoulder. Patient able to wiggle fingers, flex and extend wrist and extend thumb. Sensation intact to light touch though patient
endorses a small amount of residual numbness in her thumb. Capillary refill <2 seconds. VSS.
[2024-10-16] MEDS: COZAAR 100 MG PO (08:10)
[2024-10-16] MEDS: ZETIA 10 MG PO (08:10)
[2024-10-16] MEDS: PROZAC 60 MG PO (08:11)
[2024-10-16] MEDS: LIDOCAINE 4% PATCH 1 PATCH TOPICAL (08:11)
[2024-10-16] MEDS: SENOKOT 8.6 MG PO (08:11)
[2024-10-16] MEDS: PROTONIX 40 MG PO (08:11)
[2024-10-16] MEDS: DILAUDID 0.5 MG IV ×3 (08:15→21:08)
[2024-10-16] MEDS: MIRALAX 17 GRAMS PO (08:44)
[2024-10-16] MEDS: ROXICODONE 10 MG PO ×2 (10:14→17:30)
[2024-10-16] MEDS: STERILE WATER FOR INJECTION 20 ML IV (11:09)
[2024-10-16] MEDS: ROCEPHIN 2000 MG IV (11:09)
--- NOTE | 2024-10-16 11:36 | W.PN.ID1 ---
Date of Service
Date of Service: October 16, 2024
Today's Communication
- Continue ceftriaxone 2g IV q24h x 6 weeks through 11/26/24.
- Picc ordered
Assessment / Plan
# Late Right shoulder PJI with Klebsiella
# Klebsiella bacteremia from PJI source
# Asymptomatic polymicrobial bacteruria
# Subacute Right acromion displaced fracture (recent fall)
#hx R reverse TSA 2023
- Synovial fluid 24636 wbc, 96% polys
Synovial fluid cx Klebsiella
- blood cx 1 of 2 sets: Klebsiella
- 10/15/24 s/p washout, hardware removal, spacer placement
OR cx pending
- Continue ceftriaxone 2g IV q24h x 6 weeks through 11/26/24.
- Picc ordered
- Infusion sheet submitted to [facility] on 10/15.
# Conditions prior to admission
Hypertension
Dyslipidemia
PUD
Chronic back pain
Shoulder fracture status post right reverse total shoulder arthroplasty 05/24/2023
Bilateral total knee replacement
Lumbar laminectomy
Gastric bypass
Chief Complaint
-: Other (Shoulder pain)
Subjective / Review of Systems
Has post-op pain.
Vital Signs / Physical Exam
Vital Signs
Vital Signs
Temp Pulse Resp BP Pulse Ox
98.3 F 75 16 133/72 98
10/16/24 08:07 10/16/24 08:07 10/16/24 08:07 10/16/24 08:07 10/16/24 08:07
Physical Exam
Constitutional: No Acute Distress
Pulmonary: Clear
Gastrointestinal: Soft, Non Tender, Non Distended and Normal Bowel Sounds
Wound: Other (R shoulder dressing dry)
Neurological: AO x 3
Objective Data
Lab Data
Lab Results
10/16/24 05:32
10/16/24 05:32
ESR 72 mm/hour (0-20) H 10/12/24 08:12
PT 13.8 Sec (11.4-14.6) 10/15/24 06:12
INR 1.03 10/15/24 06:12
APTT 34.6 Sec (23.4-35.0) 10/15/24 06:12
Estimated Creat Clear 92 ml/min 10/16/24 05:32
Total Bilirubin 1.2 mg/dl (0.2-1.3) 10/12/24 08:12
AST 42 U/L (14-36) H 10/12/24 08:12
ALT 34 U/L (0-35) 10/12/24 08:12
Alkaline Phosphatase 116 U/L (38-126) 10/12/24 08:12
C-Reactive Protein 181.60 mg/L (0.0-10.00) H 10/12/24 08:12
Most recent labs reviewed.
Micro Results:
10/15/24 15:25 Tissue Culture - Preliminary
Shoulder - Right Gram Stain - Preliminary
10/15/24 14:24 Wound Culture - Pending
Shoulder - Right Gram Stain - Preliminary
10/13/24 12:48 Blood Culture - Preliminary
Blood/Venous Klebsiella pneumoniae
Gram Stain - Preliminary
10/13/24 15:29 Urine Culture - Final
Urine Klebsiella pneumoniae
Escherichia coli
10/15/24 15:25 Tissue Culture - Pending
Shoulder - Right Gram Stain - Preliminary
10/15/24 06:42 Blood Culture - Preliminary
Blood/Venous No Growth in 24 hours- Final report to follow
10/15/24 06:12 Blood Culture - Preliminary
Blood/Venous No Growth in 24 hours- Final report to follow
10/15/24 14:24 Anaerobic Culture - Pending
Shoulder - Right
10/13/24 12:24 Blood Culture - Preliminary
Blood/Venous No Growth in 48 hours- Final report to follow
10/12/24 12:29 Body Fluid Culture - Final
Joint Fluid Klebsiella pneumoniae
Gram Stain - Final
10/12/24 CT RUE:
SUBACUTE DISPLACED FRACTURE of the posterior cortex of the ACROMION (2.9 cm fracture fragment displaced posteriorly and inferiorly 1.1 cm)
2. Multiple corticated ossific fragments medial to the proximal humerus (largest 4.7 cm).
3. Moderate subacromial/subdeltoid bursitis.
4. Reverse right total shoulder arthroplasty in place.
--- NOTE | 2024-10-16 12:35 | W.PN.HOSP.TC ---
Today's Communication/Plan
-
Postoperative day #1 after right shoulder incision and drainage and antibiotic spacer placement.
Patient reports pain is not well-controlled. Scheduled Tylenol 1 g every 8 hours. Added OxyContin 10 mg p.o. daily. The importance of taking stool softeners and begin a bowel regimen was reiterated.
Patient states that she prefers to go home with home care. is interested in learning to administer IV antibiotics. She also is reassured that her daughter is a nurse and can help.
Assessment / Plan
Assessment / Plan
73-year-old female underwent right shoulder arthroplasty May 2023. She sustained a fall 2 to 3 weeks ago landing on the right shoulder and started having bruising and pain. Pain kept increasing. In the ER she underwent arthrocentesis
Incision and drainage of right shoulder 10/15/2024.
Arthrocentesis culture grew Klebsiella, like the blood culture. Urine culture grew E. coli and 1 other unidentified gram-negative ying. Switch from cefepime to ceftriaxone, per ID.
# Pain right shoulder
Possible septic arthritis with synovial fluid with more than 52,000 WBCs fluid Gram stain gram-negative rods cultures pending
Subacute right acromion displaced fracture-traumatic
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
� Incision and drainage of right shoulder 10/15/2024.
Postop pain not well-controlled. Receiving as needed hydromorphone every 4 hours.
� OxyContin 10 mg daily for during the day. Scheduled Tylenol 1 g every 8 hours
The importance of taking stool softeners and begin a bowel regimen was reiterated.
# Klebsiella bacteremia
Source unclear
1) arthrocentesis culture positive for Klebsiella
� Pending I&D cultures
2) urine culture positive for E. coli and an unidentified gram-negative bacilli
3) 1 blood culture positive for Klebsiella, while other has no growth in 24 hours
�Repeat blood cultures in the morning 10/15/2024
Infectious disease following
�Started on cefepime. De-escalated to ceftriaxone after sensitivities resulted
# Hyperlipidemia-continue atorvastatin, Zetia
# Hypertension-continue losartan
# Depression-continue fluoxetine
# Peptic ulcer disease-continue PPI
# Chronic back pain. History of lumbar laminectomy
# History of gastric bypass surgery
# History of migraines
# Ex-smoker
# DVT prophylaxis-Lovenox
# Full code
Dispo: Home with home care is patient's preference. is interested in learning to administer the IV antibiotics for 6 weeks.
Part of this note was created using voice recognition system. Occasional wrong word or��sound alike� substitutions may have inadvertently occurred due to the inherent limitations of voice recognition software. If noted kindly bring it to my
attention for correction.
Anticipated Discharge: 24 - 48 hours
Subjective/Interval History
-
Date of Service: October 16, 2024
No acute events overnight. Patient reports pain is not well-controlled. Scheduled Tylenol 1 g every 8 hours. Added OxyContin 10 mg p.o. daily. The importance of taking stool softeners and begin a bowel regimen was reiterated.
Patient states that she prefers to go home with home care. is interested in learning to administer IV antibiotics. She also is reassured that her daughter is a nurse and can help.
Objective Data
-
Labs:
Laboratory Results
10/16/24
05:32
WBC 8.3
Hgb 10.4 L
Hct 31.0 L
Plt Count 308
Sodium 138
Potassium 4.5
Chloride 104
Carbon Dioxide 30
BUN 13
Creatinine 0.5 L
Glucose 118 H
Calcium 9.1
Vital Signs:
Vital Signs
Temp Pulse Resp BP Pulse Ox
98.3 F 75 16 133/72 98
10/16/24 08:07 10/16/24 08:07 10/16/24 08:07 10/16/24 08:07 10/16/24 08:07
I&O
10/15/24 10/16/24 10/17/24
06:59 06:59 06:59
Intake Total 900 / 900 125 / 125
Output Total 700 / 700
Balance 900 / 900 -575 / -575
Review of Systems
-
History Source: Patient
Constitutional: Reports No Symptoms
EENT: Reports No Symptoms Reported
Respiratory: Reports No Symptoms
Cardiac: Reports No Symptoms
Abdomen/GI: Reports No Symptoms
Genitourinary: Reports No Symptoms
Musculoskeletal: Reports No Symptoms
Skin: Reports No Symptoms
Neuro: Reports No Symptoms
Physical Exam
-
General: Well Developed, Well Nourished and Pain (Right shoulder postop pain cyclical)
HEENT: Normocephalic, Atraumatic, Moist Mucous Membranes, Anicteric, Nose Appears Normal and Ears Appear Normal
Cardiac: Regular Rhythm and S1/S2
GI: Soft, Nontender, Nondistended and Normal Bowel Sounds
Musculoskeletal: No Clubbing and No Cyanosis
Skin: Warm and Dry
Neuro: Awake, Alert, Oriented, No Motor Deficits (Able to wiggle right fingers), Nonfocal/Grossly Intact, Central Nerve's Intact and No Sensory Deficits (Patient endorses continued thumb tingling since surgery)
Data Reviewed
-
Total Time Spent with Patient (in minutes): 25
Diagnostic Radiology: Report Reviewed by me
CT Scan: Report Reviewed by me
Labs: Labs Reviewed by me
[2024-10-16] MEDS: TYLENOL 1000 MG PO ×2 (12:55→21:07)
--- NOTE | 2024-10-16 13:32 | W.PN.UPDATE ---
Update Note
Progress Note Update
Seen earlier today with residents. Agree with plan put forth by resident. See changes in my documentation
Late documentation
73-year-old female underwent right shoulder arthroplasty May 2023. She sustained a fall 2 to 3 weeks ago landing on the right shoulder and started having bruising and pain. Pain kept increasing. In the ER she underwent arthrocentesis
On examination tenderness right shoulder, increased warmth
Cardiovascular system S1-S2 appreciated
Chest clear to auscultation
Abdomen soft and nontender
Decreased range of motion right shoulder
# Pain right shoulder
Possible septic arthritis with synovial fluid with more than 52,000 WBCs fluid ,Klebsiella in Cx
Subacute right acromion displaced fracture-traumatic
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
right reverse TSA explant with antibiotic spacer placement performed under the direction of Dr. Mcdowell
Pain control-lidocaine patch and oxycodone, OxyContin 10 mg added today along with bowel regimen
Antibiotics for 6 weeks through 09/26/2024
Strict nonweightbearing right upper extremity discussed with the patient
# Klebsiella bacteremia
Source unclear
Started on cefepime, changed to ceftriaxone
Infectious disease following
Repeat blood cultures negative
# Hyperlipidemia-continue atorvastatin, Zetia
# Hypertension-continue losartan
# Depression-continue fluoxetine
# Peptic ulcer disease-continue PPI
# Chronic back pain history of lumbar laminectomy
# History of gastric bypass surgery
# History of migraines
# Obesity per BMI
# Ex-smoker
# DVT prophylaxis-Lovenox tomorrow
# Full code
D/W Ortho
Discussed with at bedside. All questions answered
Patient is ambulating well and the plan will be for discharge home with infusion possibly tomorrow
Part of this note was created using voice recognition system. Occasional wrong word or��sound alike� substitutions may have inadvertently occurred due to the inherent limitations of voice recognition software. If noted kindly bring it to my
attention for correction.
[2024-10-16] MEDS: OXYCONTIN (CONTROLLED RELEASE) 10 MG PO (14:40)
--- NOTE | 2024-10-16 15:12 | CM ---
Reviewed the chart notes and spoke with the patient at the bedside. Per [facility]ia[facility], cost of medication and supplies will be $163/week. Discussed VN services. [facility] selected due to PICC line dressing. Referral sent and [facility] accepted. CM continues to be available to patient/family and is monitoring medical plan for needs at discharge.
Plan: Discharge to home with [facility] and [facility] for IV abx and supplies. PICC to be placed today.
[2024-10-16] MEDS: LOVENOX 40 MG SC (17:21)
[2024-10-16] MEDS: REMOVE LIDOCAINE PATCH 1 PATCH REMOVE (21:07)
[2024-10-16] MEDS: COLACE 100 MG PO (21:08)
[2024-10-16] MEDS: LIPITOR 80 MG PO (21:08)
[2024-10-16] MEDS: SENOKOT 17.2 MG PO (21:08)
[2024-10-16] MEDS: ASPIR LOW (ENTERIC COATED) 81 MG PO (21:08)
[2024-10-17 03:45] VITALS: BP 157/77
[2024-10-17] MEDS: TYLENOL 1000 MG PO ×2 (03:45→11:58)
[2024-10-17] MEDS: DILAUDID 0.5 MG IV (03:45)
[2024-10-17 06:50] LABS: Hematocrit 27.7 % (37.0-47.0); Hemoglobin 9.5 g/dL (12.0-16.0); Mean Corp Hgb Conc. 34.3 g/dL (33.0-37.0); Mean Corpuscular Volume 95.5 fL (81.0-99.0); Nucleated Red Blood Cells % 0 %; Platelet Count 311 10^3/uL (130-400); Red Cell Dist. Width 13.0 % (11.5-14.5)
--- NOTE | 2024-10-17 07:17 | W.PN.ORTHO ---
Today's Communication / Plan
-
73 yo F POD2 right reverse TSA explant with antibiotic spacer placement performed under the direction of Dr. Mcdowell
--Continue sling with pillow for immobilization. Strict NWB to RUE.
--Lovenox for DVT ppx per primary.
--Gram stain and cultures from OR pending. Continue to monitor.
--Hgb pending this AM. Continue to monitor.
--Per ID, will need at least 6 weeks of IV abx (ceftriaxone). Patient has PICC line placed.
--Maintain surgical dressing until 2 weeks post-op then skin clips removed.
--Case management consult-home w VNA.
--Orthopedics will continue to follow along.
Assessment
.
Distal Motor Intact: Yes
Dressing:
Clean, dry and intact (scant blood strikethrough).
Plan
.
Surgery / Date: Right reverse TSA explant with abx spacer
DVT Prophylaxis: Lovenox
Activity:
Out of bed.
PT/OT
Discharge Plan: Home w/ VN
Subjective
.
.:
Patient resting comfortably.
Vital Signs and Labs
.
Vital Signs and Labs:
Lab Results
10/17/24 06:17
Temp Pulse Resp BP Pulse Ox
98.3 F 78 18 157/77 100
10/16/24 23:10 10/17/24 03:45 10/16/24 23:10 10/17/24 03:45 10/16/24 23:10
PT 13.8 Sec (11.4-14.6) 10/15/24 06:12
INR 1.03 10/15/24 06:12
UC Klebsiella pneumonia and E. coli
DC Klebsiella pneumonia told
[2024-10-17 07:25] VITALS: BP 155/79
--- NOTE | 2024-10-17 07:41 | W.PN.HOSP.TC ---
Addendum entered and electronically signed by Natalie Gil MD 10/17/24 13:15:
73-year-old female with right shoulder infection status post surgery
Agree with the assessment and plan formulated by the resident.
Patient had the immobilizer on pain was okay with OxyContin and also extra oxycodone for breakthrough pain
She has prescription for Percocets as well as oxycodone at home
I anticipate that the pain will get better in the next few days as she is still recently. Therefore we will provide OxyContin 10 mg tablets. Patient cannot take any NSAIDs given her gastric bypass surgery.
is arriving to learn home infusion and also home infusion company set up
PICC line placed
Strict nonweightbearing of upper extremities discussed
She is also aware that narcotics can cause constipation
She needs to continue with Colace Senokot and MiraLAX
1 dose of milk of mag citrate ordered for bowel movements
Discussed with nursing
Total discharge coordination time more than 30 minutes
Original Note:
Today's Communication/Plan
-
Pain controlled on OxyContin 10 mg daily, scheduled Tylenol 1 g every 8 hours, as needed oxycodone, as needed Dilaudid
PICC line and chest x-ray performed yesterday.
Assessment / Plan
Assessment / Plan
73-year-old female underwent right shoulder arthroplasty May 2023. She sustained a fall 2 to 3 weeks ago landing on the right shoulder and started having bruising and pain. Pain kept increasing. In the ER she underwent arthrocentesis.
Arthrocentesis culture grew Klebsiella, like the blood culture. Urine culture grew E. coli and 1 other unidentified gram-negative ying. Started cefepime and switched to ceftriaxone, per ID.
Right reverse total shoulder arthroplasty explant with antibiotic spacer placement 10/15/2024. Pain controlled on OxyContin 10 mg daily, scheduled Tylenol 1 g every 8 hours, as needed oxycodone, as needed Dilaudid
# Pain right shoulder
Possible septic arthritis with synovial fluid with more than 52,000 WBCs fluid Gram stain gram-negative rods cultures pending
Subacute right acromion displaced fracture-traumatic
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
� Incision and drainage of right shoulder 10/15/2024.
Postop pain not well-controlled. Receiving as needed hydromorphone every 4 hours.
� OxyContin 10 mg daily for during the day. Scheduled Tylenol 1 g every 8 hours
The importance of taking stool softeners and begin a bowel regimen was reiterated.
Orthopedics recommendations
� Maintain surgical dressing until 2 weeks postop
# Klebsiella bacteremia
Source unclear
1) arthrocentesis culture positive for Klebsiella
� Pending I&D cultures
2) urine culture positive for E. coli and an unidentified gram-negative bacilli
3) 1 blood culture positive for Klebsiella, while other has no growth in 24 hours
� Repeat blood cultures in the morning 10/15/2024
Infectious disease following
� Started on cefepime. De-escalated to ceftriaxone after sensitivities resulted
� IV ceftriaxone 2 g every 24 hours 6 weeks through 11/26/2024
� PICC line placed 10/17/2024. Chest x-ray confirmed appropriate position
# Hyperlipidemia-continue atorvastatin, Zetia
# Hypertension-continue losartan
# Depression-continue fluoxetine
# Peptic ulcer disease-continue PPI
Dispo: Home with visiting nurse is patient's preference. is interested in learning to administer the IV antibiotics for 6 weeks.
Part of this note was created using voice recognition system. Occasional wrong word or��sound alike� substitutions may have inadvertently occurred due to the inherent limitations of voice recognition software. If noted kindly bring it to my
attention for correction.
Anticipated Discharge: Today
Subjective/Interval History
-
Date of Service: October 17, 2024
No acute events overnight. Patient states her pain patient patient states her pain today is the best it has been since admission. We added OxyContin yesterday, which she has received yesterday and today. She has also been receiving her scheduled
Tylenol
PICC line placed yesterday.
Objective Data
-
Labs:
Laboratory Results
10/17/24 10/17/24
06:16 06:17
WBC 7.1
Hgb 9.5 L
Hct 27.7 L
Plt Count 311
Sodium Pending
Potassium Pending
Chloride Pending
Carbon Dioxide Pending
BUN Pending
Creatinine Pending
Glucose Pending
Calcium Pending
Vital Signs:
Vital Signs
Temp Pulse Resp BP Pulse Ox
98.3 F 78 18 157/77 100
10/16/24 23:10 10/17/24 03:45 10/16/24 23:10 10/17/24 03:45 10/16/24 23:10
I&O
10/16/24 10/17/24 10/18/24
06:59 06:59 06:59
Intake Total 125 / 125
Output Total 700 / 700
Balance -575 / -575
Review of Systems
-
History Source: Patient
Constitutional: Reports No Symptoms
EENT: Reports No Symptoms Reported
Respiratory: Reports No Symptoms
Cardiac: Reports No Symptoms
Abdomen/GI: Reports Constipated (Had a small bowel movement postop); Denies Abdominal Pain or Nausea
Genitourinary: Reports No Symptoms; Denies Difficulty Voiding
Musculoskeletal: Reports Joint Pain (Right shoulder pain well-controlled on adjusted pain regimen)
Skin: Reports No Symptoms
Neuro: Reports No Symptoms
Physical Exam
-
General: Well Developed, Well Nourished, No Apparent Distress and Comfortable
HEENT: Normocephalic, Atraumatic, Moist Mucous Membranes, Nose Appears Normal and Ears Appear Normal
Respiratory: Clear to Auscultation
Cardiac: Regular Rhythm and S1/S2
GI: Soft, Nontender, Nondistended and Normal Bowel Sounds
Musculoskeletal: No Clubbing, No Cyanosis and Other (Right arm in sling and support)
Skin: Warm and Dry
Neuro: Awake, Alert, Oriented, No Motor Deficits (Right hand and fingers have good mobility) and No Sensory Deficits (Right thumb numbness and tingling have disappeared)
Psych: Calm
Data Reviewed
-
Total Time Spent with Patient (in minutes): 25
Diagnostic Radiology: Report Reviewed by me
Labs: Labs Reviewed by me
[2024-10-17 07:45] LABS: Blood Urea Nitrogen 16 mg/dl (7-17); Calcium 8.8 mg/dl (8.4-10.2); Carbon Dioxide 26 mmol/L (22-30); Chloride 106 mmol/L (98-107); Estimated Creatinine Clearance 92 ml/min; Glucose 115 mg/dl (70-99); Potassium 4.7 mmol/L (3.5-5.1); Sodium 136 mmol/L (135-145); eGFR > 60.00
[2024-10-17] MEDS: ROXICODONE 10 MG PO ×2 (07:47→11:53)
[2024-10-17] MEDS: PROTONIX 40 MG PO (08:56)
[2024-10-17] MEDS: OXYCONTIN (CONTROLLED RELEASE) 10 MG PO (08:56)
[2024-10-17] MEDS: PROZAC 60 MG PO (08:56)
[2024-10-17] MEDS: MIRALAX 17 GRAMS PO (08:56)
[2024-10-17] MEDS: ZETIA 10 MG PO (08:56)
[2024-10-17] MEDS: COZAAR 100 MG PO (08:57)
[2024-10-17] MEDS: LIDOCAINE 4% PATCH 1 PATCH TOPICAL (08:57)
[2024-10-17] MEDS: SENOKOT 17.2 MG PO (08:57)
--- NOTE | 2024-10-17 10:14 | CM ---
Addendum entered by Peg Summers RN 10/17/24 13:36:
Per [facility], will deliver medication tonight. Per Michela with [facility], they will do teaching in the home tomorrow. Patient, RN, attending updated. Patient to discharge to home today.
Original Note:
Reviewed the chart notes and spoke with the patient at the bedside. IMM signed. PICC and CXR sent to [facility] and [facility]. [facility] and [facility] notified of patient ready for discharge. CM continues to be available to patient/family and is
monitoring medical plan for needs at discharge.
Plan: Discharge to home with [facility] and [facility] for IV abx.
Maggie BEARD
--- NOTE | 2024-10-17 10:29 | W.DCSUMMARY ---
Discharge Summary
Discharge Data
Date of Admission: 10/12/24
Date of Discharge: 10/17/24
Total time spent discharging patient (in min): 45
-
Pending Results: Yes
Additional Pending Results:
Cultures: I&D right shoulder, blood
Hospital Course
73-year-old female with a PMH of right proximal humerus fracture May 2023 (s/p right shoulder arthroplasty), HLD, HTN, PUD, depression, presented with increasing pain in her right shoulder. She sustained a fall 2 to 3 weeks ago landing on the
right shoulder and started having bruising and pain.
In the ER she underwent arthrocentesis. Arthrocentesis culture grew Klebsiella, like the blood culture. Urine culture grew E. coli and 1 other unidentified gram-negative ying. Started cefepime and switched to ceftriaxone, per ID.
Right reverse total shoulder arthroplasty explant with antibiotic spacer placement 10/15/2024. Pain controlled on OxyContin 10 mg daily, scheduled Tylenol 1 g every 8 hours, as needed oxycodone, as needed Dilaudid.
# Pain right shoulder
Possible septic arthritis with synovial fluid with more than 52,000 WBCs fluid Gram stain gram-negative rods cultures pending
Subacute right acromion displaced fracture-traumatic
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
� Incision and drainage of right shoulder 10/15/2024.
Postop pain not well-controlled. Receiving as needed hydromorphone every 4 hours.
� OxyContin 10 mg daily for during the day. Scheduled Tylenol 1 g every 8 hours
The importance of taking stool softeners and begin a bowel regimen was reiterated.
Orthopedics recommendations
� Maintain surgical dressing until 2 weeks postop
# Klebsiella bacteremia
Source unclear
1) arthrocentesis culture positive for Klebsiella
� Pending I&D cultures
2) urine culture positive for E. coli and an unidentified gram-negative bacilli
3) 1 blood culture positive for Klebsiella, while other has no growth in 24 hours
� Repeat blood cultures in the morning 10/15/2024
Infectious disease following
� Started on cefepime. De-escalated to ceftriaxone after sensitivities resulted
� IV ceftriaxone 2 g every 24 hours 6 weeks through 11/26/2024
� PICC line placed 10/17/2024. Chest x-ray confirmed appropriate position
# Hyperlipidemia-continue atorvastatin, Zetia
# Hypertension-continue losartan
# Depression-continue fluoxetine
# Peptic ulcer disease-continue PPI
Dispo: Home with visiting nurse is patient's preference. is interested in learning to administer the IV antibiotics for 6 weeks.
Discharge Plan
-
Patient Disposition: Home with Home Care
Discharge Diagnosis/Procedures: Primary:
Prosthetic joint infection (Klebsiella)
Pain due to prosthetic joint infection and I&D
Klebsiella bacteremia
E. coli UTI
Secondary:
Hyperlipidemia, hypertension, depression, peptic ulcer disease, chronic back pain
Condition: Good
Diet: Low Cholesterol and Low Sodium
Activity: Other activity
Additional Activity: No weightbearing of right upper extremity
Referrals:
Huy Mcdowell MD [Active, Orthopedics] - in one to two weeks
Referral Note: Please follow up for further management of your total arthroplasty explant
Violet Bell CRNP [Family Provider, General]
Nu Mauro MD [Active, Infectious Diseases] - in three to four weeks
Additional Discharge Medication Instructions: Please have family train in administering IV antibiotics and have them administer IV ceftriaxone 2 g every 24 hours for 6 weeks through 11/26/2024. Have them administer the IV ceftriaxone through your
PICC line.
Please follow-up with your orthopedic surgeon regarding further management of your right shoulder explant and antibiotic spacer.
Please follow-up with infectious disease regarding your bacterial cultures and antibiotic management.
Prescriptions:
New
oxycodone [OxyContin] 10 mg Tablet,Oral Only,Ext.Rel.12 Hr
10 mg PO DAILY Qty: 14 0RF
oxycodone 10 mg Tablet
10 mg PO Q4HPRN PRN (Reason: moderate pain) Qty: 10 0RF
Rx Instructions:
Break-through pain
ceftriaxone 2 gram Recon Soln
2,000 mg IV Q24H Qty: 40 0RF
acetaminophen [Tylenol Extra Strength] 500 mg Tablet
1,000 mg PO Q8H Qty: 30 0RF
Rx Instructions:
Pain. Do not exceed 4g (4000mg) per day of tylenol.
Continued
multivitamin Tablet
1 tab PO DAILY Qty: 0 0RF
atorvastatin 80 mg Tablet
80 mg PO HS Qty: 0 0RF
chromium picolinate 200 mcg Tablet
200 mcg PO DAILY
magnesium 200 mg Tablet
400 mg PO HS
cholecalciferol (vitamin D3) 25 mcg (1,000 unit) Tablet
25 mcg PO DAILY
losartan 100 mg Tablet
100 mg PO DAILY Qty: 0 0RF
garlic 300 mg Capsule
300 mg PO DAILY Qty: 0
sennosides [senna] 8.6 mg Tablet
8.6 mg PO BID
aspirin 81 mg Tablet,Delayed Release (Dr/Ec)
81 mg PO HS
docusate sodium [Colace] 100 mg Capsule
100 mg PO HS
coQ10 (ubiquinol) 200 mg Capsule
200 mg PO BID
ashwagandha root extract 300 mg Capsule
300 mg PO DAILY
Sandstone 3-Turmeric
2 tab PO DAILY
fluoxetine 20 mg capsule
60 mg PO DAILY
Dha W/ Vitamin D
1 tab PO DAILY
ezetimibe 10 mg tablet
10 mg PO DAILY
pantoprazole 40 mg tablet,delayed release (DR/EC)
40 mg PO DAILY
Sandstone 3 Fish Oil 684-1,200 mg Capsule,Delayed Release(Dr/Ec)
2 cap PO HS
cordyceps 500 mg Capsule
500 mg PO DAILY
Discontinued
acetaminophen [Tylenol Extra Strength] 500 mg Tablet
1,500 mg PO DAILYPRN PRN (Reason: mild pain)
oxycodone-acetaminophen 7.5-325 mg tablet
1 tab PO Q6HPRN PRN (Reason: mod pain)
Discharge Date and Time
Print Language: SAO TOMEAN
[2024-10-17 11:21] LABS: Iron 32 ug/dl (37-170)
[2024-10-17 11:31] LABS: Total Iron Binding Capacity 204 ug/dl (265-497)
--- NOTE | 2024-10-17 11:45 | W.PN.ID1 ---
Date of Service
Date of Service: October 17, 2024
Today's Communication
DC home today.
Assessment / Plan
# Late Right shoulder PJI with Klebsiella
# Klebsiella bacteremia from PJI source
# Asymptomatic polymicrobial bacteruria
# Subacute Right acromion displaced fracture (recent fall)
#hx R reverse TSA 2023
- Synovial fluid 15021 wbc, 96% polys
Synovial fluid cx Klebsiella
- blood cx 1 of 2 sets: Klebsiella
- 10/15/24 s/p washout, hardware removal, spacer placement
OR cx GNR
- Continue ceftriaxone 2g IV q24h x 6 weeks through 11/26/24.
- Follow weekly CBCP, CMP, ESR, CRP
- Infusion sheet submitted to disability case manager on 10/15.
-DC home today.
- Follow-up with me in 4 weeks.
# Conditions prior to admission
Hypertension
Dyslipidemia
PUD
Chronic back pain
Shoulder fracture status post right reverse total shoulder arthroplasty 05/24/2023
Bilateral total knee replacement
Lumbar laminectomy
Gastric bypass
Chief Complaint
-: Other (Shoulder pain)
Subjective / Review of Systems
Going home today.
Vital Signs / Physical Exam
Vital Signs
Vital Signs
Temp Pulse Resp BP Pulse Ox
98.0 F 71 18 155/79 98
10/17/24 07:25 10/17/24 07:25 10/17/24 07:25 10/17/24 07:25 10/17/24 07:25
Physical Exam
Constitutional: No Acute Distress and Comfortable
Cardiovascular: Regular Rate and S1/S2
Pulmonary: Clear
Gastrointestinal: Soft, Non Tender and Non Distended
Musculoskeletal: Other (Right sling in place)
Neurological: AO x 3
Lines: PICC (LUE)
Objective Data
Lab Data
Lab Results
10/17/24 06:17
10/17/24 06:16
ESR 72 mm/hour (0-20) H 10/12/24 08:12
PT 13.8 Sec (11.4-14.6) 10/15/24 06:12
INR 1.03 10/15/24 06:12
APTT 34.6 Sec (23.4-35.0) 10/15/24 06:12
Estimated Creat Clear 92 ml/min 10/17/24 06:16
Total Bilirubin 1.2 mg/dl (0.2-1.3) 10/12/24 08:12
AST 42 U/L (14-36) H 10/12/24 08:12
ALT 34 U/L (0-35) 10/12/24 08:12
Alkaline Phosphatase 116 U/L (38-126) 10/12/24 08:12
C-Reactive Protein 181.60 mg/L (0.0-10.00) H 10/12/24 08:12
Most recent labs reviewed.
Micro Results:
10/15/24 14:24 Wound Culture - Preliminary
Shoulder - Right Gram negative bacilli
Gram Stain - Preliminary
10/15/24 15:25 Tissue Culture - Preliminary
Shoulder - Right Gram negative bacilli
Gram Stain - Preliminary
10/15/24 15:25 Tissue Culture - Preliminary
Shoulder - Right Gram Stain - Preliminary
10/15/24 06:42 Blood Culture - Preliminary
Blood/Venous No Growth in 48 hours- Final report to follow
10/15/24 06:12 Blood Culture - Preliminary
Blood/Venous No Growth in 48 hours- Final report to follow
10/15/24 14:24 Anaerobic Culture - Preliminary
Shoulder - Right Culture pending. Anaerobic cultures are examined after 3
days incubation. Additional information to follow.
10/13/24 12:24 Blood Culture - Preliminary
Blood/Venous No Growth in 72 hours- Final report to follow
10/13/24 12:48 Blood Culture - Preliminary
Blood/Venous Klebsiella pneumoniae
Gram Stain - Preliminary
10/13/24 15:29 Urine Culture - Final
Urine Klebsiella pneumoniae
Escherichia coli
10/12/24 12:29 Body Fluid Culture - Final
Joint Fluid Klebsiella pneumoniae
Gram Stain - Final
10/12/24 CT RUE:
SUBACUTE DISPLACED FRACTURE of the posterior cortex of the ACROMION (2.9 cm fracture fragment displaced posteriorly and inferiorly 1.1 cm)
2. Multiple corticated ossific fragments medial to the proximal humerus (largest 4.7 cm).
3. Moderate subacromial/subdeltoid bursitis.
4. Reverse right total shoulder arthroplasty in place.
[2024-10-17] MEDS: CITROMA 300 ML PO (11:52)
[2024-10-17] MEDS: STERILE WATER FOR INJECTION 20 ML IV (11:59)
[2024-10-17] MEDS: ROCEPHIN 2000 MG IV (11:59)
[2024-10-17 12:21] LABS: Ferritin 262.0 ng/ml (11.1-264.0)
[2024-10-17 12:35] LABS: Vitamin B12 > 1000 pg/ml (239-931)
[2024-10-17] MEDS: FERRLECIT 110 MG IV (14:33)
[2024-10-17 15:20] VITALS: BP 155/83
== END 2024-10-17 15:58 | disposition home health service (06) | DRG 483 ==
LOC: 2 SOUTH 16:04
PROVIDERS: Orthopaedic Surgery Hand Surgery; Physician Assistant; Radiology Diagnostic Radiology; ADMITTING PHYSICIAN Hospitalist; ATTENDING PHYSICIAN Hospitalist; CONSULT PHYSICIAN Internal Medicine Infectious Disease; EMERGENCY PHYSICIAN Emergency Medicine; FAMILY PHYSICIAN Nurse Practitioner Adult Health; OTHER PHYSICIAN Physician Assistant Surgical
PROC: 0RPJ0J6 Removal of Synthetic Substitute from Right Shoulder Joint, Humeral Surface, Open Approach (ICD-10-PCS; 2024-10-15)
PROC: 0RRJ0J6 Replacement of Right Shoulder Joint with Synthetic Substitute, Humeral Surface, Open Approach (ICD-10-PCS; 2024-10-15)
PROC: 02HV33Z Insertion of Infusion Device into Superior Vena Cava, Percutaneous Approach (ICD-10-PCS; 2024-10-16)
PROC: B5181ZA Fluoroscopy of Superior Vena Cava using Low Osmolar Contrast, Guidance (ICD-10-PCS; 2024-10-16)
DX: T84.59XA Infection and inflammatory reaction due to other internal joint prosthesis, initial encounter (principal); N39.0 Urinary tract infection, site not specified; R78.81 Bacteremia; B96.1 Klebsiella pneumoniae [K. pneumoniae] as the cause of diseases classified elsewhere; Y83.1 Surgical operation with implant of artificial internal device as the cause of abnormal reaction of the patient, or of later complication, without mention of misadventure at the time of the procedure; B96.20 Unspecified Escherichia coli [E. coli] as the cause of diseases classified elsewhere; F32.A Depression, unspecified; I10 Essential (primary) hypertension; E78.00 Pure hypercholesterolemia, unspecified; G89.29 Other chronic pain; K27.9 Peptic ulcer, site unspecified, unspecified as acute or chronic, without hemorrhage or perforation; Z96.611 Presence of right artificial shoulder joint; M75.51 Bursitis of right shoulder; K21.9 Gastro-esophageal reflux disease without esophagitis; Z96.652 Presence of left artificial knee joint; Z87.891 Personal history of nicotine dependence; Z79.899 Other long term (current) drug therapy; Z87.11 Personal history of peptic ulcer disease; Z98.84 Bariatric surgery status; F41.9 Anxiety disorder, unspecified
CPT/HCPCS: 10060; 71045; 73020; 73030; 73200; 80048; 80053; 81003; 81015; 82248; 82607; 82728; 83540; 83550; 85025; 85027; 85610; 85652; 85730; 86140; 86803; 86850; 86900; 86901; 87015; 87040; 87070; 87075; 87077; 87086; 87154; 87176; 87186; 87205; 89051; 96374; 96375; 97162; 97167; 97535; 99285; C1713; C1776; J2916

== ENCOUNTER → 2024-11-14 14:20 | Outpatient (REF) | payer MEDICARE, BC, SELFPAY ==
[2024-11-14 15:56] LABS: Hematocrit 36.3 % (37.0-47.0); Hemoglobin 11.9 g/dL (12.0-16.0); Mean Corp Hgb Conc. 32.8 g/dL (33.0-37.0); Mean Corpuscular Volume 95.0 fL (81.0-99.0); Nucleated Red Blood Cells % 0 %; Platelet Count 256 10^3/uL (130-400); Red Cell Dist. Width 13.4 % (11.5-14.5)
[2024-11-14 16:01] LABS: Urine Character Clear (Clear)
[2024-11-14 16:18] LABS: ALT (SGPT) 20 U/L (0-35); AST (SGOT) 28 U/L (14-36); Albumin 4.4 g/dl (3.5-5.0); Alkaline Phosphatase 121 U/L (38-126); Blood Urea Nitrogen 15 mg/dl (7-17); Calcium 9.9 mg/dl (8.4-10.2); Carbon Dioxide 30 mmol/L (22-30); Chloride 103 mmol/L (98-107); Glucose 106 mg/dl (70-99); Potassium 4.4 mmol/L (3.5-5.1); Sodium 138 mmol/L (135-145); Total Protein 7.3 g/dl (6.3-8.2); Very Low Density Lipoprotein 17 mg/dl (0-30); eGFR > 60.00
[2024-11-14 16:28] LABS: HDL Cholesterol 112 mg/dl; LDL Cholesterol, Calculated 67 mg/dl
[2024-11-14 16:37] LABS: Vitamin D, 25-OH*** 57.9 ng/mL (30-80)
[2024-11-14 17:09] LABS: Vitamin B12 918 pg/ml (239-931)
[2024-11-14 17:12] LABS: Urine Squamous Cell >30 /LPF (Few)
[2024-11-14 17:13] LABS: Urine Red Blood Cell 0-2 /HPF (0-2)
== END ==
LOC: REG 14:20
PROVIDERS: ATTENDING PHYSICIAN Nurse Practitioner Adult Health
DX: E78.00 Pure hypercholesterolemia, unspecified (principal); I10 Essential (primary) hypertension; Z79.84 Long term (current) use of oral hypoglycemic drugs; R93.1 Abnormal findings on diagnostic imaging of heart and coronary circulation; E53.8 Deficiency of other specified B group vitamins; Z98.84 Bariatric surgery status
CPT/HCPCS: 36415; 80053; 80061; 81003; 81015; 82306; 82607; 84443; 85025

== ENCOUNTER → 2024-12-27 11:03 | Outpatient (REF) | payer MEDICARE, BC, SELFPAY ==
[2024-12-27 12:05] LABS: Hematocrit 39.9 % (37.0-47.0); Hemoglobin 13.2 g/dL (12.0-16.0); Mean Corp Hgb Conc. 33.1 g/dL (33.0-37.0); Mean Corpuscular Volume 94.3 fL (81.0-99.0); Nucleated Red Blood Cells % 0 %; Platelet Count 237 10^3/uL (130-400); Red Cell Dist. Width 13.2 % (11.5-14.5)
[2024-12-27 12:15] VITALS: BP 149/77; BP_SYST 82
[2024-12-27 12:30] LABS: C-Reactive Protein < 5.00 mg/L (0.0-10.00)
[2024-12-27 13:10] VITALS: BP 136/73; BP_SYST 82
== END ==
LOC: RADI 11:03
PROVIDERS: ATTENDING PHYSICIAN Orthopaedic Surgery Hand Surgery; FAMILY PHYSICIAN Nurse Practitioner Adult Health
DX: T84.59XA Infection and inflammatory reaction due to other internal joint prosthesis, initial encounter (principal); Y83.8 Other surgical procedures as the cause of abnormal reaction of the patient, or of later complication, without mention of misadventure at the time of the procedure; M25.511 Pain in right shoulder
CPT/HCPCS: 20610; 36415; 77002; 85025; 85652; 86140; 87015; 87070; 87075; 87102; 87205; 87206

== ENCOUNTER → 2025-01-03 09:38 | Outpatient (REF) | payer MEDICARE, BC, SELFPAY | LOC: HWRAD 09:38 | PROVIDERS: ATTENDING PHYSICIAN Orthopaedic Surgery Hand Surgery; FAMILY PHYSICIAN Nurse Practitioner Adult Health | DX: M25.511 Pain in right shoulder (principal) | CPT/HCPCS: 73200 ==

== ENCOUNTER → 2025-01-28 15:26 | Outpatient (REF) | payer MEDICARE, BC, SELFPAY | LOC: WDC 15:26 | PROVIDERS: ATTENDING PHYSICIAN Nurse Practitioner Adult Health | DX: Z12.31 Encounter for screening mammogram for malignant neoplasm of breast (principal) | CPT/HCPCS: 77063; 77067 ==